=== PATIENT | female | born 1960 | race Caucasian/White ===

== ENCOUNTER 2018-09-17 10:51 | Emergency (ER) | payer MEDICARE, SELFPAY ==
[2018-09-17 10:54] VITALS: BP 155/87; PULSE 80; RESP 12; TEMP 37; O2SAT 99
--- NOTE | 2018-09-17 11:28 | ED.GENADUL_ITS ---
Discharge Plan Disposition Patient Disposition: HOME Condition: Improving Discharge Details Chief Complaint: EyeProblem Clinical Impression: Acute maxillary sinusitis, Acute conjunctivitis of left eye Primary Care Provider: Shashank Mar ED Provider: Ed Solis Home Meds and New Rx's Prescriptions: New amoxicillin-pot clavulanate 875-125 mg tablet 1 tab PO BID 10 Days Qty: 20 RF: 0 Continued fluticasone 50 mcg/actuation spray,suspension 1 spray MERRILL DAILY Qty: 9.9 RF: 11 ibuprofen 200 MG capsule 2 cap PO BID RF: 0 ferrous gluconate 325 MG tablet 325 mg PO DAILY Qty: 100 RF: 2 ascorbic acid (vitamin C) [Vitamin C] 500 MG tablet 500 mg PO BID RF: 0 calcium citrate-vitamin D3 1 EACH tablet 1 ea PO DAILY RF: 0 cholecalciferol (vitamin D3) 1,000 UNIT tablet 5,000 unit PO DAILY RF: 0 trazodone 100 MG tablet 100 mg PO DAILY Qty: 90 RF: 3 gabapentin 100 MG capsule 100 - 200 mg PO BID Qty: 300 RF: 6 lisinopril-hydrochlorothiazide 1 EACH tablet 0.5 tab-cap PO DAILY Qty: 45 RF: 4 doxepin 10 MG capsule 2 cap PO as directed Qty: 270 RF: 2 lorazepam 0.5 MG tablet 0.5 mg PO BID PRN for anxiety Qty: 60 RF: 3 cyanocobalamin (vitamin B-12) 1,000 MCG/1 ML solution 1 ml IM EVERY 5 DAYS 90 Days Qty: 18 RF: 3 syringe (disposable) 1 EACH syringe 1 ea IM EVERY 5 DAYS 90 Days Qty: 18 RF: 3 Discharge Instructions Instructions: Sinusitis (ED), Conjunctivitis (ED) Additional Instructions: 1 to eyedrops 3-4 times per day to left eye for 5 days. Augmentin as prescribed for 10 days. Continue regular medications. Return for development of pain in the eye, fever, worsening or any other acute concerns per Medical Decision Making 58-year-old female with left eye conjunctivitis with surrounding mild ecchymosis and edema, presents stating this feels similar to previous sinus infections with concomitant conjunctivitis. She is well-appearing with unremarkable vital signs. Will treat with topical antibiotic as well as Augmentin. She is stable for discharge to home. HPI General Mode of arrival: ambulatory . Date/Time Provider Initiated Documentation: 09/17/18 11:19 . Limitations to Documentation: no limitations . Information obtained by: patient . History of Present Illness 58 year old F presents to the emergency department with the chief complaint of Left eye swelling and discharge, described as moderate and similar to prior episodes, Quality is described as dull, and is localized to the eyes and left. Patient reports no radiation. Patient started experiencing this hour(s) and it has been constant. No relieving factors improve symptom(s), Patient did receive the following treatments prior to arrival, none Related Data Home Medications Medication Instructions Recorded Confirmed ferrous gluconate 325 mg PO DAILY #100 tab 12/02/12 08/02/18 ibuprofen 2 cap PO BID tab-cap 12/02/12 08/02/18 ascorbic acid (vitamin C) [Vitamin 500 mg PO BID 12/28/12 08/02/18 C] calcium citrate-vitamin D3 1 ea PO DAILY 09/20/13 08/02/18 cholecalciferol (vitamin D3) 5,000 unit PO DAILY 06/21/17 08/02/18 trazodone 100 mg PO DAILY #90 tab-cap 01/03/18 08/02/18 gabapentin 100 - 200 mg PO BID #300 tab-cap 02/03/18 08/02/18 lisinopril-hydrochlorothiazide 0.5 tab-cap PO DAILY #45 tab-cap 02/21/18 08/02/18 doxepin 2 cap PO as directed #270 tab-cap 03/08/18 08/02/18 lorazepam 0.5 mg PO BID PRN for anxiety #60 03/08/18 08/02/18 tab-cap cyanocobalamin (vitamin B-12) 1 ml IM EVERY 5 DAYS 90 Days #18 03/20/18 08/02/18 vial syringe (disposable) #18 syringe 03/20/18 08/02/18 fluticasone 50 mcg/actuation nasal 1 spray MERRILL DAILY #9.9 gm 06/16/18 08/02/18 spray,suspension amoxicillin-pot clavulanate 1 tab PO BID 10 Days #20 tab 09/17/18 Previous Rx's Medication Instructions Recorded trazodone 100 mg PO DAILY #90 tab-cap 01/03/18 gabapentin 100 - 200 mg PO BID #300 tab-cap 02/03/18 lisinopril-hydrochlorothiazide 0.5 tab-cap PO DAILY #45 tab-cap 02/21/18 doxepin 2 cap PO as directed #270 tab-cap 03/08/18 lorazepam 0.5 mg PO BID PRN for anxiety #60 03/08/18 tab-cap cyanocobalamin (vitamin B-12) 1 ml IM EVERY 5 DAYS 90 Days #18 03/20/18 vial syringe (disposable) #18 syringe 03/20/18 fluticasone 50 mcg/actuation nasal 1 spray MERRILL DAILY #9.9 gm 06/16/18 spray,suspension amoxicillin-pot clavulanate 1 tab PO BID 10 Days #20 tab 09/17/18 Allergies Allergy/AdvReac Type Severity Reaction Status Date / Time doxycycline AdvReac Severe ABD Unverified 09/17/18 10:58 CRAMPS/ CONSTIPATION propranolol AdvReac Intermediate DEPRESSION Unverified 09/17/18 10:58 albuterol AdvReac Mild tremors Unverified 09/17/18 10:58 meloxicam AdvReac Mild fluid Unverified 09/17/18 10:58 retention erythromycin base AdvReac Unknown NAUSEA/VOMI Unverified 09/17/18 10:58 TING General Stated Complaint: EyeProblem JOLENE: 4 Review of Systems Review of Systems 6 systems reviewed and otherwise neg [facility] Surgical History Ankle repair (left) Appendectomy Arthroplasty Biopsy of breast (~2005) Frozen shoulder Hand Surgery 11/01/16 Tonsillectomy Trigger Finger release (~07/2009) Family History Mother No problems noted. Father Essential hypertension Personal history of malignant neoplasm Sister Diabetes Essential hypertension Depression Brother No problems noted. Grandfather No problems noted. Grandfather Heart disease Stroke Grandmother Personal history of malignant neoplasm Grandmother Personal history of malignant neoplasm Son No problems noted. Daughter Asthma Social History household members: none current occupational status: disabled pets and animals: Yes pets and animals: cat(s) frequency: does not exercise Smoking/Tobacco Use Status: Current every day tobacco type: cigarettes alcohol intake: never substance use type: does not use darci/gnosticism: No preference special darci needs: No Exam Narrative Exam Narrative: GEN: awake, alert, oriented 3. Pleasant, well groomed, interactive. HEAD: Normocephalic, atraumatic ENT: Mucous membranes moist, oropharynx unremarkable, External ear exam unremarkable. Left frontal sinus tenderness to percussion, mild periorbital sweat and left EYES: PERRL, EOMI. left conjunctival injection, crusting of the eyelids, mild ecchymosis present. NECK: Full ROM, no GUSTAVO, no menigismus CHEST/RESP: Nontender, clear to auscultation bilateral, no wheeze/rhonchi/rales CARDIOVASCULAR: RRR, no murmur, rub gilberto. 2+ Rad pulse bilateral ABDOMEN: Soft, nontender, no mass. +Bowel sounds EXT: Full ROM, no edema, no rash Neuro: Grossly normal neurologic exam, conversant, interactive. Psych: Speech fluent, thoughts congruent, affect normal Course Vital Signs Temperature 37.0 C 09/17/18 10:54 Pulse 80 09/17/18 10:54 Respiratory Rate 12 09/17/18 10:54 Blood Pressure 155/87 H 09/17/18 10:54 Pulse Oximetry 99 09/17/18 10:54 Temperature 37.0 C 09/17/18 10:54 Pulse 80 09/17/18 10:54 Respiratory Rate 12 09/17/18 10:54 Respiratory Effort Non-Labored 09/17/18 10:56 Blood Pressure 155/87 H 09/17/18 10:54 Blood Pressure Position Sitting 09/17/18 10:54 Pulse Oximetry 99 09/17/18 10:54 Oxygen Delivery Method Room Air 09/17/18 10:54 Oxygen Flow Rate 0 09/17/18 10:54 Pain Level 4 09/17/18 10:54
[2018-09-17] MEDS: Polymyxin B/Trimethoprim Ophth Soln 10 ML BTL OS (11:36)
== END 2018-09-17 11:48 | disposition home or self-care (01) ==
PROVIDERS: Emergency Provider Emergency Medicine; PCP Family Medicine
DX: H02.844 Edema of left upper eyelid (principal); J01.00 Acute maxillary sinusitis, unspecified; H10.32 Unspecified acute conjunctivitis, left eye; I10 Essential (primary) hypertension
CPT/HCPCS: 99283

== ENCOUNTER 2018-09-27 11:22 | Outpatient (CLI) | payer MEDICARE, SELFPAY ==
[2018-09-27 12:42] LABS: Abs Immature Grans 0.01 k/cumm (0.0-0.09); Absolute Basophil Count 0.07 k/cumm (0.0-0.2); Absolute Eosinophil Count 0.09 k/cumm (0.0-0.7); Absolute Monocyte Count 0.49 k/cumm (0.11-0.7); Absolute Neutrophil Count 4.08 k/cumm (1.2-6.7); Basophils % 1.1; Eosinophils % 1.4; HCT 40.7 % (36.0-46.0); HGB 13.7 g/dL (12.0-15.5); Immature Grans % 0.2; Lymphocytes % 26.4; Mean Corp. HGB Concentration 33.7 g/dL (32.0-36.0); Mean Corpuscular Hemoglobin 27.2 pg (27.0-33.0); Mean Corpuscular Volume 80.8 fL (80-95); Mean Platelet Volume 9.4 fL (8.0-11.0); Monocytes % 7.6; Neutrophils % 63.3; Platelet Count 244 x1000/uL (130-400); RBC 5.04 m/cumm (4.00-5.20); RBC Distribution Width 14.8 % (11.7-14.6); White Blood Cell Count 6.44 k/cumm (4.4-10.8)
[2018-09-27 13:22] LABS: ALT 15 U/L (12-78); AST 11 U/L (15-37); Albumin 3.8 g/dL (3.4-5.0); Alkaline Phosphatase 61 U/L (46-116); Anion Gap 7.8 mmol/L (3-11); BUN 9 mg/dL (7-18); Bilirubin, Total 0.4 mg/dL (0.2-1.0); CO2 30.2 mmol/L (21.0-32.0); CREATININE 0.98 mg/dL (0.55-1.02); Calcium 9.4 mg/dL (8.5-10.1); Chloride 102 mmol/L (98-107); Cholesterol 196 mg/dL (50-200); Estimated GFR 57.89 (mL/min/1.73m2); Glucose 98 mg/dL (70-100); HDL Cholesterol 59 mg/dL (40-60); LDL CHOLESTEROL 129 mg/dL (<100); Potassium 3.9 mmol/L (3.5-5.1); Sodium 140 mmol/L (136-145); Total Protein 6.6 g/dL (6.4-8.2); Triglyceride 44 mg/dL (30-150)
== END 2018-09-27 11:42 ==
PROVIDERS: PCP Family Medicine; Visit Provider Family Medicine
DX: I10 Essential (primary) hypertension (principal); F17.200 Nicotine dependence, unspecified, uncomplicated; F32.9 Major depressive disorder, single episode, unspecified; J45.20 Mild intermittent asthma, uncomplicated
CPT/HCPCS: 36415; 80053; 80061; 83721; 85025

== ENCOUNTER 2019-02-12 13:41 | Emergency (ER) | payer MEDICARE, SELFPAY ==
[2019-02-12 13:45] VITALS: BP 161/72; PULSE 84; RESP 16; TEMP 36.8; O2SAT 98
--- NOTE | 2019-02-12 14:07 | W.ED.GENAD ---
Discharge Plan Disposition Patient Disposition: HOME Condition: Good Discharge Details Chief Complaint: Laceration Clinical Impression: Avulsion of skin of finger Primary Care Provider: Shashank Mar ED Provider: Gage Avila Home Meds and New Rx's Prescriptions: Continued fluticasone propionate 50 mcg/actuation spray,suspension 1 spray MERRILL DAILY Qty: 9.9 RF: 11 montelukast [Singulair] 10 mg tablet 10 mg PO QPM Qty: 30 RF: 11 trazodone 100 mg tablet 100 - 150 mg PO QHS Qty: 135 RF: 3 syringe (disposable) 3 mL syringe 1 ea IM EVERY 5 DAYS 90 Days Qty: 18 RF: 3 cyanocobalamin (vitamin B-12) 1,000 mcg/mL solution 1,000 mcg IM EVERY 5 DAYS 90 Days Qty: 18 RF: 3 ibuprofen 200 MG capsule 2 cap PO BID RF: 0 ferrous gluconate 325 MG tablet 325 mg PO DAILY Qty: 100 RF: 2 ascorbic acid (vitamin C) [Vitamin C] 500 MG tablet 500 mg PO BID RF: 0 calcium citrate-vitamin D3 1 EACH tablet 1 ea PO DAILY RF: 0 cholecalciferol (vitamin D3) 1,000 UNIT tablet 5,000 unit PO DAILY RF: 0 gabapentin 100 MG capsule 100 - 200 mg PO BID Qty: 300 RF: 6 lisinopril-hydrochlorothiazide 1 EACH tablet 0.5 tab-cap PO DAILY Qty: 45 RF: 4 lorazepam 0.5 MG tablet 0.5 mg PO BID PRN for anxiety Qty: 60 RF: 3 levalbuterol tartrate 45 mcg/actuation HFA aerosol inhaler 2 inh IH Q4H PRN (Reason: shortness of breath or wheezing) Qty: 15 RF: 11 Discharge Instructions Instructions: Skin Avulsion (ED) Additional Instructions: Continue to keep wound clean and dry and observe for any signs of infection. If wound looks infected please return to the emergency department for reassessment. Otherwise follow-up with primary care provider for reassessment as needed. Referrals: Shashank Mar [Primary Care Provider] - (As needed for reassessment) Discharge Data Discharge Date/Time-TO BE ENTERED AT DEPARTURE: 02/12/19 14:19 Medical Decision Making Patient presenting to the emergency department for chief complaint of left index finger injury. Patient states that she was placing an air conditioner in the window when it pinched her finger in between the unit and the windowsill. Patient denies any other injury or trauma. Patient states that she went through 3 bandages that continue to bleed before coming to the emergency department. Physical exam shows a skin avulsion to the radial aspect of the left index finger that is approximately 1.5 cm otherwise unremarkable exam with full range of motion, no other injury or trauma noted. I do not feel the patient needs radiological imaging but given that the wound continues to bleed patient consented to digital block and cleaning of the wound before applying Dermabond. This was all done without any incident and patient tolerated procedure well. Return precautions were discussed. After discussion of diagnosis and plan of care patient has no further needs, questions, or concerns and states clear understanding to return to the emergency department for any worsening symptoms. HPI General Mode of arrival: ambulatory. Date/Time Provider Initiated Documentation: 02/12/19 13:42. Limitations to Documentation: no limitations. Information obtained by: patient and RN notes reviewed. History of Present Illness 58 year old F presents to the emergency department with the chief complaint of Left index finger laceration, described as mild, with intensity rated at 3. Quality is described as aching, and is localized to the left and upper extremity. Patient started experiencing this hour(s) (1) and it has been constant. Patient notes no other symptoms.. Patient did receive the following treatments prior to arrival, none Related Data Home Medications Medication Instructions Recorded Confirmed ferrous gluconate 325 mg PO DAILY #100 tab 12/02/12 02/12/19 ibuprofen 2 cap PO BID tab-cap 12/02/12 02/12/19 ascorbic acid (vitamin C) [Vitamin 500 mg PO BID 12/28/12 02/12/19 C] calcium citrate-vitamin D3 1 ea PO DAILY 09/20/13 02/12/19 cholecalciferol (vitamin D3) 5,000 unit PO DAILY 06/21/17 02/12/19 gabapentin 100 - 200 mg PO BID #300 tab-cap 02/03/18 02/12/19 lisinopril-hydrochlorothiazide 0.5 tab-cap PO DAILY #45 tab-cap 02/21/18 02/12/19 lorazepam 0.5 mg PO BID PRN for anxiety #60 03/08/18 02/12/19 tab-cap fluticasone propionate 50 1 spray MERRILL DAILY #9.9 gm 06/16/18 02/12/19 mcg/actuation nasal spray,suspension montelukast 10 mg tablet 10 mg PO QPM #30 tab 09/27/18 02/12/19 cyanocobalamin (vit B-12) 1,000 1,000 mcg IM EVERY 5 DAYS 90 Days 01/09/19 02/12/19 mcg/mL injection solution #18 vial syringe (disposable) 3 mL #18 syringe 01/09/19 01/09/19 trazodone 100 mg tablet 100 - 150 mg PO QHS #135 tab-cap 01/09/19 02/12/19 levalbuterol HFA 45 mcg/actuation 2 inh IH Q4H PRN #15 gm 02/07/19 02/12/19 aerosol inhaler Previous Rx's Medication Instructions Recorded gabapentin 100 - 200 mg PO BID #300 tab-cap 02/03/18 lisinopril-hydrochlorothiazide 0.5 tab-cap PO DAILY #45 tab-cap 02/21/18 lorazepam 0.5 mg PO BID PRN for anxiety #60 03/08/18 tab-cap fluticasone propionate 50 1 spray MERRILL DAILY #9.9 gm 06/16/18 mcg/actuation nasal spray,suspension montelukast 10 mg tablet 10 mg PO QPM #30 tab 09/27/18 cyanocobalamin (vit B-12) 1,000 1,000 mcg IM EVERY 5 DAYS 90 Days 01/09/19 mcg/mL injection solution #18 vial syringe (disposable) 3 mL #18 syringe 01/09/19 trazodone 100 mg tablet 100 - 150 mg PO QHS #135 tab-cap 01/09/19 levalbuterol HFA 45 mcg/actuation 2 inh IH Q4H PRN #15 gm 02/07/19 aerosol inhaler Allergies Allergy/AdvReac Type Severity Reaction Status Date / Time doxycycline AdvReac Severe ABD Unverified 01/09/19 11:56 CRAMPS/ CONSTIPATION propranolol AdvReac Intermediate DEPRESSION Unverified 01/09/19 11:56 albuterol AdvReac Mild tremors Unverified 01/09/19 11:56 meloxicam AdvReac Mild fluid Unverified 01/09/19 11:56 retention erythromycin base AdvReac Unknown NAUSEA/VOMI Unverified 01/09/19 11:56 TING General Stated Complaint: Laceration JOLENE: 4 Review of Systems Musculoskeletal Denies deformity, Denies limited range of motion and Denies numbness Integumentary/Breasts Reports as per HPI Neurologic Denies numbness and Denies paresthesias [facility] Surgical History Ankle repair (left) Appendectomy Arthroplasty Biopsy of breast (~2005) Frozen shoulder Hand Surgery 11/01/16 Tonsillectomy Trigger Finger release (~07/2009) Family History Mother ALS (amyotrophic lateral sclerosis) Father Essential hypertension Prostate cancer Stroke Sister Diabetes Essential hypertension Depression Heart disease Brother Alcohol abuse Depression Essential hypertension Maternal Grandfather No problems noted. Paternal Grandfather Heart disease Stroke Maternal Grandmother Cancer Paternal Grandmother Vaginal cancer Son No problems noted. Daughter Asthma Social History Smoking/Tobacco Use Status: Current every day Tobacco Type: cigarettes Smoking cigarettes per day: 10 Quit status: considering quitting Second Hand Exposure: Yes Alcohol Intake: never Drug use: Never Substance use type: does not use Household members: none Housing: house Pets and animals: Yes Pets and animals: cat(s) Sexually active: No Do you think of yourself as: straight/heterosexual Current gender identity: female What is your relationship status?: How often do you talk on the phone with friends or family?: three or more times per week How often do you get together with friends or relatives?: three or more times per week How often do you attend religion or methodist services?: decline to answer Do you belong to any clubs or organized social groups?: no Panel score (0-1 are the most socially isolated patients): 1 What type of physical activity do you participate in: other Details: Daily chores Duration: 60-90 minutes/day Frequency: daily Jessica/Advent: No preference Special jessica needs: No Do you feel safe at home: Yes Do you feel safe in your relationship?: Yes Exam Const General: cooperative and no acute distress Orientation: alert, awake and oriented x3 Limitations: mental status not altered Resp Effort & Inspection: normal respiratory effort and able to speak in complete sentences Extrem Left upper extremity: hand Details: normal capillary refill, neuromotor exam normal, neurosensory exam normal, tendon exam normal, normal ROM of fingers and laceration (1.5 cm skin avulsion to index finger-radial aspect) Course Vital Signs Temperature 36.8 C 02/12/19 13:45 Pulse 84 02/12/19 13:45 Respiratory Rate 16 02/12/19 13:45 Blood Pressure 161/72 H 02/12/19 13:45 Pulse Oximetry 98 02/12/19 13:45 Temperature 36.8 C 02/12/19 13:45 Temperature Source Tympanic 02/12/19 13:45 Pulse 84 02/12/19 13:45 Respiratory Rate 16 02/12/19 13:45 Respiratory Effort 02/12/19 13:49 Blood Pressure 161/72 H 02/12/19 13:45 Blood Pressure Position Sitting 02/12/19 13:45 Pulse Oximetry 98 02/12/19 13:45 Oxygen Delivery Method Room Air 02/12/19 13:45 Oxygen Flow Rate 0 02/12/19 13:45 Pain Level 4 02/12/19 13:56 Procedures Laceration L index: Site: hand (index finger) Side (If applicable): left Size (cm): 1.5 Description: linear Depth: simple, single layer (Superficial) Local Anesthetic: Lidocaine 1% (Digital block) Amount of anesthesia used (mL): 2 Pre-repair: wound explored and irrigated extensively Skin layer closed with: other (Skin adhesive)
--- NOTE | 2019-02-12 14:11 | ED.GENADUL_ITS ---
Discharge Plan Disposition Patient Disposition: HOME Condition: Good Discharge Details Chief Complaint: Laceration Clinical Impression: Avulsion of skin of finger Primary Care Provider: Shashank Mar ED Provider: Gage Avila Home Meds and New Rx's Prescriptions: Continued fluticasone propionate 50 mcg/actuation spray,suspension 1 spray MERRILL DAILY Qty: 9.9 RF: 11 montelukast [Singulair] 10 mg tablet 10 mg PO QPM Qty: 30 RF: 11 trazodone 100 mg tablet 100 - 150 mg PO QHS Qty: 135 RF: 3 syringe (disposable) 3 mL syringe 1 ea IM EVERY 5 DAYS 90 Days Qty: 18 RF: 3 cyanocobalamin (vitamin B-12) 1,000 mcg/mL solution 1,000 mcg IM EVERY 5 DAYS 90 Days Qty: 18 RF: 3 ibuprofen 200 MG capsule 2 cap PO BID RF: 0 ferrous gluconate 325 MG tablet 325 mg PO DAILY Qty: 100 RF: 2 ascorbic acid (vitamin C) [Vitamin C] 500 MG tablet 500 mg PO BID RF: 0 calcium citrate-vitamin D3 1 EACH tablet 1 ea PO DAILY RF: 0 cholecalciferol (vitamin D3) 1,000 UNIT tablet 5,000 unit PO DAILY RF: 0 gabapentin 100 MG capsule 100 - 200 mg PO BID Qty: 300 RF: 6 lisinopril-hydrochlorothiazide 1 EACH tablet 0.5 tab-cap PO DAILY Qty: 45 RF: 4 lorazepam 0.5 MG tablet 0.5 mg PO BID PRN for anxiety Qty: 60 RF: 3 levalbuterol tartrate 45 mcg/actuation HFA aerosol inhaler 2 inh IH Q4H PRN (Reason: shortness of breath or wheezing) Qty: 15 RF: 11 Discharge Instructions Instructions: Skin Avulsion (ED) Additional Instructions: Continue to keep wound clean and dry and observe for any signs of infection. If wound looks infected please return to the emergency department for reassessment. Otherwise follow-up with primary care provider for reassessment as needed. Referrals: Shashank Mar [Primary Care Provider] - (As needed for reassessment) Discharge Data Discharge Date/Time-TO BE ENTERED AT DEPARTURE: 02/12/19 14:19 Medical Decision Making Patient presenting to the emergency department for chief complaint of left index finger injury. Patient states that she was placing an air conditioner in the window when it pinched her finger in between the unit and the windowsill. Patient denies any other injury or trauma. Patient states that she went through 3 bandages that continue to bleed before coming to the emergency department. Physical exam shows a skin avulsion to the radial aspect of the left index finger that is approximately 1.5 cm otherwise unremarkable exam with full range of motion, no other injury or trauma noted. I do not feel the patient needs radiological imaging but given that the wound continues to bleed patient consented to digital block and cleaning of the wound before applying Dermabond. This was all done without any incident and patient tolerated procedure well. Return precautions were discussed. After discussion of diagnosis and plan of care patient has no further needs, questions, or concerns and states clear understanding to return to the emergency department for any worsening symptoms. HPI General Mode of arrival: ambulatory . Date/Time Provider Initiated Documentation: 02/12/19 13:42 . Limitations to Documentation: no limitations . Information obtained by: patient and RN notes reviewed . History of Present Il catarinaess 58 year old F presents to the emergency department with the chief complaint of Left index finger laceration, described as mild, with intensity rated at 3. Quality is described as aching, and is localized to the left and upper extremity. Patient started experiencing this hour(s) (1) and it has been constant. Patient notes no other symptoms.. Patient did receive the following treatments prior to arrival, none Related Data Home Medications Medication Instructions Recorded Confirmed ferrous gluconate 325 mg PO DAILY #100 tab 12/02/12 02/12/19 ibuprofen 2 cap PO BID tab-cap 12/02/12 02/12/19 ascorbic acid (vitamin C) [Vitamin 500 mg PO BID 12/28/12 02/12/19 C] calcium citrate-vitamin D3 1 ea PO DAILY 09/20/13 02/12/19 cholecalciferol (vitamin D3) 5,000 unit PO DAILY 06/21/17 02/12/19 gabapentin 100 - 200 mg PO BID #300 tab-cap 02/03/18 02/12/19 lisinopril-hydrochlorothiazide 0.5 tab-cap PO DAILY #45 tab-cap 02/21/18 02/12/19 lorazepam 0.5 mg PO BID PRN for anxiety #60 03/08/18 02/12/19 tab-cap fluticasone propionate 50 1 spray MERRILL DAILY #9.9 gm 06/16/18 02/12/19 mcg/actuation nasal spray,suspension montelukast 10 mg tablet 10 mg PO QPM #30 tab 09/27/18 02/12/19 cyanocobalamin (vit B-12) 1,000 1,000 mcg IM EVERY 5 DAYS 90 Days 01/09/19 02/12/19 mcg/mL injection solution #18 vial syringe (disposable) 3 mL #18 syringe 01/09/19 01/09/19 trazodone 100 mg tablet 100 - 150 mg PO QHS #135 tab-cap 01/09/19 02/12/19 levalbuterol HFA 45 mcg/actuation 2 inh IH Q4H PRN #15 gm 02/07/19 02/12/19 aerosol inhaler Previous Rx's Medication Instructions Recorded gabapentin 100 - 200 mg PO BID #300 tab-cap 02/03/18 lisinopril-hydrochlorothiazide 0.5 tab-cap PO DAILY #45 tab-cap 02/21/18 lorazepam 0.5 mg PO BID PRN for anxiety #60 03/08/18 tab-cap fluticasone propionate 50 1 spray MERRILL DAILY #9.9 gm 06/16/18 mcg/actuation nasal spray,suspension montelukast 10 mg tablet 10 mg PO QPM #30 tab 09/27/18 cyanocobalamin (vit B-12) 1,000 1,000 mcg IM EVERY 5 DAYS 90 Days 01/09/19 mcg/mL injection solution #18 vial syringe (disposable) 3 mL #18 syringe 01/09/19 trazodone 100 mg tablet 100 - 150 mg PO QHS #135 tab-cap 01/09/19 levalbuterol HFA 45 mcg/actuation 2 inh IH Q4H PRN #15 gm 02/07/19 aerosol inhaler Allergies Allergy/AdvReac Type Severity Reaction Status Date / Time doxycycline AdvReac Severe ABD Unverified 01/09/19 11:56 CRAMPS/ CONSTIPATION propranolol AdvReac Intermediate DEPRESSION Unverified 01/09/19 11:56 albuterol AdvReac Mild tremors Unverified 01/09/19 11:56 meloxicam AdvReac Mild fluid Unverified 01/09/19 11:56 retention erythromycin base AdvReac Unknown NAUSEA/VOMI Unverified 01/09/19 11:56 TING General Stated Complaint: Laceration JOLENE: 4 Review of Systems Musculoskeletal Denies deformity, Denies limited range of motion and Denies numbness Integumentary/Breasts Reports as per HPI Neurologic Denies numbness and Denies paresthesias [facility] Surgical History Ankle repair (left) Appendectomy Arthroplasty Biopsy of breast (~2005) Frozen shoulder Hand Surgery 11/01/16 Tonsillectomy Trigger Finger release (~07/2009) Family History Mother ALS (amyotrophic lateral sclerosis) Father Essential hypertension Prostate cancer Stroke Sister Diabetes Essential hypertension Depression Heart disease Brother Alcohol abuse Depression Essential hypertension Maternal Grandfather No problems noted. Paternal Grandfather Heart disease Stroke Maternal Grandmother Cancer Paternal Grandmother Vaginal cancer Son No problems noted. Daughter Asthma Social History Smoking/Tobacco Use Status: Current every day Tobacco Type: cigarettes Smoking cigarettes per day: 10 Quit status: considering quitting Second Hand Exposure: Yes Alcohol Intake: never Drug use: Never Substance use type: does not use Household members: none Housing: house Pets and animals: Yes Pets and animals: cat(s) Sexually active: No Do you think of yourself as: straight/heterosexual Current gender identity: female What is your relationship status?: How often do you talk on the phone with friends or family?: three or more times per week How often do you get together with friends or relatives?: three or more times per week How often do you attend moravian or nondenominational services?: decline to answer Do you belong to any clubs or organized social groups?: no Panel score (0-1 are the most socially isolated patients): 1 What type of physical activity do you participate in: other Details: Daily chores Duration: 60-90 minutes/day Frequency: daily Jessica/Buddhism: No preference Special jessica needs: No Do you feel safe at home: Yes Do you feel safe in your relationship?: Yes Exam Const General: cooperative and no acute distress Orientation: alert, awake and oriented x3 Limitations: mental status not altered Resp Effort & Inspection: normal respiratory effort and able to speak in complete sentences Extrem Left upper extremity: hand Details: normal capillary refill, neuromotor exam normal, neurosensory exam normal, tendon exam normal, normal ROM of fingers and laceration (1.5 cm skin avulsion to index finger-radial aspect) Course Vital Signs Temperature 36.8 C 02/12/19 13:45 Pulse 84 02/12/19 13:45 Respiratory Rate 16 02/12/19 13:45 Blood Pressure 161/72 H 02/12/19 13:45 Pulse Oximetry 98 02/12/19 13:45 Temperature 36.8 C 02/12/19 13:45 Temperature Source Tympanic 02/12/19 13:45 Pulse 84 02/12/19 13:45 Respiratory Rate 16 02/12/19 13:45 Respiratory Effort 02/12/19 13:49 Blood Pressure 161/72 H 02/12/19 13:45 Blood Pressure Position Sitting 02/12/19 13:45 Pulse Oximetry 98 02/12/19 13:45 Oxygen Delivery Method Room Air 02/12/19 13:45 Oxygen Flow Rate 0 02/12/19 13:45 Pain Level 4 02/12/19 13:56 Procedures Laceration L index: Site: hand (index finger) Side (If applicable): left Size (cm): 1.5 Description: linear Depth: simple, single layer (Superficial) Local Anesthetic: Lidocaine 1% (Digital block) Amount of anesthesia used (mL): 2 Pre-repair: wound explored and irrigated extensively Skin layer closed with: other (Skin adhesive)
== END 2019-02-12 14:19 | disposition home or self-care (01) ==
LOC: ER 14:26
PROVIDERS: Emergency Provider Nurse Practitioner Family; PCP Family Medicine
DX: S67.191A Crushing injury of left index finger, initial encounter (principal); S61.211A Laceration without foreign body of left index finger without damage to nail, initial encounter; W23.0XXA Caught, crushed, jammed, or pinched between moving objects, initial encounter
CPT/HCPCS: 12001

== ENCOUNTER 2019-03-26 19:35 | Outpatient (REF) | payer MEDICARE, SELFPAY ==
[2019-03-26 20:18] LABS: Bilirubin Negative (Negative); Blood Large (Negative); Clarity Clear (Clear); Glucose Negative (Negative); Ketones Negative (Negative); Leukocyte Esterase Large (Negative); Nitrite Negative (Negative); Urobilinogen 0.2 EU/dL (Up TO 0.2)
[2019-03-26 20:21] LABS: C & S Indicated? C&S Done As Ordered
[2019-03-26 21:29] LABS: Bacteria Many HPF (Negative); Casts Negative LPF (Negative); Crystals Negative HPF (Negative); Epithelial Cells Negative HPF (Negative); Mucus Negative (Negative); RBC >50 (0-2); WBC >50 HPF (0-5)
== END 2019-03-26 19:55 ==
LOC: LBN 19:35
PROVIDERS: PCP Family Medicine; Visit Provider Family Medicine
DX: R30.0 Dysuria (principal)
CPT/HCPCS: 81003; 81015; 87086

== ENCOUNTER 2019-08-20 07:00 | Outpatient (CLI) | payer MEDICARE, SELFPAY ==
[2019-08-20 12:57] LABS: Abs Immature Grans 0.01 k/cumm (0.0-0.09); Absolute Basophil Count 0.08 k/cumm (0.0-0.2); Absolute Eosinophil Count 0.14 k/cumm (0.0-0.7); Absolute Lymphocyte Count 1.73 k/cumm (1.2-3.4); Absolute Monocyte Count 0.53 k/cumm (0.11-0.7); Absolute Neutrophil Count 3.61 k/cumm (1.2-6.7); Basophils % 1.3; Eosinophils % 2.3; HCT 41.8 % (36.0-46.0); HGB 14.2 g/dL (12.0-15.5); Immature Grans % 0.2 %; Lymphocytes % 28.4; Mean Corpuscular Hemoglobin 27.3 pg (27.0-33.0); Mean Corpuscular Volume 80.2 fL (80-95); Mean Platelet Volume 9.3 fL (8.0-11.0); Monocytes % 8.7; Neutrophils % 59.1; Platelet Count 263 x1000/uL (130-400); RBC 5.21 m/cumm (4.00-5.20); RBC Distribution Width 14.8 % (11.7-14.6)
[2019-08-20 13:13] LABS: Bilirubin Negative (Negative); Blood Negative (Negative); Clarity Clear (Clear); Glucose Negative (Negative); Ketones Negative (Negative); Leukocyte Esterase Small (Negative); Nitrite Negative (Negative); Specific Gravity 1.015 (1.005-1.025); Urobilinogen 0.2 EU/dL (Up TO 0.2)
[2019-08-20 13:16] LABS: AST 15 U/L (15-37); Albumin 4.1 g/dL (3.4-5.0); Alkaline Phosphatase 59 U/L (46-116); Anion Gap 6.5 mmol/L (3-11); BUN 10 mg/dL (7-18); Bilirubin, Total 0.7 mg/dL (0.2-1.0); CO2 31.5 mmol/L (21.0-32.0); CREATININE 0.92 mg/dL (0.55-1.02); Calcium 9.4 mg/dL (8.5-10.1); Chloride 102 mmol/L (98-107); Glucose 96 mg/dL (74-106); Potassium 4.1 mmol/L (3.5-5.1); Sodium 140 mmol/L (136-145); TSH (W/Ref FT4) 0.92 uIU/mL (0.36-3.74); Total Protein 6.8 g/dL (6.4-8.2)
[2019-08-20 13:19] LABS: ALT < 6 U/L (14-59)
[2019-08-20 13:41] LABS: Bacteria Few HPF (Negative); C & S Indicated? Yes; Casts Negative LPF (Negative); Crystals Negative HPF (Negative); Epithelial Cells Negative HPF (Negative); Mucus Negative (Negative); Other Cells Few Renal (Negative); RBC Negative HPF (0-2)
== END 2019-08-20 07:20 ==
PROVIDERS: PCP Family Medicine; Visit Provider Family Medicine
DX: R53.83 Other fatigue (principal); R82.998 Other abnormal findings in urine
CPT/HCPCS: 36415; 80053; 81003; 81015; 84443; 85025; 87086

== ENCOUNTER 2019-09-17 21:24 | Outpatient (REF) | payer MEDICARE, SELFPAY ==
[2019-09-17 22:18] LABS: Bilirubin Negative (Negative); Blood Negative (Negative); Clarity Clear (Clear); Glucose Negative (Negative); Ketones Negative (Negative); Leukocyte Esterase Trace (Negative); Nitrite Negative (Negative); Specific Gravity 1.015 (1.005-1.025); Urobilinogen 0.2 EU/dL (Up TO 0.2)
[2019-09-17 22:24] LABS: C & S Indicated? C&S Done As Ordered
[2019-09-17 22:25] LABS: Epithelial Cells Few HPF (Negative); RBC Negative HPF (0-2); WBC 0-2 HPF (0-5)
[2019-09-17 22:26] LABS: Bacteria Negative HPF (Negative); Casts Negative LPF (Negative); Crystals Negative HPF (Negative); Mucus Negative (Negative); Other Cells Negative (Negative)
== END 2019-09-17 21:44 ==
LOC: LBN 21:24
PROVIDERS: PCP Family Medicine; Visit Provider Family Medicine
DX: R10.9 Unspecified abdominal pain (principal)
CPT/HCPCS: 81003; 81015; 87086

== ENCOUNTER 2020-01-21 22:19 | Outpatient (REF) | payer MEDICARE, SELFPAY | END 2020-01-21 22:39 | LOC: LBN 22:19 | PROVIDERS: PCP Family Medicine; Visit Provider Nurse Practitioner Family | DX: R30.0 Dysuria (principal) | CPT/HCPCS: 87077; 87086; 87186 ==

== ENCOUNTER 2020-02-22 14:04 | Emergency (ER) | payer MEDICARE, SELFPAY ==
[2020-02-22 14:11] VITALS: BP 162/72; PULSE 85; RESP 20; TEMP 36.7; O2SAT 96
--- NOTE | 2020-02-22 14:15 | DI.RAD_ITS ---
EXAM: XR WRIST LT COMPLETE CLINICAL HISTORY: fall/pain. TECHNIQUE: 2D digital imaging was performed. COMPARISON: No exams were available for comparison FINDINGS: BONES: No acute fracture is present. No bony destructive lesion is seen. JOINTS: The carpal bones are normally aligned. There are degenerative changes of the 1st carpal metac arpal joint. SOFT TISSUE: Normal. IMPRESSION: Degenerative changes. No acute abnormality. DATA REPOSITORY: RADIATION DOSE DELIVERED:
--- NOTE | 2020-02-22 14:21 | ED.GENADUL_ITS ---
Discharge Plan Disposition Patient Disposition: HOME Condition: Stable Discharge Details Chief Complaint: Orthopedic Clinical Impression: Pain, wrist Primary Care Provider: Shashank Mar ED Provider: Doug Howard Home Meds and New Rx's Prescriptions: Continued fluticasone propionate 50 mcg/actuation spray,suspension 1 spray MERRILL DAILY Qty: 9.9 RF: 11 montelukast [Singulair] 10 mg tablet 10 mg PO QPM Qty: 90 RF: 3 cetirizine 10 mg tablet 10 mg PO DAILY Qty: 90 RF: 3 lisinopril-hydrochlorothiazide 10-12.5 mg tablet 1 tab PO DAILY Qty: 90 RF: 3 trazodone 100 mg tablet 100 mg PO QHS RF: 0 lorazepam 0.5 mg tablet 0.5 mg PO BID PRN for anxiety PRNRF: 0 azelastine 0.05 % drops 1 drp OP BID Qty: 6 RF: 5 Saccharomyces boulardii [Daily Probiotic (S. boulardii)] 250 mg capsule 250 mg PO BID Qty: 60 RF: 3 ascorbic acid (vitamin C) [Vitamin C] 500 MG tablet 500 mg PO BID RF: 0 calcium citrate-vitamin D3 1 EACH tablet 1 ea PO DAILY RF: 0 cholecalciferol (vitamin D3) 1,000 UNIT tablet 5,000 unit PO DAILY RF: 0 levalbuterol tartrate 45 mcg/actuation HFA aerosol inhaler 2 inh IH Q4H PRN (Reason: shortness of breath or wheezing) Qty: 15 RF: 11 (DME) syringe (disposable) 3 mL syringe 1 ea IM EVERY 5 DAYS 90 Days Qty: 18 RF: 3 cyanocobalamin (vitamin B-12) 1,000 mcg/mL solution 1,000 mcg IM EVERY 5 DAYS 90 Days Qty: 18 RF: 3 gabapentin 100 mg capsule 200 mg PO TID Qty: 540 RF: 3 nitrofurantoin monohyd/m-cryst [Macrobid] 100 mg capsule 100 mg PO BID Qty: 10 RF: 0 triamcinolone acetonide 0.5 % cream 1 applic TP BID Qty: 60 RF: 5 Discharge Instructions Instructions: Wrist Injury (ED) Additional Instructions: X-ray does not reveal any obvious injury. Wear splint as needed, advance activity as tolerated. Iqrs-[id number]-vaneyet medications such as Tylenol and/or Motrin as directed for discomfort. Rest, elevate, cool compresses every 2 hours for 20 days. Please watch for new or worsening symptoms and return to the ER for any concerns. I do recommend following up with your primary care provider in 5-7 days if you do not have moderate improvement with conservative therapy Medical Decision Making Patient presents to the ER having had a mechanical slip and fall injuring her left wrist. This occurred late last night early this morning. She is right- hand dominant. Neuro, vascular, tendon intact. No distracting injury. Will obtain x-ray to rule any bony involvement Wrist x-ray read by me and then confirmed by radiology as no acute fracture. Discussed x-ray findings with patient. She is relieved and is agreeable for a premade wrist splint. Applied without difficulty. She reports it does feel better with immobility and support. No additional questions or concerns and she is comfortable with discharge. Medical Records Medical records reviewed: Yes I reviewed the patient's medical records. HPI General Mode of arrival: ambulatory . Date/Time Provider Initiated Documentation: 02/22/20 14:20 . Limitations to Documentation: no limitations . Information obtained by: patient . HPI Narrative: 59-year-old female with history of neuropathy, anxiety, arthritis, hypertension, seizures, asthma, presents having had a mechanical fall late last night, early this morning between 12 and 1. She slipped on wet grass and injured her left wrist. She reports the pain is mild at rest but moderate with any movement. She reports no change in her numbness, tingling, weakness other than her baseline neuropathy. She denies any other injury. She did not strike her head or have a LOC. She is right-hand dominant Related Data Home Medications Medication Instructions Recorded Confirmed ascorbic acid (vitamin C) [Vitamin 500 mg PO BID 12/28/12 02/22/20 C] calcium citrate-vitamin D3 1 ea PO DAILY 09/20/13 02/22/20 cholecalciferol (vitamin D3) 5,000 unit PO DAILY 06/21/17 02/22/20 fluticasone propionate 50 1 spray MERRILL DAILY #9.9 gm 06/16/18 02/22/20 mcg/actuation nasal spray,suspension levalbuterol tartrate 45 2 inh IH Q4H PRN #15 gm 02/07/19 02/22/20 mcg/actuation aerosol inhaler cyanocobalamin (vitamin B-12) 1,000 mcg IM EVERY 5 DAYS 90 Days 03/12/19 02/22/20 1,000 mcg/mL injection solution #18 vial syringe (disposable) 3 mL #18 syringe 03/12/19 02/22/20 lorazepam 0.5 mg tablet 0.5 mg PO BID PRN for anxiety PRN 06/13/19 02/22/20 tab-cap trazodone 100 mg tablet 100 mg PO QHS tab-cap 06/13/19 02/22/20 cetirizine 10 mg tablet 10 mg PO DAILY #90 tab 09/24/19 02/22/20 lisinopril 10 1 tab PO DAILY #90 tab-cap 09/24/19 02/22/20 mg-hydrochlorothiazide 12.5 mg tablet montelukast 10 mg tablet 10 mg PO QPM #90 tab 09/24/19 02/22/20 gabapentin 100 mg capsule 200 mg PO TID #540 tab-cap 12/18/19 02/22/20 Saccharomyces boulardii 250 mg 250 mg PO BID #60 cap 12/19/19 02/22/20 capsule azelastine 0.05 % eye drops 1 drp OP BID #6 ml 12/19/19 02/22/20 nitrofurantoin 100 mg PO BID #10 cap 01/22/20 02/22/20 monohydrate/macrocrystals 100 mg capsule triamcinolone acetonide 0.5 % 1 applic TP BID #60 gm 01/22/20 02/22/20 topical cream Previous Rx's Medication Instructions Recorded fluticasone propionate 50 1 spray MERRILL DAILY #9.9 gm 06/16/18 mcg/actuation nasal spray,suspension levalbuterol tartrate 45 2 inh IH Q4H PRN #15 gm 02/07/19 mcg/actuation aerosol inhaler cyanocobalamin (vitamin B-12) 1,000 mcg IM EVERY 5 DAYS 90 Days 03/12/19 1,000 mcg/mL injection solution #18 vial syringe (disposable) 3 mL #18 syringe 03/12/19 cetirizine 10 mg tablet 10 mg PO DAILY #90 tab 09/24/19 lisinopril 10 1 tab PO DAILY #90 tab-cap 09/24/19 mg-hydrochlorothiazide 12.5 mg tablet montelukast 10 mg tablet 10 mg PO QPM #90 tab 09/24/19 gabapentin 100 mg capsule 200 mg PO TID #540 tab-cap 12/18/19 Saccharomyces boulardii 250 mg 250 mg PO BID #60 cap 12/19/19 capsule azelastine 0.05 % eye drops 1 drp OP BID #6 ml 12/19/19 nitrofurantoin 100 mg PO BID #10 cap 01/22/20 monohydrate/macrocrystals 100 mg capsule triamcinolone acetonide 0.5 % 1 applic TP BID #60 gm 01/22/20 topical cream Allergies Allergy/AdvReac Type Severity Reaction Status Date / Time doxycycline AdvReac Severe ABD Verified 02/22/20 14:13 CRAMPS/ CONSTIPATION propranolol AdvReac Intermediate DEPRESSION Verified 02/22/20 14:13 albuterol AdvReac Mild tremors Verified 02/22/20 14:13 meloxicam AdvReac Mild fluid Verified 02/22/20 14:13 retention erythromycin base AdvReac Unknown NAUSEA/VOMI Verified 02/22/20 14:13 TING General Stated Complaint: Orthopedic JOLENE: 4 Review of Systems Constitutional Constitutional: Denies fever(s) and Denies headache(s) Eyes Eyes: Denies change in vision ENT Ears, Nose, Mouth, and Throat: Denies headache(s) and Denies neck pain Cardiovascular Cardiovascular: Denies chest pain and Denies dyspnea Respiratory Respiratory: Denies dyspnea Gastrointestinal Gastrointestinal: Denies nausea Musculoskeletal Musculoskeletal: Reports back pain (Chronic) and Denies neck pain Neurologic Neurologic: Denies headache(s) [facility] Surgical History Ankle repair (left) Appendectomy age 13 Arthroplasty [facility] [place] 10/11/17; RIGHT BASAL JOINT WITH PINNING Biopsy of breast (~2005) Frozen shoulder Hand Surgery 11/01/16 Tonsillectomy Trigger Finger release (~07/2009) Thumb Family History Mother , 70 ALS (amyotrophic lateral sclerosis) Father Essential hypertension Prostate cancer Stroke Skin cancer Sister Diabetes Essential hypertension Depression Heart disease Brother Alcohol abuse Depression Essential hypertension Maternal Grandfather No problems noted. Paternal Grandfather , 89 Heart disease Stroke Maternal Grandmother , approx 60 Cancer Paternal Grandmother , 59 Vaginal cancer Heart disease Son Heart disease Daughter Asthma Social History Smoking/Tobacco Use Status: Current every day Tobacco Type: cigarettes Tobacco: How many years used: 30 Quit status: considering quitting Second Hand Exposure: Yes Alcohol Intake: never Drug use: Never Substance use type: does not use Caregiver/Support person: No Household members: none Housing: house Communication Needs: Hard of Hearing and Corrective Lenses Do you need help understanding health information?: Rarely Pets and animals: Yes Pets and animals: cat(s) Sexually active: No Do you think of yourself as: straight/heterosexual Current gender identity: female What is your relationship status?: How often do you talk on the phone with friends or family?: three or more times per week How often do you get together with friends or relatives?: three or more times per week How often do you attend religion or mu-ism services?: decline to answer Do you belong to any clubs or organized social groups?: no Panel score (0-1 are the most socially isolated patients): 1 What type of physical activity do you participate in: decline to answer Duration: decline to answer Frequency: decline to answer Jessica/Muslim: None Special jessica needs: No Seatbelt use: sometimes Drive intox or ride 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: No Do you feel safe at home: Yes Do you feel safe in your relationship?: Yes Exam Const General: cooperative, healthy appearing, comfortable and no acute distress Orientation: alert and awake HENMT Head: normal to inspection, normocephalic and atraumatic Mouth: moist mucous membranes Eyes Conjunctivae: conjunctivae normal Neck Neck: normal visual inspection, trachea midline and supple Resp Effort & Inspection: normal respiratory effort and able to speak in complete sentences Cardio Rate: regular rate Rhythm: regular rhythm Skin General skin exam: no rashes or lesions noted Neuro General: patient alert, patient awake, moves all extremities and no focal motor deficits Sensory Exam: no sensory deficits noted Extrem Left upper extremity: normal capillary refill and wrist Details: tenderness Location: of the distal radius and of the distal ulna, swelling Location: other (Mild diffuse dorsal wrist), normal ROM and abnormal ROM (Range of motion increases discomfort) Psych Appearance: grossly normal Mental Status: mental status grossly normal Course Vital Signs Vital signs: Vital Signs Temperature 36.7 C 07/10/20 14:11 Pulse 85 02/22/20 14:11 Respiratory Rate 20 02/22/20 14:11 Blood Pressure 162/72 H 02/22/20 14:11 Pulse Oximetry 96 02/22/20 14:11 Temperature 36.7 C 02/22/20 14:11 Temperature Source Skin 02/22/20 14:11 Pulse 85 02/22/20 14:11 Respiratory Rate 20 02/22/20 14:11 Respiratory Effort Non-Labored 02/22/20 14:12 Blood Pressure 162/72 H 02/22/20 14:11 Blood Pressure Position Sitting 02/22/20 14:11 Pulse Oximetry 96 02/22/20 14:11 Oxygen Delivery Method Room Air 02/22/20 14:11 Oxygen Flow Rate 0 02/22/20 14:11 Pain Level 7 02/22/20 14:11 Comment 02/22/20 14:11
== END 2020-02-22 15:19 | disposition home or self-care (01) ==
PROVIDERS: Emergency Provider Physician Assistant; PCP Family Medicine
DX: M25.532 Pain in left wrist (principal); I10 Essential (primary) hypertension
CPT/HCPCS: 29125; 99283; 73110; L3908

== ENCOUNTER 2020-03-12 13:22 | Outpatient (REF) | payer MEDICARE, SELFPAY ==
[2020-03-12 14:04] LABS: Abs Immature Grans 0.02 10^3/uL (0.0-0.06); Absolute Basophil Count 0.07 10^3/uL (0.0-0.2); Absolute Eosinophil Count 0.13 10^3/uL (0.0-0.7); Absolute Lymphocyte Count 1.92 10^3/uL (1.2-3.4); Absolute Monocyte Count 0.46 10^3/uL (0.1-0.8); Absolute Neutrophil Count 3.91 10^3/uL (1.2-6.7); Basophils % 1.1; HCT 43.1 % (36.0-46.0); HGB 14.4 g/dL (11.2-15.7); Immature Grans % 0.3; Lymphocytes % 29.5; MCH 27.3 pg (27.0-33.0); MCHC 33.4 % (32.0-36.0); MCV 81.6 fL (80-95); MPV 9.5 fL (8.0-11.0); Monocytes % 7.1; Platelet Count 279 10^3/uL (130-400); RBC 5.28 10^6/uL (3.93-5.22); RDW 14.4 % (11.7-14.6); RDW-SD 42.6 fL; WBC 6.51 10^3/uL (4.4-10.8)
[2020-03-12 14:55] LABS: ESR 4 mm/hr (0-30)
== END 2020-03-12 13:42 ==
LOC: LBN 13:22
PROVIDERS: PCP Family Medicine; Visit Provider Family Medicine
DX: R51 Headache (principal); I10 Essential (primary) hypertension
CPT/HCPCS: 85652; 85025

== ENCOUNTER 2020-08-22 04:46 | Outpatient (CLI) | payer MEDICARE, SELFPAY ==
--- NOTE | 2020-08-22 06:15 | DI.US_ITS ---
EXAM: US HERNIA CLINICAL HISTORY: left inguinal swelling, c/o hernia,r19.09. TECHNIQUE: Ultrasound was performed using standard protocol. COMPARISON: CT ABD/PELVIS WO W CONTRAST from 01/13/2018 FINDINGS: Sonographic assessment utilizing grayscale and color Doppler imaging was performed and targeted to th e area of clinical concern. There appears to be a fat containing left inguinal hernia. The hernia opening measures 1.2 cm. IMPRESSION: Sonographic findings suggesting a fat containing left inguinal hernia. DATA REPOSITORY:
== END 2020-08-22 05:06 ==
PROVIDERS: PCP Family Medicine; Visit Provider Physician Assistant
DX: R19.09 Other intra-abdominal and pelvic swelling, mass and lump (principal)
CPT/HCPCS: 76857

== ENCOUNTER 2020-09-25 02:46 | Outpatient (CLI) | payer MEDICARE, SELFPAY ==
[2020-09-25 12:42] LABS: HCT 41.1 % (36.0-46.0); HGB 13.8 g/dL (11.2-15.7); MCHC 33.6 % (32.0-36.0); MCV 80.3 fL (80-95); MPV 9.1 fL (8.0-11.0); Platelet Count 270 10^3/uL (130-400); RBC 5.12 10^6/uL (3.93-5.22); WBC 6.88 10^3/uL (4.4-10.8)
[2020-09-25 12:53] LABS: Bilirubin Negative (Negative); Blood Negative (Negative); Clarity Cloudy (Clear); Glucose Negative (Negative); Ketones Negative (Negative); Leukocyte Esterase Moderate (Negative); Nitrite Negative (Negative); Urobilinogen 0.2 EU/dL (Up TO 0.2)
[2020-09-25 12:55] LABS: Iron 101 ug/dL (50-170)
[2020-09-25 13:07] LABS: Bacteria Many HPF (Negative); C & S Indicated? Yes; Casts Negative LPF (Negative); Crystals Negative HPF (Negative); Epithelial Cells Few HPF (Negative); Mucus Negative (Negative); RBC 0-2 HPF (0-2); WBC 20-50 HPF (0-5)
[2020-09-25 13:12] LABS: ALT 17 U/L (14-59); AST 12 U/L (15-37); Albumin 4.1 g/dL (3.4-5.0); Alkaline Phosphatase 55 U/L (46-116); Anion Gap 10.1 mmol/L (3-11); BUN 11 mg/dL (7-18); Bilirubin, Total 0.4 mg/dL (0.2-1.0); CO2 25.9 mmol/L (21.0-32.0); Calcium 9.2 mg/dL (8.5-10.1); Chloride 97 mmol/L (98-107); Estimated GFR 56.18 (mL/min/1.73m2); Ferritin 279 ng/mL (8-252); Glucose 101 mg/dL (74-106); Potassium 4.2 mmol/L (3.5-5.1); Sodium 133 mmol/L (136-145); Total Protein 6.6 g/dL (6.4-8.2)
== END 2020-09-25 02:47 | disposition home or self-care (01) ==
LOC: LOS 02:47
PROVIDERS: PCP Family Medicine; Visit Provider Family Medicine
DX: D50.9 Iron deficiency anemia, unspecified (principal); I10 Essential (primary) hypertension; R35.0 Frequency of micturition
CPT/HCPCS: 36415; 80053; 85027; 87077; 81003; 81015; 82728; 83540; 87086; 87186

== ENCOUNTER 2020-10-13 03:37 | Outpatient (CLI) | payer MEDICARE, SELFPAY ==
[2020-10-13 12:50] LABS: Hemoglobin A1C 5.5 % (<5.7)
[2020-10-13 13:17] LABS: Calculated LDL 137 mg/dL (<100); Cholesterol 205 mg/dL (<200); HDL Cholesterol 58 mg/dL (40-60); Triglyceride 53 mg/dL (<150); Vitamin B12 1693 pg/mL (193-986)
== END 2020-10-13 03:38 | disposition home or self-care (01) ==
LOC: LOS 03:37
PROVIDERS: PCP Family Medicine; Visit Provider Nurse Practitioner Family
DX: E78.5 Hyperlipidemia, unspecified (principal); R73.01 Impaired fasting glucose; E53.8 Deficiency of other specified B group vitamins
CPT/HCPCS: 36415; 80061; 82607; 83036

== ENCOUNTER 2020-10-17 15:34 | Outpatient (REF) | payer MEDICARE, SELFPAY ==
[2020-10-20 12:51] LABS: COVID-19 RT-PCR UVMMC Result Negative (Negative)
== END 2020-10-17 15:35 | disposition home or self-care (01) ==
LOC: LBN 15:34
PROVIDERS: PCP Family Medicine; Visit Provider Student in an Organized Health Care Education/Training Program
DX: Z20.822 Contact with and (suspected) exposure to COVID-19 (principal)
CPT/HCPCS: U0003

== ENCOUNTER 2020-10-29 12:01 | Outpatient (REF) | payer MEDICARE, SELFPAY ==
[2020-10-29 22:00] LABS: Anion Gap 9.4 mmol/L (3-11); BUN 12 mg/dL (7-18); CO2 27.6 mmol/L (21.0-32.0); Calcium 9.7 mg/dL (8.5-10.1); Chloride 96 mmol/L (98-107); Creatine Kinase 87 U/L (26-192); Estimated GFR 56.18 (mL/min/1.73m2); Glucose 98 mg/dL (74-106); Potassium 4.1 mmol/L (3.5-5.1); Sodium 133 mmol/L (136-145)
[2020-10-30 09:35] LABS: ESR 16 mm/hr (<or=30)
[2020-10-31 11:34] LABS: Lyme Ab w Rflx to Lyme Confirm Positive (Negative)
[2020-11-01 00:15] LABS: Anaplasma phagocytophilum Negative (Negative); B. miyamotoi PCR Negative (Negative); Babesia divergens/MO-1 Negative (Negative); Babesia duncani Negative (Negative); Babesia microti Negative (Negative); Ehrlichia chaffeensis Negative (Negative); Ehrlichia ewingii/canis Negative (Negative); Ehrlichia muris eauclairensis Negative (Negative)
[2020-11-02 15:22] LABS: ANA Interpretation Negative (Negative)
[2020-11-05 13:28] LABS: IgG Band(s) p93; IgG Immunoblot Negative (Negative); IgM Band(s) p23; IgM Immunoblot Negative (Negative)
== END 2020-10-29 12:02 | disposition home or self-care (01) ==
LOC: LBN 12:01
PROVIDERS: PCP Family Medicine; Visit Provider Physician Assistant
DX: R53.83 Other fatigue (principal); M79.18 Myalgia, other site; F19.90 Other psychoactive substance use, unspecified, uncomplicated
CPT/HCPCS: 80048; 82550; 85652; 86617; 87798; 86038; 86618

== ENCOUNTER 2020-11-12 14:29 | Outpatient (REF) | payer MEDICARE, SELFPAY | END 2020-11-12 14:30 | disposition home or self-care (01) | LOC: LBN 14:29 | PROVIDERS: PCP Family Medicine; Visit Provider Nurse Practitioner Family | DX: R53.83 Other fatigue (principal); M79.10 Myalgia, unspecified site | CPT/HCPCS: 84443 ==

== ENCOUNTER → 2020-11-24 09:51 | Outpatient (BNVA) | payer MEDICARE, SELFPAY | PROVIDERS: PCP Nurse Practitioner Family; Referring Provider Physician Assistant; Visit Provider Psychiatry & Neurology Neurology | DX: R25.1 Tremor, unspecified (principal); E53.8 Deficiency of other specified B group vitamins; G62.9 Polyneuropathy, unspecified; R42 Dizziness and giddiness | CPT/HCPCS: 99215; G2212 ==

== ENCOUNTER 2021-01-23 10:26 | Emergency (ER) | payer MEDICARE, SELFPAY ==
[2021-01-23 10:29] VITALS: BP 153/94; PULSE 93; TEMP 36.5; O2SAT 99
[2021-01-23] MEDS: LORazepam 1 MG TAB PO (10:45)
--- NOTE | 2021-01-23 10:45 | DI.US_ITS ---
Exam(s) US HERNIA EXAM: US HERNIA CLINICAL HISTORY: left inguinal hernia. TECHNIQUE: Ultrasound was performed using standard protocol. COMPARISON: US US HERNIA from 08/22/2020 FINDINGS: Sonographic assessment utilizing grayscale and color Doppler imaging was performed and targeted to th e area of clinical concern. No definite evidence of a left inguinal hernia. IMPRESSION: DATA REPOSITORY:
[2021-01-23 10:47] LABS: Bilirubin Negative (Negative); Blood Negative (Negative); Clarity Clear (Clear); Glucose Negative (Negative); Ketones Negative (Negative); Leukocyte Esterase Negative (Negative); Nitrite Negative (Negative); Specific Gravity 1.015 (1.005-1.025); Urobilinogen 0.2 EU/dL (Up TO 0.2)
[2021-01-23 10:55] LABS: HCT 42.9 % (36.0-46.0); HGB 14.1 g/dL (11.2-15.7); MCH 26.8 pg (27.0-33.0); MCHC 32.9 % (32.0-36.0); MCV 81.4 fL (80-95); MPV 8.3 fL (8.0-11.0); Platelet Count 277 10^3/uL (130-400); RBC 5.27 10^6/uL (3.93-5.22); RDW 14.6 % (11.7-14.6); WBC 7.59 10^3/uL (4.4-10.8)
--- NOTE | 2021-01-23 11:05 | ED.GENADUL_ITS ---
Discharge Plan Disposition Patient Disposition: HOME Condition: Good Discharge Details Clinical Impression: Direct inguinal hernia of left side Primary Care Provider: Johny Herrera ED Provider: Lisette Pugh Home Meds and New Rx's Prescriptions: No Action lorazepam 0.5 mg tablet 0.5 mg PO BID PRN for anxiety Qty: 60 RF: 3 trazodone 100 mg tablet 100 mg PO QHS PRNRF: 0 amlodipine 5 mg tablet 5 mg PO DAILY Qty: 90 RF: 4 cetirizine 10 mg tablet 10 mg PO DAILY Qty: 90 RF: 4 lisinopril 40 mg tablet 40 mg PO DAILY Qty: 90 RF: 4 hydrochlorothiazide 25 mg tablet 25 mg PO DAILY Qty: 90 RF: 4 montelukast [Singulair] 10 mg tablet 10 mg PO QPM Qty: 90 RF: 4 triamcinolone acetonide 0.1 % cream 1 applic topical DAILY PRN (Reason: dermatitis) Qty: 80 RF: 0 ascorbic acid (vitamin C) [Vitamin C] 500 MG tablet 500 mg PO BID RF: 0 calcium citrate-vitamin D3 1 EACH tablet 1 ea PO DAILY RF: 0 cholecalciferol (vitamin D3) 1,000 UNIT tablet 5,000 unit PO DAILY RF: 0 (DME) syringe (disposable) 3 mL syringe 1 ea IM EVERY 5 DAYS 90 Days Qty: 18 RF: 3 levalbuterol tartrate 45 mcg/actuation HFA aerosol inhaler 2 inh IH Q4H PRN (Reason: shortness of breath or wheezing) Qty: 15 RF: 11 Adult 50 Plus Probiotic 4 billion cell capsule 4,000 mmu cells PO DAILY Qty: 60 RF: 0 ibuprofen 200 mg Tablet 400 mg PO Q6H PRNRF: 0 gabapentin 100 mg Capsule 200 mg PO QAM RF: 0 azelastine 0.05 % drops 1 drp OP BID PRNRF: 0 cyanocobalamin (vitamin B-12) 1,000 mcg/mL solution 1,000 mcg IM DIRECTED RF: 0 gabapentin 300 mg capsule 400 mg PO QHS RF: 0 Discharge Instructions Additional Instructions: No heavy lifting or repetitive motion, try not to engage in activities that cause the hernia to protrude, but hernia does protrude again, you may apply ice or heat, apply pressure until it resolves and stay away from the offending activity Ibuprofen and Tylenol for pain control As listed surgery, call to schedule an appointment to have your hernia repaired Referrals: Edgar Jeff DO [ CONSULTING PHYSICIAN] - Discharge Data Discharge Date/Time-TO BE ENTERED AT DEPARTURE: 01/23/21 12:04 Medical Decision Making No visible inguinal hernia, ultrasound does not show acute pathology per radiology interpretation of my review Diagnostic labs are reassuring including urinalysis Patient is given surgical referral, she is instructed to call tomorrow She is instructed not to lift any heavy items or do repetitive motions, specifically avoid activities that cause her hernia to be symptomatic pt afebrile and otherwise non-toxic Medical Records Medical records reviewed: Yes I reviewed the patient's medical records. HPI General Mode of arrival: ambulatory . Date/Time Provider Initiated Documentation: 01/23/21 10:26 . Limitations to Documentation: no limitations . HPI Narrative: This 60-year-old female was sent over from primary care with left lower abdominal pain. She has a known inguinal hernia. She states that she was raking when the pain began. She denies chest pain, shortness of breath, nausea, vomiting. States the pain is mildly improved at this time. She states she has not had surgical consultation yet. She denies any fever or chills, she denies any urinary symptoms. She denies any trauma to the affected area. Related Data Home Medications Medication Instructions Recorded Confirmed ascorbic acid (vitamin C) [Vitamin 500 mg PO BID 12/28/12 01/23/21 C] calcium citrate-vitamin D3 1 ea PO DAILY 09/20/13 01/23/21 cholecalciferol (vitamin D3) 5,000 unit PO DAILY 06/21/17 01/23/21 lorazepam 0.5 mg tablet 0.5 mg PO BID PRN for anxiety #60 04/22/20 01/23/21 tab-cap syringe (disposable) 3 mL #18 syringe 05/16/20 11/24/20 levalbuterol tartrate 45 2 inh IH Q4H PRN #15 gm 07/08/20 01/23/21 mcg/actuation aerosol inhaler amlodipine 5 mg tablet 5 mg PO DAILY #90 tab 10/02/20 01/23/21 cetirizine 10 mg tablet 10 mg PO DAILY #90 tab 10/02/20 01/23/21 hydrochlorothiazide 25 mg tablet 25 mg PO DAILY #90 tab 10/02/20 01/23/21 lisinopril 40 mg tablet 40 mg PO DAILY #90 tab 10/02/20 01/23/21 montelukast 10 mg tablet 10 mg PO QPM #90 tab 10/02/20 01/23/21 triamcinolone acetonide 0.1 % 1 applic TOPICAL DAILY PRN #80 g 10/02/20 01/23/21 topical cream lactobacillus combination no.9 4 4,000 mmu cells PO DAILY #60 cap 11/03/20 01/23/21 billion cell capsule trazodone 100 mg tablet 100 mg PO QHS PRN 11/24/20 01/23/21 azelastine 1 drp OP BID PRN 01/23/21 01/23/21 cyanocobalamin (vitamin B-12) 1,000 mcg IM DIRECTED 01/23/21 01/23/21 gabapentin 200 mg PO QAM 01/23/21 01/23/21 gabapentin 400 mg PO QHS 01/23/21 01/23/21 ibuprofen 400 mg PO Q6H PRN 01/23/21 01/23/21 Previous Rx's Medication Instructions Recorded lorazepam 0.5 mg tablet 0.5 mg PO BID PRN for anxiety #60 04/22/20 tab-cap syringe (disposable) 3 mL #18 syringe 05/16/20 levalbuterol tartrate 45 2 inh IH Q4H PRN #15 gm 07/08/20 mcg/actuation aerosol inhaler amlodipine 5 mg tablet 5 mg PO DAILY #90 tab 10/02/20 cetirizine 10 mg tablet 10 mg PO DAILY #90 tab 10/02/20 hydrochlorothiazide 25 mg tablet 25 mg PO DAILY #90 tab 10/02/20 lisinopril 40 mg tablet 40 mg PO DAILY #90 tab 10/02/20 montelukast 10 mg tablet 10 mg PO QPM #90 tab 10/02/20 triamcinolone acetonide 0.1 % 1 applic TOPICAL DAILY PRN #80 g 10/02/20 topical cream lactobacillus combination no.9 4 4,000 mmu cells PO DAILY #60 cap 11/03/20 billion cell capsule Allergies Allergy/AdvReac Type Severity Reaction Status Date / Time doxycycline AdvReac Severe ABD Verified 01/26/21 07:58 CRAMPS/ CONSTIPATION propranolol AdvReac Intermediate DEPRESSION Verified 01/26/21 07:58 albuterol AdvReac Mild tremors Verified 01/26/21 07:58 meloxicam AdvReac Mild fluid Verified 01/26/21 07:58 retention erythromycin base AdvReac Unknown NAUSEA/VOMI Verified 01/26/21 07:58 TING General Stated Complaint: Abd Prob JOLENE: 3 Review of Systems Narrative: Review of systems obtained x7 aside from where indicated in HPI [facility] Medical History Anxiety (03/08/18) Depression (05/31/17) Essential hypertension (09/20/13) Fatigue Hernia, inguinal, left 08/22/20 US - 1.2cm, fat containing Hyperlipidemia Insomnia Low back pain (01/31/15) Mild intermittent asthma Osteoarthritis (01/03/14) mid back pain (DJD on chest CT) Rosacea, unspecified (07/15/15) Seasonal allergies Varicose veins of lower extremity left leg Vitamin B 12 deficiency (07/19/14) B12 injections q 5 days per pt report. Surgical History Ankle repair (left) Appendectomy age 13 Arthroplasty [facility] [place] 10/11/17; RIGHT BASAL JOINT WITH PINNING Biopsy of breast (~2005) Frozen shoulder Hand Surgery 11/01/16 Tonsillectomy Trigger Finger release (~07/2009) Thumb Family History Mother , 70 ALS (amyotrophic lateral sclerosis) Father Essential hypertension Prostate cancer Stroke Skin cancer Sister Diabetes Essential hypertension Depression Heart disease Brother Alcohol abuse Depression Essential hypertension Maternal Grandfather No problems noted. Paternal Grandfather , 89 Heart disease Stroke Maternal Grandmother , approx 60 Cancer Paternal Grandmother , 59 Vaginal cancer Heart disease Son Heart disease Daughter Asthma Social History Smoking/Tobacco Use Status: Current every day Tobacco Type: cigarettes Smoking packs per day: 0.5 Smoking cigarettes per day: 10.0 Tobacco: How many years used: 30 Quit status: considering quitting Second Hand Exposure: Yes Smoking risk assessment performed?: Yes Alcohol Intake: never Drug use: Never Substance use type: does not use Caregiver/Support person: No Household members: none Housing: house Number of Children: 2 Communication Needs: Hard of Hearing and Corrective Lenses Do you need help understanding health information?: Rarely Pets and animals: Yes Pets and animals: cat(s) Sexually active: No Do you think of yourself as: straight/heterosexual Current gender identity: female What is your relationship status?: How often do you talk on the phone with friends or family?: three or more times per week How often do you get together with friends or relatives?: three or more times per week How often do you attend rastafarian or rastafarian services?: decline to answer Do you belong to any clubs or organized social groups?: no Panel score (0-1 are the most socially isolated patients): 1 What type of physical activity do you participate in: decline to answer Duration: decline to answer Frequency: decline to answer Jessica/Holiness: None Special jessica needs: No Seatbelt use: sometimes Drive intox or ride w/intox driver medic: No Do you feel safe at home: Yes Do you feel safe in your relationship?: Yes Female Reproductive History Menstrual Menopause type: natural History History 2 Para 2 Hx # Term Pregnancies Multiple births Hx # Pregnancies Ectopic pregnancies AB induced Hx Number of Living Children 2 AB spontaneous Exam Const General: cooperative and no acute distress Chest Chest: normal inspection of the chest Resp Effort & Inspection: normal respiratory effort Auscultation: clear to auscultation bilaterally Cardio Rate: regular rate Rhythm: regular rhythm GI Inspection: normal to inspection Other: Nontender abdominal exam, no CVA tenderness, no abdominal bruit or pulsatile mass Other: No palpable inguinal hernia, left small lymph node noted inguinal Skin General skin exam: no rashes or lesions noted Neuro General: patient alert and patient oriented x3 Course Vital Signs Vital signs: Vital Signs Temperature 36.5 C 01/23/21 10:29 Pulse 93 H 01/23/21 10:29 Blood Pressure 153/94 H 01/23/21 10:29 Pulse Oximetry 99 01/23/21 10:29 Temperature 36.5 C 01/23/21 10:29 Temperature Source Temporal Artery Scan 01/23/21 10:29 Pulse 93 H 01/23/21 10:29 Respiratory Effort Non-Labored 01/23/21 10:39 Blood Pressure 153/94 H 01/23/21 10:29 Blood Pressure Position Sitting 01/23/21 10:29 Pulse Oximetry 99 01/23/21 10:29 Oxygen Delivery Method Room Air 01/23/21 10:29 Oxygen Flow Rate 0 01/23/21 10:29 Pain Level 5 01/23/21 10:29 Lab/Test Results Lab/Test Results: Laboratory Tests Range/Units 01/23/21 01/23/21 10:32 10:47 WBC (4.4-10.8) 10^3/uL 7.59 RBC (3.93-5.22) 10^6/uL 5.27 H Hgb (11.2-15.7) g/dL 14.1 Hct (36.0-46.0) % 42.9 MCV (80-95) fL 81.4 MCH (27.0-33.0) pg 26.8 L MCHC (32.0-36.0) % 32.9 RDW (11.7-14.6) % 14.6 Plt Count (130-400) 10^3/uL 277 MPV (8.0-11.0) fL 8.3 Urine Color (Yellow) Yellow Urine Clarity (Clear) Clear Urine pH (5-8) 7.0 Ur Specific [place] (1.005-1.025) 1.015 Urine Protein (Negative) mg/dL Negative Urine Ketones (Negative) mg/dL Negative Urine Blood (Negative) Negative Urine Nitrite (Negative) Negative Urine Bilirubin (Negative) Negative Urine Urobilinogen (Up TO 0.2) EU/dL 0.2 Ur Leukocyte Esterase (Negative) Negative Urine Glucose (Negative) mg/dL Negative
[2021-01-23 11:08] LABS: ALT 19 U/L (14-59); AST 13 U/L (15-37); Albumin 4.3 g/dL (3.4-5.0); Alkaline Phosphatase 69 U/L (46-116); Anion Gap 7.2 mmol/L (3-11); BUN 10 mg/dL (7-18); Bilirubin, Total 0.5 mg/dL (0.2-1.0); CO2 29.8 mmol/L (21.0-32.0); Calcium 9.4 mg/dL (8.5-10.1); Chloride 99 mmol/L (98-107); Estimated GFR 56.18 (mL/min/1.73m2); Glucose 112 mg/dL (74-106); Potassium 3.7 mmol/L (3.5-5.1); Sodium 136 mmol/L (136-145); Total Protein 7.6 g/dL (6.4-8.2)
--- NOTE | 2021-01-23 12:05 | NUR.NOTE ---
patient advised before she was given ativan that she would need to call for a ride. upon d/c, patient refused to call for a ride. advised her that this would be put into her visit note.
== END 2021-01-23 12:04 | disposition home or self-care (01) ==
PROVIDERS: Emergency Medicine; Emergency Provider Physician Assistant; PCP Nurse Practitioner Family
DX: K40.90 Unilateral inguinal hernia, without obstruction or gangrene, not specified as recurrent (principal)
CPT/HCPCS: 36415; 76857; 80053; 85027; 99284; 81003; 99283

== ENCOUNTER → 2021-01-26 07:54 | Outpatient (BNVA) | payer MEDICARE, SELFPAY | PROVIDERS: PCP Nurse Practitioner Family; Referring Provider Nurse Practitioner Family; Visit Provider Physical Therapy Assistant | DX: K40.90 Unilateral inguinal hernia, without obstruction or gangrene, not specified as recurrent (principal); I10 Essential (primary) hypertension | CPT/HCPCS: 99214 ==

== ENCOUNTER 2021-01-26 10:11 | Outpatient (CLI) | payer MEDICARE, SELFPAY ==
[2021-01-26 11:21] LABS: Source Nasal/Nares
[2021-01-26 15:19] LABS: COVID-19 PCR Negative (Negative)
== END 2021-01-26 10:12 | disposition home or self-care (01) ==
LOC: LBO 10:12
PROVIDERS: PCP Nurse Practitioner Family; Visit Provider Surgery
DX: Z20.822 Contact with and (suspected) exposure to COVID-19 (principal); Z01.818 Encounter for other preprocedural examination; G25.2 Other specified forms of tremor; E53.8 Deficiency of other specified B group vitamins; G63 Polyneuropathy in diseases classified elsewhere
CPT/HCPCS: 87635; 99214

== ENCOUNTER 2021-01-27 09:48 | Day surgery (SDC) | payer MEDICARE, SELFPAY ==
[2021-01-27] VITALS (7 sets, daily range): BP systolic 97–147; BP diastolic 50–84; PULSE 60–74; RESP 13–16; TEMP 35.9–37; O2SAT 96–100; BMI 20.7
[2021-01-27] MEDS: Lactated Ringers 1,000 ML 80 ML IV (10:22)
--- NOTE | 2021-01-27 10:48 | W.ANESPRE ---
General Info Date of Service Date Performed: 01/27/21 Height: 5 ft 3 in Weight: 53.07 kg Body Mass Index (BMI): 20.7 Surgical Procedure: Operation Date: 01/27/21 13:10 Proposed Procedures Side Surgeon p Herniorrhaphy Inguinal Left Jennifer Hoffman, Meds Allergies and Home Medications Allergies Allergy/AdvReac Type Severity Reaction Status Date / Time doxycycline AdvReac Severe ABD Verified 01/27/21 10:03 CRAMPS/ CONSTIPATION propranolol AdvReac Intermediate DEPRESSION Verified 01/27/21 10:03 albuterol AdvReac Mild tremors Verified 01/27/21 10:03 meloxicam AdvReac Mild fluid Verified 01/27/21 10:03 retention erythromycin base AdvReac Unknown NAUSEA/VOMI Verified 01/27/21 10:03 TING Home Medication Medication Instructions Recorded ascorbic acid (vitamin C) [Vitamin 500 mg PO BID 12/28/12 C] calcium citrate-vitamin D3 1 ea PO DAILY 09/20/13 cholecalciferol (vitamin D3) 5,000 unit PO DAILY 06/21/17 lorazepam 0.5 mg tablet 0.5 mg PO BID PRN for anxiety #60 04/22/20 tab-cap syringe (disposable) 3 mL #18 syringe 05/16/20 levalbuterol tartrate 45 2 inh IH Q4H PRN #15 gm 07/08/20 mcg/actuation aerosol inhaler cetirizine 10 mg tablet 10 mg PO DAILY #90 tab 10/02/20 hydrochlorothiazide 25 mg tablet 25 mg PO DAILY #90 tab 10/02/20 lisinopril 40 mg tablet 40 mg PO DAILY #90 tab 10/02/20 montelukast 10 mg tablet 10 mg PO QPM #90 tab 10/02/20 triamcinolone acetonide 0.1 % 1 applic TOPICAL DAILY PRN #80 g 10/02/20 topical cream lactobacillus combination no.9 4 4,000 mmu cells PO DAILY #60 cap 11/03/20 billion cell capsule trazodone 100 mg tablet 100 mg PO QHS PRN 11/24/20 azelastine 1 drp OP BID PRN 01/23/21 cyanocobalamin (vitamin B-12) 1,000 mcg IM DIRECTED 01/23/21 ibuprofen 400 mg PO Q6H PRN 01/23/21 amlodipine 5 mg PO HS 01/26/21 gabapentin 300 mg capsule See Rx Instructions PO BID #270 cap 01/26/21 Current Visit Medications: Current Medications Generic Name Dose Route Start Last Admin Trade Name Klaudia PRN Reason Stop Dose Admin Ringer's Solution 1,000 mls @ 80 mls/hr 01/27/21 06:00 01/27/21 10:22 IV 02/25/21 23:59 80 mls/hr INFUSION FRACISCO Administration Cefazolin Sodium/Dextrose 2 gm in 50 mls @ 100 mls/hr 01/27/21 06:00 Ancef Duplex IVPB 02/25/21 23:59 PREOP FRACISCO IV Miscellaneous Supplies 1 each 01/27/21 06:00 Iv Access IV 02/25/21 23:59 DIRECTED FRACISCO Sodium Chloride 0 ml 01/27/21 06:00 Normal Saline Flush 10 Ml Syr IV 02/25/21 23:59 PRN PRN Sodium Chloride 0 ml 01/27/21 06:00 Normal Saline 10 Ml Vial IJ 02/25/21 23:59 DIRECTED PRN Sterile Water 0 ml 01/27/21 06:00 Water,Injection,Sterile 10 Ml Vial IJ 02/25/21 23:59 DIRECTED PRN PFSH Active Problems Active Problems: Problem Status Onset Code Abnormal involuntary movements 02/27/13 R25.9 Abnormal involuntary movement 02/27/13 R25.9 Abnormal weight loss 01/03/18 R63.4 Acute sinusitis J01.90 Allergic rhinitis 05/31/17 J30.9 Arthritis 08/31/12 M19.90 Idiopathic peripheral neuropathy 11/20/13 G60.9 Solitary pulmonary nodule 05/29/13 R91.1 Seizure 07/19/14 R56.9 Tobacco dependence 05/31/17 F17.200 Tremor 10/07/15 R25.1 Family history of coronary artery disease Z82.49 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 Status post tonsillectomy Z90.89 Status post breast biopsy Z98.890 Status post appendectomy Z90.49 Solitary pulmonary nodule 05/29/13 R91.1 History of orthopedic surgery Z98.890 Convulsions 07/19/14 R56.9 Adhesive capsulitis of shoulder M75.00 Abdominal pain 06/08/13 R10.9 Allergic conjunctivitis H10.10 Neck pain M54.2 Peripheral neuropathy G62.9 Direct inguinal hernia of left side K40.90 Anxiety 03/08/18 F41.9 Depression 05/31/17 F32.9 Fatigue R53.83 Essential hypertension 09/20/13 I10 Rosacea, unspecified 07/15/15 L71.9 Osteoarthritis 01/03/14 M19.90 Low back pain 01/31/15 M54.5 Seasonal allergies J30.2 Varicose veins of lower extremity I83.90 Vitamin B 12 deficiency 07/19/14 E53.8 Insomnia G47.00 Mild intermittent asthma J45.20 Hyperlipidemia E78.5 Hernia, inguinal, left K40.90 Medical History Medical History (Updated 01/27/21 @ 11:16 by Gustavo Winters CRNA) Anxiety (03/08/18) Depression (05/31/17) Essential hypertension (09/20/13) Fatigue Hernia, inguinal, left 08/22/20 US - 1.2cm, fat containing History of seizure Per pt. states this was a result of her b12 defiency and since adding b12 has not had a seixure in 6 years Hyperlipidemia Insomnia Low back pain (01/31/15) Mild intermittent asthma Osteoarthritis (01/03/14) mid back pain (DJD on chest CT) Rosacea, unspecified (07/15/15) Seasonal allergies Varicose veins of lower extremity left leg Vitamin B 12 deficiency (07/19/14) B12 injections q 5 days per pt report. Surgical History Surgical History Ankle repair (left) Appendectomy age 13 [place] [facility] [place]; RIGHT BASAL JOINT WITH PINNING Biopsy of breast (~2005) Frozen shoulder Hand Surgery 11/01/16 Tonsillectomy Trigger Finger release (~07/2009) Thumb Tobacco Smoking/Tobacco Use Status: Current every day Tobacco Type: cigarettes Smoking packs per day: 0.5 Tobacco: How many years used: 30 Passive smoking exposure: Yes Quit Status: considering quitting Second hand exposure: Yes Alcohol Alcohol Intake: never Substance Use Substance use: Never Substance use type: does not use Prental History History 2 Para 2 Hx # Term Pregnancies Multiple births Hx # Pregnancies Ectopic pregnancies AB induced Hx Number of Living Children 2 AB spontaneous Vital Signs and Lab Results Vital Signs Most Recent Vital Signs in EMR: Most Recent Vital Signs Temp Pulse Resp BP Pulse Ox 37.0 C 74 16 138/75 96 01/27/21 09:58 01/27/21 09:58 01/27/21 09:58 01/27/21 09:58 01/27/21 09:58 Lab Results Blood Type / Crossmatch: No Data to Display Complete Blood Count: White Blood Count 7.59 10^3/uL (4.4-10.8) 01/23/21 10:47 01/23/21 Red Blood Count 5.27 10^6/uL (3.93-5.22) H 01/23/21 10:47 01/23/21 Hemoglobin 14.1 g/dL (11.2-15.7) 01/23/21 10:47 01/23/21 Hematocrit 42.9 % (36.0-46.0) 01/23/21 10:47 01/23/21 Platelet Count 277 10^3/uL (130-400) 01/23/21 10:47 01/23/21 Complete Metabolic Panel: Sodium Level 136 mmol/L (136-145) 01/23/21 10:47 01/23/21 Potassium Level 3.7 mmol/L (3.5-5.1) 01/23/21 10:47 01/23/21 Chloride Level 99 mmol/L (98-107) 01/23/21 10:47 01/23/21 Carbon Dioxide Level 29.8 mmol/L (21.0-32.0) 01/23/21 10:47 01/23/21 Blood Urea Nitrogen 10 mg/dL (7-18) 01/23/21 10:47 01/23/21 Creatinine 1.0 mg/dL (0.55-1.02) 01/23/21 10:47 01/23/21 Calcium Level 9.4 mg/dL (8.5-10.1) 01/23/21 10:47 01/23/21 Albumin 4.3 g/dL (3.4-5.0) 01/23/21 10:47 01/23/21 Glucose Level 112 mg/dL (74-106) H 01/23/21 10:47 01/23/21 Liver Function Panel: Alanine Aminotransferase (ALT/SGPT) 19 U/L (14-59) 01/23/21 10:47 01/23/21 Aspartate Amino Transf (AST/SGOT) 13 U/L (15-37) L 01/23/21 10:47 01/23/21 Coagulation Panel: No Data to Display Cardiac Panel: No Data to Display Arterial Blood Gas: No Data to Display Venous Blood Gas: No Data to Display Pancreas Panel: No Data to Display Thyroid Panel: No Data to Display Infectious Disease: Coronavirus (COVID-19)(PCR) Negative (Negative) 01/26/21 11:10 01/26/21 Coronavirus 2019 Source Nasal/nares 01/26/21 11:10 01/26/21 Blood Cultures: No Data to Display Toxicology Panel: No Data to Display Imaging and Studies Imaging and Studies Echocardiogram Summary: 03/21/19: [facility] [place] Stress Echo: Normal study. EF 65%, Trace MR/TR. Normal PA pressures. Anesthesia Assessment and Plan Anesthesia History Personal History: PONV Family History: No Family History of Anesthesia Complications Exercise Tolerance Exercise Tolerance: Metabolic Equivalents>4 Pertinent Negatives Pertinent Negatives: No Symptoms of GERD Cardiac & Pulmonary Exam Cardiac Exam: Normal S1/S2 Heart Sounds Pulmonary Exam: Clear Bilateral Breath Sounds Airway Exam Known Difficult Airway: No Mallampati Class: 2 Mouth Opening: Normal (> 3cm) Thyromental Distance: Greater than 3 cm Neck Range of Motion: Full ROM Neck Circumference: Normal Teeth Condition: Removable Dentures/Plates Upper (Upper denture glued in place.) ASA Classification ASA Score: ASA 2 Emergency Case?: No NPO Status NPO Status: NPO Clears >2 hours, Solids >8 hours Anesthesia Plan Resuscitation Status: Full Code Anesthesia Technique: General Anesthesia Airway Planned: LMA Pain Management: Surgeon and patient request nerve block Monitors Used: Standard Monitors
[2021-01-27] MEDS: ceFAZolin 2 GM/50 ML BAG IVPB (13:03)
--- NOTE | 2021-01-27 13:53 | W.ANESNERVE ---
Nerve Block Single Injection Procedure Date and Time Date Performed: 01/27/21 Procedure Start: 13:15 Location Where Procedure Performed Procedure Location: Operating Room Procedure Stop: 13:22 Reason Performed: Postoperative Analgesia Requesting Provider: Jennifer Hoffman Timeout Performed Timeout Performed: Yes Monitoring Used ECG, Blood Pressure, SpO2, ETCO2 and See EMR for corresponding vital signs Sterility Sterility: Hand Hygiene, Surgical Cap, Surgical Mask, Sterile Gloves, Eye Protection and Chlorhexidine Sedation Given During Procedure Sedation Given (Indicate Dose Given): No Sedation given Patient Mental Status Patient Mental Status: Performed under general anesthesia Nerve Block 1st Nerve Block: Laterality: Left Block Type: TAP Unilateral Needle / Catheter Used: 100mm SonoPlex II Local Anesthetic Bolus (Indicate Dose Given): Injected in 3-5ml increments after negative blood aspiration, Bupivacaine 0.25% Dose:: 20ml and Exparel Dose:: 10ml Additives (Indicate Dose Given): None Ultrasound: Sterile probe cover and gel used Ultrasound Image Saved?: Yes Nerve Stimulator: Not Used Paresthesia: None Procedure Tolerated: No Complications and Patient tolerated well Procedure Outcome: Successful Performed By: Swati Joyce Supervised By: Gustavo Winters
--- NOTE | 2021-01-27 14:14 | ROE_ITS ---
Date of service: 01/27/21 Time of Service: 14:14 Operative Note Operative Note DATE OF PROCEDURE: 01/27/21 PRE-OP DIAGNOSIS: left inguinia hernia POST-OP DIAGNOSIS: same PROCEDURE: open inguinal hernia repair w/ mesh - direct defect SURGEON: Jennifer Santoyo CLINICAL MARKETING MANAGER: Corine Kee ANESTHESIA TYPE: Local By Surgeon, General:No Airway and Primary Nerve Block Refer to Anesthesia Record ESTIMATED BLOOD LOSS: 5 Patient was transported to: PACU Patient's condition: stable Indications: see RN notes Procedure Description: INDICATIONS: The pt is here today for surgery regarding symptomatic left inguinal hernia that has failed outpatient conservative medical management and he is here today for repair. Informed consent was obtained, explaining risks and benefits of the procedure including but not limited to bleeding, infection, pneumonia, blood clots, chronic pain, chronic numbness, recurrence of hernia, reaction to Mesh necessitating removal, and other unforetold complications, and complications of anesthesia-which were addressed by the MORTGAGE ANALYST. The patient is marked in preOp prior to the procedure DESCRIPTION OF PROCEDURE: The pt is then brought to the operative room suite. Anesthesia was administered per the Department of Anesthesia. A nerve block was performed by anesthesia under US guidance. The patient was prepped and draped in the usual sterile fashion using ChloraPrep scrub solution. Pause for the cause was done. He did receive preop IV antibiotics, and 30 mL of .25% Marcaine w/ epinephrine was used for local anesthetization. A #12 blade was used to make an incision over the external ring. Electrocautery used to provide hemostasis and dissect down to the fascia. The. External Bleich fascia is intact and is open at the ring and carried superiorly lateral direction. The nerve was not identified. Electro-cautery is used to provide hemostasis. There was no hernia sac protruding through the ring. The floor does appear to be weak. This area is investigated. It is right near the femoral vessels so I did not invert and score the area. I did not place a plug through this defect. There does not appear to be a femoral hernia. Please see RN notes from Lot number of the Bard mesh patch/plug. The patch was then placed onto the floor, and using 2-0 Vicryl, sewn into the pubic tubercle and the shelving portions of the inguinal ligament, under the external oblique. in the standard Lichenstein fashion. The wound was copiously irrigated. There was no bleeding noted. All structures are returned to normal anatomical position. The nerve is not sewn into the mesh, nor caught up in any sutures. The external oblique is re-approximated using 2-0 vicryl in a running fashion. Deep tissue was approximated with 3-0 Vicryl in a running fashion, and skin was approximated with 4-0 Monocryl in a running subcuticular fashion. Skin glue and sterile dressings are applied. The patient tolerated the procedure without complications to recovery in stable condition. JENNIFER SANTOYO, DO
--- NOTE | 2021-01-27 14:17 | W.PM.DSUDISC ---
Discharge Plan Disposition Patient Disposition: HOME Condition: Good Discharge Details Reason For Visit: (L) INGUINAL HERNIA Attending Provider: Jennifer Hoffman Primary Care Provider: Johny Herrera Home Meds and New Rx's Prescriptions: No Action lorazepam 0.5 mg tablet 0.5 mg PO BID PRN for anxiety Qty: 60 RF: 3 trazodone 100 mg tablet 100 mg PO QHS PRNRF: 0 cetirizine 10 mg tablet 10 mg PO DAILY Qty: 90 RF: 4 lisinopril 40 mg tablet 40 mg PO DAILY Qty: 90 RF: 4 hydrochlorothiazide 25 mg tablet 25 mg PO DAILY Qty: 90 RF: 4 montelukast [Singulair] 10 mg tablet 10 mg PO QPM Qty: 90 RF: 4 triamcinolone acetonide 0.1 % cream 1 applic topical DAILY PRN (Reason: dermatitis) Qty: 80 RF: 0 gabapentin 300 mg capsule See Rx Instructions PO BID Qty: 270 RF: 3 ascorbic acid (vitamin C) [Vitamin C] 500 MG tablet 500 mg PO BID RF: 0 calcium citrate-vitamin D3 1 EACH tablet 1 ea PO DAILY RF: 0 cholecalciferol (vitamin D3) 1,000 UNIT tablet 5,000 unit PO DAILY RF: 0 (DME) syringe (disposable) 3 mL syringe 1 ea IM EVERY 5 DAYS 90 Days Qty: 18 RF: 3 levalbuterol tartrate 45 mcg/actuation HFA aerosol inhaler 2 inh IH Q4H PRN (Reason: shortness of breath or wheezing) Qty: 15 RF: 11 Adult 50 Plus Probiotic 4 billion cell capsule 4,000 mmu cells PO DAILY Qty: 60 RF: 0 ibuprofen 200 mg Tablet 400 mg PO Q6H PRNRF: 0 azelastine 0.05 % drops 1 drp OP BID PRNRF: 0 cyanocobalamin (vitamin B-12) 1,000 mcg/mL solution 1,000 mcg IM DIRECTED RF: 0 amlodipine 5 mg tablet 5 mg PO HS RF: 0 Discharge Instructions Additional Instructions: Dr. Hoffman HERNIA REPAIR ? POSTOPERATIVE INSTRUCTIONS Patients who have this type of surgery can usually be expected to return to work within two weeks and have minimal amounts of discomfort. ? ACTIVITY: The day of surgery should be spent resting. However, you can be up for short periods of time, I.E., going to the bathroom or kitchen. Avoid lifting or straining. On the day following surgery, you can be up and about as desired. ? LIFTING: Restrict your lifting to no more than five (5) pounds for the first week following surgery. For the second week after surgery, don?t lift more than ten pounds. We will decide when you are done with restrictions and when you can return to work, at your follow-up appointment. No sexual activity for two weeks. ? DIET: There are no dietary restrictions following surgery. However, you may want to start with small amounts of liquids to avoid nausea the day of surgery. ? INCISION CARE: You will notice purple skin glue closing the incision. Do not peel this off- it will wear off on its own. After 24 hours you may shower. The dressing may be replaced for comfort, but is not necessary. An ice bag may be applied to the incision for 72 hours following surgery. ? SIGNS OF INFECTION: It is not unusual to have some black and blue discoloration of the skin around the incision, but also scrotum and penis. It will slowly disappear. If you have any increased redness, drainage, fever (above 100 degrees), please contact your doctor for an examination. ? DISCOMFORT: You may expect to have some mild discomfort at the incision sight. If severe pain develops you should contact your doctor for further instructions. ? URINATION: Patients who have surgery occasionally have problems urinating. If you experience problems and are not able to urinate within 6 hours following your surgery, please call your doctor immediately or go to your nearest Emergency Room for evaluation. ? DRIVING: NO driving for three (3) days after surgery, or if you are still taking narcotic pain medication. ? MEDICATIONS: Alternate Tylenol 1000mg by mouth every 8 hours and Ibuprofen 600mg every 6 hours. Make sure you take ibuprofen with food and not on an empty stomach. Take the Tylenol and ibuprofen continuously for the first 72hrs- not just when you have pain. Use the tramadol for breakthrough pain. Use ICE! Twenty minutes on, and then off, continuously for the first 72hours. If you are taking narcotic pain medication, follow the instructions on the label and do not drive. Pain medications can make you very constipated. Make sure you are moving your bowels daily. If not, take Miralax, milk of magnesia or magnesium citrate. Anesthesia makes you very constipated. Take a dose of milk of magnesia the morning after surgery. ? REPORT: Unusual swelling, severe pain, unresolved nausea, signs of infection, or difficulty in urination to your surgeon. Follow up in clinic with Dr. Hoffman in 1-2 weeks. [phone] Activity:: see above Remove Dressings/Wound Care:: 24 hours Shower/Bathe:: 24 hours Diet:: small light meals x 24 hrs Discharge Orders Discharge Orders: Discharge Order (Routine); Ordered 01/27/21 Ordered By: Jennifer Hoffman DS: Diagnosis Discharge Diagnosis (1) Tobacco dependence: Status: Acute (2) Hernia, inguinal, left: Status: Acute (3) Hyperlipidemia: Status: Chronic
--- NOTE | 2021-01-27 14:52 | W.ANESPOSTOP ---
Postoperative Evaluation Date, Time and Location Date Performed: 01/27/21 Time Performed: 14:52 Patient Location: PACU Vital Signs Most Recent Imported Vital Signs: Most Recent Vital Signs Temp Pulse Resp BP Pulse Ox 36.2 C L 65 14 137/83 99 01/27/21 14:33 01/27/21 14:33 01/27/21 14:33 01/27/21 14:33 01/27/21 14:33 Pain Score Most Recent Pain Score: Most Recent Pain Score Pain Level 0 01/27/21 14:33 Assessment Mental Status: Awake (Alert & Oriented to Patient Baseline) Airway and Respiratory Function: Patent airway with normal (patient baseline) respiratory exam Cardiovascular Function: Hemodynamically Stable Hydration Status: Adequately Hydrated Nausea & Vomiting: No Nausea or Vomiting Pain: Pt. Denies Any Pain Peripheral Nerve Block: Regional nerve block not resolved at time of post operative discharge
== END 2021-01-27 16:00 | disposition home or self-care (01) ==
PROVIDERS: PCP Nurse Practitioner Family; Visit Provider Surgery
PROC: (CPT 49505; principal; 2021-01-27 13:00)
DX: K40.90 Unilateral inguinal hernia, without obstruction or gangrene, not specified as recurrent (principal); G89.18 Other acute postprocedural pain; G40.909 Epilepsy, unspecified, not intractable, without status epilepticus; J45.20 Mild intermittent asthma, uncomplicated; I10 Essential (primary) hypertension
CPT/HCPCS: 49505; 76942; C1781; J0690; J1100; J2001; J2250; J2405; J2704

== ENCOUNTER 2021-01-30 18:59 | Outpatient (REF) | payer MEDICARE, SELFPAY | END 2021-01-30 19:00 | disposition home or self-care (01) | LOC: NCHCN 18:59 | PROVIDERS: PCP Nurse Practitioner Family; Visit Provider Physician Assistant | DX: N39.0 Urinary tract infection, site not specified (principal) | CPT/HCPCS: 87077; 87086; 87186 ==

== ENCOUNTER → 2021-02-12 10:24 | Outpatient (BNVA) | payer MEDICARE, SELFPAY | PROVIDERS: PCP Nurse Practitioner Family; Referring Provider Nurse Practitioner Family; Visit Provider Surgery | DX: Z48.815 Encounter for surgical aftercare following surgery on the digestive system (principal); K40.90 Unilateral inguinal hernia, without obstruction or gangrene, not specified as recurrent ==

== ENCOUNTER 2021-02-26 18:41 | Outpatient (REF) | payer MEDICARE, SELFPAY | END 2021-02-26 18:42 | disposition home or self-care (01) | LOC: NCHCN 18:41 | PROVIDERS: PCP Nurse Practitioner Family; Visit Provider Nurse Practitioner Family | DX: N39.0 Urinary tract infection, site not specified (principal); R82.79 Other abnormal findings on microbiological examination of urine | CPT/HCPCS: 87086 ==

== ENCOUNTER 2021-02-27 14:07 | Emergency (ER) | payer MEDICARE, SELFPAY ==
[2021-02-27] VITALS (66 sets, daily range): BP systolic 112–150; BP diastolic 57–83; PULSE 81–106; RESP 8–30; TEMP 37.4–38.8; O2SAT 96–98
[2021-02-27 15:12] LABS: Absolute Lymphocyte Count 0.54 10^3/uL (1.2-3.4); Absolute Monocyte Count 0.46 10^3/uL (0.1-0.8); Basophils % 0.2; Eosinophils % 1.2; HCT 36.9 % (36.0-46.0); HGB 12.8 g/dL (11.2-15.7); Immature Grans % 0.6; Lymphocytes % 3.3; MCH 27.5 pg (27.0-33.0); MCHC 34.7 % (32.0-36.0); MCV 79.4 fL (80-95); MPV 8.5 fL (8.0-11.0); Monocytes % 2.8; Neutrophils % 91.9; Nucleated RBC 0 %; Platelet Count 221 10^3/uL (130-400); RBC 4.65 10^6/uL (3.93-5.22); RDW-SD 40.3 fL; WBC 16.25 10^3/uL (4.4-10.8)
[2021-02-27 15:13] LABS: Absolute Basophil Count 0.03 10^3/uL (0.0-0.2); Absolute Neutrophil Count 14.93 10^3/uL (1.2-6.7)
[2021-02-27 15:14] LABS: Lactate 2.3 mmol/L (0.6-1.4)
--- NOTE | 2021-02-27 15:15 | DI.CT_ITS ---
Exam(s) CT ABDOMEN PELVIS W EXAM: CT ABDOMEN PELVIS W CLINICAL HISTORY: uti, flank pain, elevated wbc and lacate. TECHNIQUE: Imaging Protocol: Axial computed tomography images with coronal and sagittal reformatted images were created and reviewed CONTRAST MATERIAL: Intravenous: Omnipaque 100cc Oral: None COMPARISON: CT ABD/PELVIS WO W CONTRAST from 01/13/2018 FINDINGS: VISUALIZED LUNG BASES: No nodules nor pleural effusions evident. ABDOMEN: There is no ascites. LIVER: There is a small 4 millimeter cyst in the liver again noted. No other focal hepatic findings and no dilatation of intrahepatic ducts. GALLBLADDER/BILIARY: There are extremely subtle small densities within the gallbladder which may be s mall calculi. Ultrasound recommended. Gallbladder wall is not edematous. No pericholecystic fluid. CBD is not dilated. PANCREAS: No pancreatic mass seen. Pancreatic duct size is upper normal. Calcifications in the panc reas are probably within the calcified splenic artery. SPLEEN: Spleen is not enlarged. No obvious intrasplenic lesions. Splenic and portal veins are paten t. ADRENALS: Slight thickening of the left adrenal gland again noted. KIDNEYS:There is mild streaking in bowel in both kidneys, more so than previous. However, there is n o abnormal enhancement pattern within the actual kidneys to suggest obvious pyelonephritis. No cysts or masses. No calculi nor hydronephrosis. No hydroureter. No calculi within the nondistended urin brando bladder.. ABDOMINAL AORTA: Heavily calcified but not enlarged. There is no calcification in the nondilated com mon iliac arteries. LYMPH NODES:There is no retroperitineal nor paraaortic adenopathy. ABDOMINAL WALL: No evidence of significant anterior abdominal wall hernia. GI: There are multiple fluid-filled upper normal diameter small bowel loops in the pelvis. Wall thic kness of these bowel loops is upper normal. There is no ascites. There is no obvious distinct colit is pattern. PELVIS: GI: Appendix is difficult to locate. No obvious acute appendicitis.No evidence of sigmoid diverticul itis. LYMPH NODES: There is no intrapelvic nor inguinal adenopathy. REPRODUCTIVE: Uterus size is age-appropriate. No ovarian masses identified. However, there are dila ellie veins in both adnexal regions and these drain into prominent gonadal veins which themselves drain into the left renal vein and IVC. These veins are nonthrombosed. URINARY BLADDER: No calculi nor obvious masses evident OSSEOUS: No significant osseous lesions. Chronic degenerative disc disease L5-S1 noted. IMPRESSION: 1. Compared to the prior CT scan of January 2018 there is some mild streaking around both kidneys, possi sarbjit significant. However, there are no calculi nor hydronephrosis nor hydroureter. No cysts nor jose d id lesions in the kidneys. No calculi. No renal carbuncle. 2. There are dilated veins in both sides of the pelvis again noted which drain into prominent gonadal veins bilaterally. This has further increased when compared to 2018. These dilated gonadal veins d rain on the left side into the left renal vein and on the right side into the IVC. Consistent with p elvic congestion syndrome. There are no abnormal adnexal mass is evident and there is no free fluid in the pelvis. 3. Very subtle small densities in the gallbladder which are not calcified. Nevertheless may represen t small gallstones. Recommend follow-up ultrasound. There is no gallbladder wall edema to suggest a cute cholecystitis and there is no dilatation of the biliary tree, both intra and extrahepatic. 4. Fluid-filled upper normal diameter small-bowel loop seen throughout the pelvis, of questionable si gnificance. There is no obvious bowel obstruction. There is no ascites. RADIATION DOSE DELIVERED: 529.86mGy.cm Total DLP DATA REPOSITORY: All CT scans at this facility are submitted to the National Radiology Data Registry (NRDR) Dose Index Registry (DIR) with the [employer] ([employer]). RADIATION OPTIMIZATION: All CT scans at this facility use at least one of these dose optimization te chniques: automated exposure control; mA and/or kV adjustment per patient size (includes targeted exa ms where dose is matched to clinical indication); or iterative reconstruction.
[2021-02-27] MEDS: Normal Saline 1,000 ML 1000 ML IV ×2 (15:23→15:38)
--- NOTE | 2021-02-27 15:24 | ED.GENADUL_ITS ---
Discharge Plan Disposition Patient Disposition: AGAINST MEDICAL ADVICE Condition: Serious Discharge Details Clinical Impression: Fever Primary Care Provider: Johny Herrera ED Provider: Lisette Pugh Home Meds and New Rx's Prescriptions: Continued lorazepam 0.5 mg tablet 0.5 mg PO BID PRN for anxiety Qty: 60 RF: 3 trazodone 100 mg tablet 100 mg PO QHS PRNRF: 0 nitrofurantoin monohyd/m-cryst [Macrobid] 100 mg capsule 100 mg PO Q12H Qty: 14 RF: 0 cetirizine 10 mg tablet 10 mg PO DAILY Qty: 90 RF: 4 lisinopril 40 mg tablet 40 mg PO DAILY Qty: 90 RF: 4 hydrochlorothiazide 25 mg tablet 25 mg PO DAILY Qty: 90 RF: 4 montelukast [Singulair] 10 mg tablet 10 mg PO QPM Qty: 90 RF: 4 triamcinolone acetonide 0.1 % cream 1 applic topical DAILY PRN (Reason: dermatitis) Qty: 80 RF: 0 gabapentin 300 mg capsule See Rx Instructions PO BID Qty: 270 RF: 3 ascorbic acid (vitamin C) [Vitamin C] 500 MG tablet 500 mg PO BID RF: 0 calcium citrate-vitamin D3 1 EACH tablet 1 ea PO DAILY RF: 0 cholecalciferol (vitamin D3) 1,000 UNIT tablet 5,000 unit PO DAILY RF: 0 (DME) syringe (disposable) 3 mL syringe 1 ea IM EVERY 5 DAYS 90 Days Qty: 18 RF: 3 levalbuterol tartrate 45 mcg/actuation HFA aerosol inhaler 2 inh IH Q4H PRN (Reason: shortness of breath or wheezing) Qty: 15 RF: 11 Adult 50 Plus Probiotic 4 billion cell capsule 4,000 mmu cells PO DAILY Qty: 60 RF: 0 ibuprofen 200 mg Tablet 400 mg PO Q6H PRNRF: 0 azelastine 0.05 % drops 1 drp OP BID PRNRF: 0 cyanocobalamin (vitamin B-12) 1,000 mcg/mL solution 1,000 mcg IM DIRECTED RF: 0 amlodipine 5 mg tablet 5 mg PO HS RF: 0 Discharge Instructions Instructions: Fever in Adults (ED) Additional Instructions: You are leaving against our recommendation I recommend you see your primary care physician in 24 to 48 hours Please return to the emergency room with persistent or worsening symptoms Take Tylenol as needed for fever control Discharge Data Discharge Date/Time-TO BE ENTERED AT DEPARTURE: 02/27/21 18:29 Medical Decision Making <RAISSA Forrest - Last Filed: 02/28/21 07:43> 60-year-old female, diagnosed with UTI yesterday, presents with fever, chills, left flank pain, dysuria, she is tachycardic, initial concern for pyelonephritis, sepsis, abscess secondary to recent surgery etc. Will initiate a septic work-up, give 2 L IV fluid, and given 750 IV Levaquin. Initial laboratory values reveal a white blood cell count of 16.25, lactate of 2.3 sodium 132, potassium 3.4, creatinine 1.1 with a GFR of 50.33, urinalysis is surprisingly unremarkable, will obtain microscopic. Will obtain CT imaging of abdomen pelvis with contrast Medical Records Medical records reviewed: Yes I reviewed the patient's medical records. Lab Data Lab results reviewed: Yes I reviewed the patient's lab results. Labs: 02/27/21 15:25 Blood Blood Culture - Pending 02/27/21 14:55 Blood Blood Culture - Pending Laboratory Tests Range/Units 02/27/21 02/27/21 02/27/21 14:55 14:55 14:55 WBC (4.4-10.8) 10^3/uL 16.25 H RBC (3.93-5.22) 10^6/uL 4.65 Hgb (11.2-15.7) g/dL 12.8 Hct (36.0-46.0) % 36.9 MCV (80-95) fL 79.4 L MCH (27.0-33.0) pg 27.5 MCHC (32.0-36.0) % 34.7 RDW (11.7-14.6) % 14.0 Plt Count (130-400) 10^3/uL 221 MPV (8.0-11.0) fL 8.5 Immature Gran % 0.6 Neutrophils % 91.9 Lymphocytes % 3.3 Monocytes % 2.8 Eosinophils % 1.2 Basophils % 0.2 Nucleated RBC % % 0 Absolute Neutrophils (1.2-6.7) 10^3/uL 14.93 H Absolute Lymphocytes (1.2-3.4) 10^3/uL 0.54 L Absolute Monocytes (0.1-0.8) 10^3/uL 0.46 Absolute Eosinophils (0.0-0.7) 10^3/uL 0.20 Absolute Basophils (0.0-0.2) 10^3/uL 0.03 VBG Lactate (0.6-1.4) mmol/L 2.3 H* Sodium (136-145) mmol/L 132 L Potassium (3.5-5.1) mmol/L 3.4 L Chloride (98-107) mmol/L 100 Carbon Dioxide (21.0-32.0) mmol/L 23.9 Anion Gap (3-11) mmol/L 8.1 BUN (7-18) mg/dL 13 Creatinine (0.55-1.02) mg/dL 1.1 H Estimated GFR/1.73 m2 (mL/min/1.73m2) 50.33 Glucose (74-106) mg/dL 146 H Calcium (8.5-10.1) mg/dL 9.0 Total Bilirubin (0.2-1.0) mg/dL 0.7 AST (15-37) U/L 12 L ALT (14-59) U/L 17 Alkaline Phosphatase (46-116) U/L 53 Total Protein (6.4-8.2) g/dL 6.7 Albumin (3.4-5.0) g/dL 3.7 Urine Color (Yellow) Urine Clarity (Clear) Urine pH (5-8) Ur Specific Hayden (1.005-1.025) Urine Protein (Negative) mg/dL Urine Ketones (Negative) mg/dL Urine Blood (Negative) Urine Nitrite (Negative) Urine Bilirubin (Negative) Urine Urobilinogen (Up TO 0.2) EU/dL Ur Leukocyte Esterase (Negative) Urine Glucose (Negative) mg/dL COVID-19 Source Range/Units 02/27/21 02/27/21 15:37 15:45 WBC (4.4-10.8) 10^3/uL RBC (3.93-5.22) 10^6/uL Hgb (11.2-15.7) g/dL Hct (36.0-46.0) % MCV (80-95) fL MCH (27.0-33.0) pg MCHC (32.0-36.0) % RDW (11.7-14.6) % Plt Count (130-400) 10^3/uL MPV (8.0-11.0) fL Immature Gran % Neutrophils % Lymphocytes % Monocytes % Eosinophils % Basophils % Nucleated RBC % % Absolute Neutrophils (1.2-6.7) 10^3/uL Absolute Lymphocytes (1.2-3.4) 10^3/uL Absolute Monocytes (0.1-0.8) 10^3/uL Absolute Eosinophils (0.0-0.7) 10^3/uL Absolute Basophils (0.0-0.2) 10^3/uL VBG Lactate (0.6-1.4) mmol/L Sodium (136-145) mmol/L Potassium (3.5-5.1) mmol/L Chloride (98-107) mmol/L Carbon Dioxide (21.0-32.0) mmol/L Anion Gap (3-11) mmol/L BUN (7-18) mg/dL Creatinine (0.55-1.02) mg/dL Estimated GFR/1.73 m2 (mL/min/1.73m2) Glucose (74-106) mg/dL Calcium (8.5-10.1) mg/dL Total Bilirubin (0.2-1.0) mg/dL AST (15-37) U/L ALT (14-59) U/L Alkaline Phosphatase (46-116) U/L Total Protein (6.4-8.2) g/dL Albumin (3.4-5.0) g/dL Urine Color (Yellow) Yellow Urine Clarity (Clear) Clear Urine pH (5-8) 7.5 Ur Specific Hayden (1.005-1.025) 1.020 Urine Protein (Negative) mg/dL Negative Urine Ketones (Negative) mg/dL Negative Urine Blood (Negative) Negative Urine Nitrite (Negative) Negative Urine Bilirubin (Negative) Negative Urine Urobilinogen (Up TO 0.2) EU/dL 0.2 Ur Leukocyte Esterase (Negative) Negative Urine Glucose (Negative) mg/dL Negative COVID-19 Source Nasal/Nares <RAISSA Haque - Last Filed: 02/27/21 20:57> Care accepted in transfer from Doug Howard PA-C CT abdomen and pelvis does not show acute abnormality per virtual radiology review Patient does have leukocytosis with a slight shift which is concerning, she may SIRS criteria although I don't have a source, she does have dysuria and is currently taking Macrobid although her urinalysis completely clear, I did send this for urine culture She is alert, oriented, of decisional capacity, her daughter is in the room throughout the entirety of the evaluation, my recommendation is to admit her for observation She adamantly refuses admission at this time She leaving the hospital AGAINST MEDICAL ADVICE and she is encouraged to return as soon as she is stable for additional evaluation Discharged home with stable vital in care of daughter Radiology ordered chest x-ray which also does not show acute pathology per radiology interpretation in my review Medical Records Medical records reviewed: Yes I reviewed the patient's medical records. HPI <RAISSA Forrest - Last Filed: 02/28/21 07:43> General Mode of arrival: ambulatory . Date/Time Provider Initiated Documentation: 02/27/21 14:18 . Limitations to Documentation: no limitations . Information obtained by: patient and family . HPI Narrative: This is a 60-year-old female, past medical history that includes anxiety, depression, hypertension, history of seizure disorder, left inguinal hernia repair about 1 month ago, diagnosed with a UTI yesterday at the urgent care, now presenting for left flank pain, fever and chills. T-max 102 today, nausea, rigors, diaphoresis, dysuria, and headache. Denies neck pain, chest pain, shortness of breath, abdominal pain, hematuria, diarrhea, constipation. Denies recent trauma. Denies recent sick contacts. Took a single dose of Tylenol this morning. Denies any vaginal bleeding. Patient downplays her symptoms, daughter is quite concerned about her Related Data Home Medications Medication Instructions Recorded Confirmed ascorbic acid (vitamin C) [Vitamin 500 mg PO BID 12/28/12 02/27/21 C] calcium citrate-vitamin D3 1 ea PO DAILY 09/20/13 02/27/21 cholecalciferol (vitamin D3) 5,000 unit PO DAILY 06/21/17 02/27/21 lorazepam 0.5 mg tablet 0.5 mg PO BID PRN for anxiety #60 04/22/20 02/27/21 tab-cap syringe (disposable) 3 mL #18 syringe 05/16/20 01/26/21 levalbuterol tartrate 45 2 inh IH Q4H PRN #15 gm 07/08/20 02/27/21 mcg/actuation aerosol inhaler cetirizine 10 mg tablet 10 mg PO DAILY #90 tab 10/02/20 02/27/21 hydrochlorothiazide 25 mg tablet 25 mg PO DAILY #90 tab 10/02/20 02/27/21 lisinopril 40 mg tablet 40 mg PO DAILY #90 tab 10/02/20 02/27/21 montelukast 10 mg tablet 10 mg PO QPM #90 tab 10/02/20 02/27/21 triamcinolone acetonide 0.1 % 1 applic TOPICAL DAILY PRN #80 g 10/02/20 02/27/21 topical cream lactobacillus combination no.9 4 4,000 mmu cells PO DAILY #60 cap 11/03/20 02/27/21 billion cell capsule trazodone 100 mg tablet 100 mg PO QHS PRN 11/24/20 02/27/21 azelastine 1 drp OP BID PRN 01/23/21 02/27/21 cyanocobalamin (vitamin B-12) 1,000 mcg IM DIRECTED 01/23/21 02/27/21 ibuprofen 400 mg PO Q6H PRN 01/23/21 02/27/21 amlodipine 5 mg PO HS 01/26/21 02/27/21 gabapentin 300 mg capsule See Rx Instructions PO BID #270 cap 01/26/21 02/27/21 nitrofurantoin 100 mg PO Q12H #14 cap 02/26/21 02/27/21 monohydrate/macrocrystals 100 mg capsule Previous Rx's Medication Instructions Recorded lorazepam 0.5 mg tablet 0.5 mg PO BID PRN for anxiety #60 04/22/20 tab-cap syringe (disposable) 3 mL #18 syringe 05/16/20 levalbuterol tartrate 45 2 inh IH Q4H PRN #15 gm 07/08/20 mcg/actuation aerosol inhaler cetirizine 10 mg tablet 10 mg PO DAILY #90 tab 10/02/20 hydrochlorothiazide 25 mg tablet 25 mg PO DAILY #90 tab 10/02/20 lisinopril 40 mg tablet 40 mg PO DAILY #90 tab 10/02/20 montelukast 10 mg tablet 10 mg PO QPM #90 tab 10/02/20 triamcinolone acetonide 0.1 % 1 applic TOPICAL DAILY PRN #80 g 10/02/20 topical cream lactobacillus combination no.9 4 4,000 mmu cells PO DAILY #60 cap 11/03/20 billion cell capsule gabapentin 300 mg capsule See Rx Instructions PO BID #270 cap 01/26/21 nitrofurantoin 100 mg PO Q12H #14 cap 02/26/21 monohydrate/macrocrystals 100 mg capsule Allergies Allergy/AdvReac Type Severity Reaction Status Date / Time doxycycline AdvReac Severe ABD Verified 02/27/21 14:16 CRAMPS/ CONSTIPATION propranolol AdvReac Intermediate DEPRESSION Verified 02/27/21 14:16 albuterol AdvReac Mild tremors Verified 02/27/21 14:16 meloxicam AdvReac Mild fluid Verified 02/27/21 14:16 retention erythromycin base AdvReac Unknown NAUSEA/VOMI Verified 02/27/21 14:16 TING General Stated Complaint: GenMedical JOLENE: 3 <RAISSA Haque - Last Filed: 02/27/21 20:57> General Mode of arrival: ambulatory . Limitations to Documentation: no limitations . Information obtained by: patient . Review of Systems <RAISSA Forrest - Last Filed: 02/28/21 07:43> Constitutional Constitutional: Reports chills, Denies fatigue, Reports fever(s) and Reports headache(s) ENT Ears, Nose, Mouth, and Throat: Reports headache(s) and Denies neck pain Cardiovascular Cardiovascular: Denies chest pain and Denies dyspnea Respiratory Respiratory: Denies dyspnea Gastrointestinal Gastrointestinal: Denies abdominal pain, Reports nausea and Denies vomiting Genitourinary Genitourinary: Reports dysuria Musculoskeletal Musculoskeletal: Reports back pain and Denies neck pain Integumentary/Breasts Skin/Breast: Denies rash Neurologic Neurologic: Reports headache(s) Endocrine Endocrine: Denies fatigue Hematologic/Lymphatic Hematologic/Lymphatic: Denies easy bleeding and Denies easy bruising PFS <RAISSA Forrest - Last Filed: 02/28/21 07:43> Medical History Anxiety (03/08/18) Depression (05/31/17) Essential hypertension (02/06/14) Fatigue Hernia, inguinal, left 08/22/20 US - 1.2cm, fat containing History of seizure Per pt. states this was a result of her b12 defiency and since adding b12 has not had a seixure in 6 years Hyperlipidemia Insomnia Low back pain (01/31/15) Mild intermittent asthma Osteoarthritis (01/03/14) mid back pain (DJD on chest CT) Rosacea, unspecified (07/15/15) Seasonal allergies Varicose veins of lower extremity left leg Vitamin B 12 deficiency (07/19/14) B12 injections q 5 days per pt report. Surgical History Ankle repair (left) Appendectomy age 13 Arthroplasty [facility] [place]11[place]17; RIGHT BASAL JOINT WITH PINNING Biopsy of breast (~2005) Frozen shoulder H/O left inguinal hernia repair (~01/27/21) Hand Surgery 11/01/16 Tonsillectomy Trigger Finger release (~07/2009) Thumb Family History Mother , 70 ALS (amyotrophic lateral sclerosis) Father Essential hypertension Prostate cancer Stroke Skin cancer Sister Diabetes Essential hypertension Depression Heart disease Brother Alcohol abuse Depression Essential hypertension Maternal Grandfather No problems noted. Paternal Grandfather , 89 Heart disease Stroke Maternal Grandmother , approx 60 Cancer Paternal Grandmother , 59 Vaginal cancer Heart disease Son Heart disease Daughter Asthma Social History Smoking/Tobacco Use Status: Current every day Tobacco Type: cigarettes Smoking packs per day: 0.5 Smoking cigarettes per day: 10.0 Tobacco: How many years used: 30 Quit status: considering quitting Second Hand Exposure: Yes Smoking risk assessment performed?: Yes Alcohol Intake: never Drug use: Never Substance use type: does not use Caregiver/Support person: No Household members: none Housing: house Number of Children: 2 Communication Needs: Hard of Hearing and Corrective Lenses Do you need help understanding health information?: Rarely Pets and animals: Yes Pets and animals: cat(s) Sexually active: No Do you think of yourself as: straight/heterosexual Current gender identity: female What is your relationship status?: How often do you talk on the phone with friends or family?: three or more times per week How often do you get together with friends or relatives?: three or more times per week How often do you attend lutheran or sikhism services?: decline to answer Do you belong to any clubs or organized social groups?: no Panel score (0-1 are the most socially isolated patients): 1 What type of physical activity do you participate in: decline to answer Duration: decline to answer Frequency: decline to answer Jessica/Oriental Orthodox: None Special jessica needs: No Seatbelt use: sometimes Drive intox or ride w/intox miniature train driver: No Do you feel safe at home: Yes Do you feel safe in your relationship?: Yes Female Reproductive History Menstrual Menopause type: natural History History 2 Para 2 Hx # Term Pregnancies Multiple births Hx # Pregnancies Ectopic pregnancies AB induced Hx Number of Living Children 2 AB spontaneous Exam <RAISSA Forrest - Last Filed: 02/28/21 07:43> Const General: cooperative and ill appearing Orientation: alert, awake and oriented x3 HENMT Head: normal to inspection, normocephalic and atraumatic General nose exam: external nose normal Face and sinus: normal facial exam Mouth: moist mucous membranes Eyes General: appearance normal, both eyes and all related structures Conjunctivae: conjunctivae normal Neck Neck: normal visual inspection, full ROM, trachea midline and supple Resp Effort & Inspection: normal respiratory effort and able to speak in complete sentences Auscultation: clear to auscultation bilaterally Cardio Rate: tachycardic Rhythm: regular rhythm GI Inspection: normal to inspection Palpation: soft, not firm, no guarding, no pulsatile masses and tender (Mild left flank) Auscultation: normal bowel sounds Other: Well-healing surgical incision left suprapubic region, no signs of infection Back/Spine/Pelvis Back: CVA tenderness (left) and No back tenderness Skin General skin exam: no rashes or lesions noted Neuro General: patient alert, patient awake, patient oriented x3, moves all extremities and no focal motor deficits Cognition: normal cognition Speech: speech normal Gait: normal gait Motor: muscle tone normal throughout Sensory Exam: no sensory deficits noted Psych Appearance: grossly normal Mental Status: mental status grossly normal Course <RAISSA Forrest - Last Filed: 02/28/21 07:43> Vital Signs Vital signs: Vital Signs Temperature 38.8 C H 02/27/21 14:12 Pulse 106 H 02/27/21 14:12 Respiratory Rate 20 02/27/21 14:12 Blood Pressure 150/83 H 02/27/21 14:12 Pulse Oximetry 97 02/27/21 14:12 Temperature 38.8 C H 02/27/21 14:12 Temperature Source Temporal Artery Scan 02/27/21 14:12 Pulse 106 H 02/27/21 14:12 Respiratory Rate 20 02/27/21 14:12 Respiratory Effort Non-Labored 02/27/21 14:17 Blood Pressure 150/83 H 02/27/21 14:12 Blood Pressure Position Sitting 02/27/21 14:12 Pulse Oximetry 97 02/27/21 14:12 Oxygen Delivery Method Room Air 02/27/21 14:12 Oxygen Flow Rate 0 02/27/21 14:12 Pain Level 5 02/27/21 14:12 Lab/Test Results Lab/Test Results: 02/27/21 14:55 Blood Blood Culture - Pending 02/27/21 14:20 Blood Blood Culture - Pending Laboratory Tests Range/Units 02/27/21 02/27/21 14:55 14:55 WBC (4.4-10.8) 10^3/uL 16.25 H RBC (3.93-5.22) 10^6/uL 4.65 Hgb (11.2-15.7) g/dL 12.8 Hct (36.0-46.0) % 36.9 MCV (80-95) fL 79.4 L MCH (27.0-33.0) pg 27.5 MCHC (32.0-36.0) % 34.7 RDW (11.7-14.6) % 14.0 Plt Count (130-400) 10^3/uL 221 MPV (8.0-11.0) fL 8.5 Immature Gran % 0.6 Neutrophils % 91.9 Lymphocytes % 3.3 Monocytes % 2.8 Eosinophils % 1.2 Basophils % 0.2 Nucleated RBC % % 0 Absolute Neutrophils (1.2-6.7) 10^3/uL 14.93 H Absolute Lymphocytes (1.2-3.4) 10^3/uL 0.54 L Absolute Monocytes (0.1-0.8) 10^3/uL 0.46 Absolute Eosinophils (0.0-0.7) 10^3/uL 0.20 Absolute Basophils (0.0-0.2) 10^3/uL 0.03 VBG Lactate (0.6-1.4) mmol/L 2.3 H* Critical Care Time <RAISSA Forrest - Last Filed: 02/28/21 07:43> Critical Care Time Critical Care Time: Yes Total Critical Care Time: 35 Attestation: Upon my evaluation, this patient had a high probability of cl inically significant, life-threatening deterioration due to their current medical conditions, which required my direct attention, intervention, and personal management. I have personally provided greater than 30 minutes of critical care time exclusive of the time spend on separately billable procedures. Time includes obtaining a history, examining the patient, pulse oximetry, review of laboratory data, radiology results, discussion with consultants, arranging urgent treatment with development of a management plan, evaluation of patient's response to treatment, and monitoring for potential deco mpensation. Interventions were performed as documented above. Sign Out <RAISSA Forrest - Last Filed: 02/28/21 07:43> Sign Out Data: Sign Out Comment: fever, chills, left flank pain, and dysuria. Diagnosed with UTI at urgent care yesterday, 2 doses of Macrobid taken thus far. Urine dip here in the ER negative, she is afebrile, leukocytosis, elevated lactate. Given 750 IV Levaquin for presumptive pyelonephritis given her initial presentation. Awaiting CT abdomen and pelvis with contrast Last updated by Doug Howard PA at 02/27/21 16:14
[2021-02-27 15:31] LABS: ALT 17 U/L (14-59); AST 12 U/L (15-37); Albumin 3.7 g/dL (3.4-5.0); Alkaline Phosphatase 53 U/L (46-116); Anion Gap 8.1 mmol/L (3-11); BUN 13 mg/dL (7-18); Bilirubin, Total 0.7 mg/dL (0.2-1.0); CO2 23.9 mmol/L (21.0-32.0); CREATININE 1.1 mg/dL (0.55-1.02); Chloride 100 mmol/L (98-107); Estimated GFR 50.33 (mL/min/1.73m2); Glucose 146 mg/dL (74-106); Potassium 3.4 mmol/L (3.5-5.1); Sodium 132 mmol/L (136-145); Total Protein 6.7 g/dL (6.4-8.2)
[2021-02-27] MEDS: levoFLOXacin 750 MG/150 ML BAG 100 MG IVPB (15:38)
[2021-02-27] MEDS: Acetaminophen 500 MG TAB 1000 MG PO (15:38)
[2021-02-27 15:51] LABS: Bilirubin Negative (Negative); Blood Negative (Negative); Clarity Clear (Clear); Glucose Negative (Negative); Ketones Negative (Negative); Leukocyte Esterase Negative (Negative); Nitrite Negative (Negative); Urobilinogen 0.2 EU/dL (Up TO 0.2); pH 7.5 (5-8)
[2021-02-27 15:55] LABS: Source Nasal/Nares
[2021-02-27] MEDS: Normal Saline - Diluent 50 ML VIAL IV (16:18)
[2021-02-27] MEDS: Omnipaque 350 MG/ML 100 ML BTL IJ (16:18)
[2021-02-27] MEDS: Normal Saline Flush 10 ML SYR IVP (16:19)
[2021-02-27 16:32] LABS: Bacteria Negative HPF (Negative); C & S Indicated? No; Casts Negative LPF (Negative); Crystals Negative HPF (Negative); Epithelial Cells Few HPF (Negative); Mucus Negative (Negative); RBC 0-2 HPF (0-2); WBC 0-2 HPF (0-5)
--- NOTE | 2021-02-27 17:08 | DI.VRAD_ITS ---
PROCEDURE INFORMATION: Exam: CT Abdomen And Pelvis With Contrast Exam date and time: 02/27/2021 3:24 PM Age: 60 years old Clinical indication: Other: UTI, flank pain, elevated wbc \T\ lactate. TECHNIQUE: Imaging protocol: Computed tomography of the abdomen and pelvis with contrast. Radiation optimization: All CT scans at this facility use at least one of these dose optimization techniques: automated exposure control; mA and/or kV adjustment per patient size (includes targeted exams where dose is matched to clinical indication); or iterative reconstruction. Contrast material: OMNIPAQUE 350; Contrast volume: 100 ml; Contrast route: INTRAVENOUS (IV); COMPARISON: CT ABD/PELVIS WO W CONTRAST 01/13/2018 10:53 AM FINDINGS: Liver: Normal. No mass. Gallbladder and bile ducts: Normal. No calcified stones. No ductal dilation. Pancreas: Normal. No ductal dilation. Spleen: Normal. No splenomegaly. Adrenal glands: Normal. No mass. Kidneys and ureters: Normal. No hydronephrosis. Stomach and bowel: Unremarkable. No obstruction. No mucosal thickening. Appendix: Unable to identify the appendix. Intraperitoneal space: Unremarkable. No free air. No significant fluid collection. Vasculature: Atherosclerosis. Bilateral pelvic varices. Lymph nodes: Unremarkable. No enlarged lymph nodes. Urinary bladder: Unremarkable as visualized. Reproductive: Unremarkable as visualized. Bones/joints: degenerative disc disease at L5-S1. Soft tissues: Unremarkable. IMPRESSION: No renal stones. No hydronephrosis. No bladder stones. Dictated and Authenticated by: Abundio Mao MD. Ordering:EFREN Camacho MD
--- NOTE | 2021-02-27 17:15 | DI.RAD_ITS ---
Exam(s) XR CHEST 2V PA LATERAL EXAM: XR CHEST 2V PA LATERAL CLINICAL HISTORY: fever. TECHNIQUE: 2D digital imaging was performed. COMPARISON: CR CHEST 2 VIEWS PA,LAT from 05/10/2017 FINDINGS: Heart size is normal. The mediastinum is not widened. Lungs are clear. No infiltrates nor pleural effusions. IMPRESSION: No acute pulmonary findings. DATA REPOSITORY: RADIATION DOSE DELIVERED:
[2021-02-27 17:46] LABS: COVID-19 PCR Negative (Negative)
--- NOTE | 2021-02-27 17:46 | DI.VRAD_ITS ---
PROCEDURE INFORMATION: Exam: XR Chest Exam date and time: 02/27/2021 5:27 PM Age: 60 years old Clinical indication: Fever TECHNIQUE: Imaging protocol: XR of the chest. Views: 2 views. COMPARISON: CR CHEST 2 VIEWS PA,LAT 05/10/2017 12:56 PM FINDINGS: Lungs: Unremarkable. No consolidation. Pleural spaces: Unremarkable. No pleural effusion. No pneumothorax. Heart/Mediastinum: Unremarkable. No cardiomegaly. Vasculature: Atherosclerosis in the aortic arch. Bones/joints: Unremarkable. IMPRESSION: No acute finding. Dictated and Authenticated by: Abundio Mao MD. Ordering:ALFREDO Knox MD
== END 2021-02-27 18:29 | disposition left against medical advice (07) ==
PROVIDERS: Physician Assistant; Emergency Provider Physician Assistant; PCP Nurse Practitioner Family
DX: R50.9 Fever, unspecified (principal); Z53.21 Procedure and treatment not carried out due to patient leaving prior to being seen by health care provider; Z20.822 Contact with and (suspected) exposure to COVID-19
CPT/HCPCS: 36415; 80053; 87040; 87635; 96361; 96365; 99285; 71046; 74177; 81003; 81015; 83605; 85025; 99284; J1956; J3490

== ENCOUNTER → 2021-04-21 12:40 | Outpatient (BNVA) | payer MEDICARE, SELFPAY | PROVIDERS: PCP Nurse Practitioner Family; Visit Provider Psychiatry & Neurology Neurology | DX: R25.1 Tremor, unspecified (principal); E53.8 Deficiency of other specified B group vitamins; G62.9 Polyneuropathy, unspecified | CPT/HCPCS: 99214 ==

== ENCOUNTER → 2021-07-21 10:13 | Outpatient (BNVA) | payer MEDICARE, SELFPAY | PROVIDERS: PCP Nurse Practitioner Family; Referring Provider Nurse Practitioner Family; Visit Provider Psychiatry & Neurology Neurology | DX: R25.1 Tremor, unspecified (principal); R26.89 Other abnormalities of gait and mobility; E53.8 Deficiency of other specified B group vitamins; G62.9 Polyneuropathy, unspecified; I10 Essential (primary) hypertension; J44.9 Chronic obstructive pulmonary disease, unspecified | CPT/HCPCS: 99213 ==

== ENCOUNTER 2021-08-10 16:38 | Outpatient (REF) | payer MEDICARE, SELFPAY | END 2021-08-10 16:39 | disposition home or self-care (01) | LOC: LBN 16:38 | PROVIDERS: PCP Nurse Practitioner Family; Visit Provider Nurse Practitioner Family | DX: N39.0 Urinary tract infection, site not specified (principal) | CPT/HCPCS: 87086 ==

== ENCOUNTER → 2021-09-01 09:45 | Outpatient (BNVA) | payer MEDICARE, SELFPAY | PROVIDERS: PCP Nurse Practitioner Family; Referring Provider Nurse Practitioner Family; Visit Provider Psychiatry & Neurology Neurology | DX: R25.1 Tremor, unspecified (principal); E53.8 Deficiency of other specified B group vitamins; G62.9 Polyneuropathy, unspecified; F41.8 Other specified anxiety disorders; R26.89 Other abnormalities of gait and mobility | CPT/HCPCS: 99214 ==

== ENCOUNTER → 2021-10-14 10:44 | Outpatient (BNVA) | payer MEDICARE, SELFPAY | PROVIDERS: PCP Nurse Practitioner Family; Visit Provider Psychiatry & Neurology Neurology | DX: F41.9 Anxiety disorder, unspecified (principal); F32.A Depression, unspecified; G47.00 Insomnia, unspecified; E53.9 Vitamin B deficiency, unspecified; G63 Polyneuropathy in diseases classified elsewhere; R25.1 Tremor, unspecified | CPT/HCPCS: 99213 ==

== ENCOUNTER → 2021-12-24 13:12 | Outpatient (BNVA) | payer MEDICARE, SELFPAY | PROVIDERS: PCP Nurse Practitioner Family; Referring Provider Nurse Practitioner Family; Visit Provider Psychiatry & Neurology Neurology | DX: G63 Polyneuropathy in diseases classified elsewhere (principal); F41.9 Anxiety disorder, unspecified; R25.1 Tremor, unspecified; E53.8 Deficiency of other specified B group vitamins | CPT/HCPCS: 99214 ==

== ENCOUNTER 2022-01-07 16:04 | Outpatient (REF) | payer MEDICARE, SELFPAY | END 2022-01-07 16:05 | disposition home or self-care (01) | LOC: LBN 16:04 | PROVIDERS: PCP Nurse Practitioner Family; Visit Provider Nurse Practitioner Family | DX: N39.0 Urinary tract infection, site not specified (principal) | CPT/HCPCS: 87077; 87086; 87186 ==

== ENCOUNTER → 2022-03-03 14:30 | Outpatient (BNVA) | payer MEDICARE, SELFPAY | PROVIDERS: PCP Nurse Practitioner Family; Referring Provider Nurse Practitioner Family; Visit Provider Psychiatry & Neurology Neurology | DX: G47.00 Insomnia, unspecified (principal); F41.9 Anxiety disorder, unspecified; F32.9 Major depressive disorder, single episode, unspecified; J44.9 Chronic obstructive pulmonary disease, unspecified; I10 Essential (primary) hypertension; R25.1 Tremor, unspecified; E53.8 Deficiency of other specified B group vitamins; G62.9 Polyneuropathy, unspecified | CPT/HCPCS: 99214 ==

== ENCOUNTER → 2022-05-05 10:43 | Outpatient (BNVA) | payer MEDICARE, SELFPAY | PROVIDERS: PCP Nurse Practitioner Family; Referring Provider Nurse Practitioner Family; Visit Provider Psychiatry & Neurology Neurology | DX: F32.A Depression, unspecified (principal); F41.9 Anxiety disorder, unspecified; R25.1 Tremor, unspecified; E53.8 Deficiency of other specified B group vitamins; G62.9 Polyneuropathy, unspecified | CPT/HCPCS: 99214 ==

== ENCOUNTER 2022-05-05 18:36 | Outpatient (REF) | payer MEDICARE, SELFPAY | END 2022-05-05 18:37 | disposition home or self-care (01) | LOC: LBN 18:36 | PROVIDERS: PCP Nurse Practitioner Family; Visit Provider Nurse Practitioner Family | DX: N39.0 Urinary tract infection, site not specified (principal) | CPT/HCPCS: 87086 ==

== ENCOUNTER 2022-06-09 14:40 | Emergency (ER) | payer MEDICARE, SELFPAY ==
[2022-06-09 14:45] VITALS: BP 131/85; PULSE 78; RESP 18; TEMP 36.4; O2SAT 98
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
[2022-06-09] MEDS: Ibuprofen 600 MG TAB PO (16:12)
[2022-06-09] MEDS: Acetaminophen 500 MG TAB 1000 MG PO (16:12)
[2022-06-09] MEDS: Amoxicillin 875/Clav. 125 TAB PO (16:12)
== END 2022-06-09 16:14 | disposition home or self-care (01) ==
PROVIDERS: Emergency Provider Physician Assistant; PCP Nurse Practitioner Family
DX: S61.451A Open bite of right hand, initial encounter (principal); S61.452A Open bite of left hand, initial encounter; S51.852A Open bite of left forearm, initial encounter; W54.0XXA Bitten by dog, initial encounter
CPT/HCPCS: 99283; 99284

== ENCOUNTER → 2022-08-26 12:59 | Outpatient (BNVA) | payer MEDICARE, SELFPAY | PROVIDERS: PCP Nurse Practitioner Family; Referring Provider Nurse Practitioner Family; Visit Provider Psychiatry & Neurology Neurology | DX: F32.A Depression, unspecified (principal); F41.9 Anxiety disorder, unspecified; G47.00 Insomnia, unspecified; R25.1 Tremor, unspecified; E53.8 Deficiency of other specified B group vitamins; G62.9 Polyneuropathy, unspecified | CPT/HCPCS: 99214 ==

== ENCOUNTER 2022-09-15 01:35 | Outpatient (CLI) | payer MEDICARE, SELFPAY ==
--- NOTE | 2022-09-15 08:00 | DI.RAD_ITS ---
Exam(s) XR THUMB RT EXAM: XR THUMB RT CLINICAL HISTORY: right IP pain, post dog bite 3mo ago,M79.644. TECHNIQUE: 2D digital imaging was performed. Three views. COMPARISON: No exams were available for comparison FINDINGS: BONES: No acute fracture is present. No bony destructive lesion is seen. Prior resection of the trap ezium. JOINTS: No dislocation present. Mild degenerative changes of the interphalangeal joints. SOFT TISSUE: Normal. No foreign body or gas collection. IMPRESSION: No acute abnormality. DATA REPOSITORY: RADIATION DOSE DELIVERED:
== END 2022-09-15 01:55 ==
PROVIDERS: PCP Nurse Practitioner Family; Visit Provider Nurse Practitioner Family
DX: M79.644 Pain in right finger(s) (principal); M25.841 Other specified joint disorders, right hand
CPT/HCPCS: 73140

== ENCOUNTER 2022-09-16 04:24 | Outpatient (CLI) | payer MEDICARE, SELFPAY ==
[2022-09-16 12:49] LABS: Abs Immature Grans 0.02 10^3/uL (0.0-0.06); Absolute Basophil Count 0.06 10^3/uL (0.0-0.2); Absolute Eosinophil Count 0.25 10^3/uL (0.0-0.7); Absolute Lymphocyte Count 1.52 10^3/uL (1.2-3.4); Absolute Monocyte Count 0.52 10^3/uL (0.1-0.8); Absolute Neutrophil Count 3.18 10^3/uL (1.2-6.7); Basophils % 1.1; Eosinophils % 4.5; HCT 41.5 % (36.0-46.0); HGB 14.2 g/dL (11.2-15.7); Immature Grans % 0.4; Lymphocytes % 27.4; MCH 27.3 pg (27.0-33.0); MCHC 34.2 % (32.0-36.0); MCV 80 fL (80-95); MPV 9.4 fL (8.0-11.0); Monocytes % 9.4; Neutrophils % 57.2; Platelet Count 235 10^3/uL (130-400); RBC 5.21 10^6/uL (3.93-5.22); RDW 14.5 % (11.7-14.6); RDW-SD 42.3 fL; WBC 5.55 10^3/uL (4.4-10.8)
[2022-09-16 13:11] LABS: Total Iron Binding Capacity 263 ug/dL (250-450)
[2022-09-16 13:14] LABS: ALT 17 U/L (14-59); AST 18 U/L (15-37); Albumin 3.6 g/dL (3.4-5.0); Alkaline Phosphatase 64 U/L (46-116); Anion Gap 6.3 mmol/L (3-11); BUN 9 mg/dL (7-18); Bilirubin, Total 0.3 mg/dL (0.2-1.0); CO2 29.7 mmol/L (21.0-32.0); Calcium 9.4 mg/dL (8.5-10.1); Calculated LDL 154 mg/dL (<100); Chloride 98 mmol/L (98-107); Cholesterol 224 mg/dL (<200); Estimated GFR 62.91 (mL/min/1.73m2); Ferritin 305 ng/mL (8-252); Glucose 104 mg/dL (74-106); HDL Cholesterol 56 mg/dL (40-60); Potassium 3.3 mmol/L (3.5-5.1); Sodium 134 mmol/L (136-145); TSH (W/Ref FT4) 1.78 uIU/mL (0.36-3.74); Total Protein 6.7 g/dL (6.4-8.2); Triglyceride 72 mg/dL (<150)
[2022-09-17 13:47] LABS: Intrinsic Factor Blocking Ab Negative (Negative)
[2022-09-20 08:01] LABS: Lab Add On Test DONE
[2022-09-20 18:09] LABS: Vitamin B12 1083 pg/mL (211-911)
== END 2022-09-16 04:25 | disposition home or self-care (01) ==
LOC: LOS 04:24
PROVIDERS: PCP Nurse Practitioner Family; Visit Provider Nurse Practitioner Family
DX: D50.9 Iron deficiency anemia, unspecified (principal); E53.8 Deficiency of other specified B group vitamins; I10 Essential (primary) hypertension
CPT/HCPCS: 36415; 80053; 80061; 82607; 82728; 83550; 84443; 85025; 86340

== ENCOUNTER 2022-09-29 01:14 | Outpatient (CLI) | payer MEDICARE, SELFPAY ==
--- NOTE | 2022-09-29 07:45 | DI.CT_ITS ---
Exam(s) CT SINUS WO EXAM: CT SINUS WO CLINICAL HISTORY: Recurrent sinusitis,chronic,j32.9. Evaluate for sinusitis. TECHNIQUE: Imaging Protocol: Axial computed tomography images with coronal and sagittal reformatted images were created and reviewed. COMPARISON: No exams were available for comparison FINDINGS: Brain: Unremarkable as visualized. Frontal sinuses: Normally aerated. Ethmoid air cells: Normally aerated. Bony density area in a left ethmoid sinus likely benign osteoma. Maxillary sinuses: Right normally aerated. Left minimal amount mucous retention medial posterior aspe ct Sphenoid sinus: Normally aerated. Ostiomeatal complexes: Patent. Osseous nasal septum: Midline. Visualized regional soft tissues: No acute findings. Orbits: Unremarkable. Bones: Unremarkable. Mastoid Air Cells: Normally aerated. IMPRESSION: Mild mucous retention left maxillary sinus RADIATION DOSE DELIVERED: 123.63mGy.cm Total DLP DATA REPOSITORY: All CT scans at this facility are submitted to the National Radiology Data Registry (NRDR) Dose Index Registry (DIR) with the [employer] (A[employer]). RADIATION OPTIMIZATION: All CT scans at this facility use at least one of these dose optimization te chniques: automated exposure control; mA and/or kV adjustment per patient size (includes targeted exa ms where dose is matched to clinical indication); or iterative reconstruction.
== END 2022-09-29 01:34 ==
LOC: DI 01:14
PROVIDERS: PCP Nurse Practitioner Family; Visit Provider Registered Nurse Maternal Newborn
DX: J32.9 Chronic sinusitis, unspecified (principal)
CPT/HCPCS: 70486

== ENCOUNTER 2022-10-22 02:08 | Outpatient (CLI) | payer MEDICARE, SELFPAY ==
[2022-10-22 14:36] LABS: Anion Gap 8.8 mmol/L (3-11); BUN 11 mg/dL (7-18); CO2 28.2 mmol/L (21.0-32.0); CREATININE 1.1 mg/dL (0.55-1.02); Calcium 9.4 mg/dL (8.5-10.1); Chloride 99 mmol/L (98-107); Estimated GFR 56.11 (mL/min/1.73m2); Ferritin 237 ng/mL (8-252); Glucose 93 mg/dL (74-106); Potassium 3.5 mmol/L (3.5-5.1); Sodium 136 mmol/L (136-145)
== END 2022-10-22 02:09 | disposition home or self-care (01) ==
LOC: LOS 02:09
PROVIDERS: PCP Nurse Practitioner Family; Visit Provider Nurse Practitioner Family
DX: D50.9 Iron deficiency anemia, unspecified (principal); E87.6 Hypokalemia
CPT/HCPCS: 36415; 80048; 82728

== ENCOUNTER → 2022-12-20 14:57 | Outpatient (BNVA) | payer OTHER, SELFPAY | PROVIDERS: PCP Nurse Practitioner Family; Referring Provider Nurse Practitioner Family; Visit Provider Psychiatry & Neurology Neurology | DX: R25.1 Tremor, unspecified (principal); G62.9 Polyneuropathy, unspecified; E53.8 Deficiency of other specified B group vitamins; R51.9 Headache, unspecified; G89.29 Other chronic pain; U09.9 Post COVID-19 condition, unspecified | CPT/HCPCS: 99214 ==

== ENCOUNTER 2023-01-12 01:40 | Outpatient (CLI) | payer OTHER, SELFPAY ==
--- NOTE | 2023-01-12 08:53 | DI.US_ITS ---
Exam(s) US HERNIA EXAM: US HERNIA CLINICAL HISTORY: hx of hernia repair, continued pain,z98.890,z87.19. TECHNIQUE: Ultrasound was performed using standard protocol. COMPARISON: CT CT ABDOMEN PELVIS W from 02/27/2021 FINDINGS: Sonographic assessment utilizing grayscale and color Doppler imaging was performed and targeted to th e area of clinical concern. Area of palpable abnormality corresponds to a normal appearing lymph node measuring 5 x 4 x 7 millime ters. There is no evidence of a hernia or fluid collection. IMPRESSION: Palpable abnormality corresponds to a 7 millimeter normal appearing lymph node. DATA REPOSITORY:
== END 2023-01-12 02:00 ==
LOC: DI 01:43
PROVIDERS: PCP Nurse Practitioner Family; Visit Provider Nurse Practitioner Family
DX: Z87.19 Personal history of other diseases of the digestive system (principal); Z98.890 Other specified postprocedural states; C77.2 Secondary and unspecified malignant neoplasm of intra-abdominal lymph nodes
CPT/HCPCS: 76857

== ENCOUNTER → 2023-03-30 10:30 | Outpatient (BNVA) | payer OTHER, SELFPAY | PROVIDERS: PCP Nurse Practitioner Family; Referring Provider Nurse Practitioner Family; Visit Provider Psychiatry & Neurology Neurology | DX: R25.1 Tremor, unspecified (principal); E53.8 Deficiency of other specified B group vitamins; G62.9 Polyneuropathy, unspecified; I10 Essential (primary) hypertension; J44.9 Chronic obstructive pulmonary disease, unspecified | CPT/HCPCS: 99214 ==

== ENCOUNTER → 2023-09-27 12:11 | Outpatient (BNVA) | payer MEDICARE, SELFPAY | PROVIDERS: PCP Nurse Practitioner Family; Referring Provider Nurse Practitioner Family; Visit Provider Psychiatry & Neurology Neurology | DX: R25.1 Tremor, unspecified (principal); E53.8 Deficiency of other specified B group vitamins; G62.9 Polyneuropathy, unspecified | CPT/HCPCS: 99214 ==

== ENCOUNTER → 2023-11-28 17:14 | Outpatient (CLI) | payer MEDICARE, SELFPAY ==
--- NOTE | 2023-11-28 15:57 | DI.RAD_ITS ---
Exam(s) XR CHEST 2V PA LATERAL EXAM: XR CHEST 2V PA LATERAL CLINICAL HISTORY: cough, hx of asthma R05.9 COUGH TECHNIQUE: 2D digital imaging was performed. Two views. COMPARISON: CR,XR XR CHEST 2V PA LATERAL from 02/27/2021 FINDINGS: HEART: Normal size. Aorta: Not dilated. PULMONARY VASCULATURE: Normal. LUNGS: Clear. Mild hyperinflation. PLEURAL SPACE: No pleural effusion or pneumothorax. BONE:Unremarkable for age. Soft tissues: Unremarkable. IMPRESSION: No acute abnormality. DATA REPOSITORY: RADIATION DOSE DELIVERED:
== END ==
PROVIDERS: PCP Nurse Practitioner Family; Visit Provider Nurse Practitioner Family
DX: R05.9 Cough, unspecified (principal)
CPT/HCPCS: 36415; 80048; 80076; 86803; 71046; 82607; 82728; 84443; 85025

== ENCOUNTER 2023-11-28 18:01 | Outpatient (CLI) | payer MEDICARE, SELFPAY ==
[2023-11-28 16:30] LABS: Abs Immature Grans 0.02 10^3/uL (0.0-0.06); Absolute Basophil Count 0.06 10^3/uL (0.0-0.2); Absolute Eosinophil Count 0.09 10^3/uL (0.0-0.7); Absolute Lymphocyte Count 2.18 10^3/uL (1.2-3.4); Absolute Monocyte Count 0.46 10^3/uL (0.1-0.8); Absolute Neutrophil Count 4.03 10^3/uL (1.2-6.7); Basophils % 0.9; Eosinophils % 1.3; HCT 36.9 % (36.0-46.0); HGB 12.9 g/dL (11.2-15.7); Immature Grans % 0.3; Lymphocytes % 31.9; MCH 27.9 pg (27.0-33.0); MCV 80 fL (80-95); MPV 8.9 fL (8.0-11.0); Monocytes % 6.7; Neutrophils % 58.9; Platelet Count 250 10^3/uL (130-400); RBC 4.63 10^6/uL (3.93-5.22); RDW 14.8 % (11.7-14.6); RDW-SD 42.9 fL; WBC 6.84 10^3/uL (4.4-10.8)
[2023-11-28 17:20] LABS: Anion Gap 8.3 mmol/L (3-11); BUN 19 mg/dL (7-18); CO2 27.7 mmol/L (21.0-32.0); CREATININE 1.1 mg/dL (0.55-1.02); Calcium 9.1 mg/dL (8.5-10.1); Chloride 103 mmol/L (98-107); Estimated GFR 55.76 (mL/min/1.73m2); Ferritin 311 ng/mL (8-252); Glucose 101 mg/dL (74-106); Potassium 3.7 mmol/L (3.5-5.1); Sodium 139 mmol/L (136-145); TSH (W/Ref FT4) 0.79 uIU/mL (0.36-3.74); Vitamin B12 1187 pg/mL (193-986)
[2023-11-28 22:47] LABS: Lab Add On Test DONE
[2023-11-28 23:05] LABS: ALT 19 U/L (14-59); AST 18 U/L (15-37); Albumin 3.7 g/dL (3.4-5.0); Alkaline Phosphatase 67 U/L (46-116); Bilirubin, Direct 0.1 mg/dL (0.0-0.2); Bilirubin, Total 0.5 mg/dL (0.2-1.0); Total Protein 6.5 g/dL (6.4-8.2)
[2023-11-29 18:36] LABS: Hepatitis C Ab w Rflx HCV PCR Negative (Negative)
== END 2023-11-28 18:02 | disposition home or self-care (01) ==
LOC: LBO 18:01
PROVIDERS: PCP Nurse Practitioner Family; Visit Provider Nurse Practitioner Family
DX: E53.8 Deficiency of other specified B group vitamins (principal); I10 Essential (primary) hypertension; E78.5 Hyperlipidemia, unspecified; Z11.59 Encounter for screening for other viral diseases
CPT/HCPCS: 36415; 80048; 80076; 86803; 82607; 82728; 84443; 85025

== ENCOUNTER → 2024-02-06 01:40 | Outpatient (CLI) | payer MEDICARE, SELFPAY ==
--- NOTE | 2024-02-06 07:00 | DI.RAD_ITS ---
Exam(s) XR HAND RT COMPLETE EXAM: XR HAND RT COMPLETE CLINICAL HISTORY: right 3rd and 4th mcp pain and swelling M79.641 PAIN RT HAND. TECHNIQUE: 2D digital imaging was performed of the right hand. Three images were obtained. AP, late ral and oblique views were obtained. COMPARISON: CR RIGHT WRIST COMPLETE from 10/19/2016 CR XR THUMB RT from 09/15/2022 FINDINGS: BONES: No acute fracture is present. No bony destructive lesion is seen. There is been resection of t he trapezium. There are few tiny well corticated osseous densities in the bed of the trapezium which appear chronic. JOINTS: No dislocation present. Mild degenerative changes are seen particularly at the interphalangea l joints of the fingers characterized by joint space narrowing and osteophytes. SOFT TISSUE: There is soft tissue swelling of the 3rd and 4th fingers. No radiopaque foreign bodies are seen. IMPRESSION: Soft tissue swelling of the 3rd and 4th fingers. No radiopaque foreign body, fracture or dislocation is present. DATA REPOSITORY: RADIATION DOSE DELIVERED:
== END ==
PROVIDERS: PCP Nurse Practitioner Family; Visit Provider Nurse Practitioner Family
DX: M79.641 Pain in right hand (principal)
CPT/HCPCS: 73130

== ENCOUNTER → 2024-03-27 12:57 | Outpatient (BNVA) | payer MEDICARE, SELFPAY | PROVIDERS: PCP Nurse Practitioner Family; Referring Provider Nurse Practitioner Family; Visit Provider Psychiatry & Neurology Neurology | DX: R25.1 Tremor, unspecified (principal); E53.8 Deficiency of other specified B group vitamins; G62.9 Polyneuropathy, unspecified | CPT/HCPCS: 99214 ==

== ENCOUNTER 2024-04-11 09:22 | Outpatient (CLI) | payer MEDICARE, SELFPAY ==
[2024-04-11 12:10] LABS: Abs Immature Grans 0.04 10^3/uL (0.0-0.06); Absolute Basophil Count 0.07 10^3/uL (0.0-0.2); Absolute Eosinophil Count 0.12 10^3/uL (0.0-0.7); Absolute Lymphocyte Count 1.98 10^3/uL (1.2-3.4); Absolute Monocyte Count 0.64 10^3/uL (0.1-0.8); Absolute Neutrophil Count 6.59 10^3/uL (1.2-6.7); Basophils % 0.7 %; Eosinophils % 1.3 %; HCT 41.5 % (36.0-46.0); HGB 13.8 g/dL (11.2-15.7); Immature Grans % 0.4 %; MCH 27.5 pg (27.0-33.0); MCHC 33.3 % (32.0-36.0); MCV 83 fL (80-95); MPV 9.5 fL (8.0-11.0); Monocytes % 6.8 %; Neutrophils % 69.8 %; Platelet Count 243 10^3/uL (130-400); RBC 5.01 10^6/uL (3.93-5.22); RDW 15.6 % (11.7-14.6); RDW-SD 46.5 fL; WBC 9.44 10^3/uL (4.4-10.8)
[2024-04-11 12:21] LABS: ALT 17 U/L (14-59); AST 17 U/L (15-37); Albumin 3.8 g/dL (3.4-5.0); Alkaline Phosphatase 61 U/L (46-116); Anion Gap 7.5 mmol/L (3-11); BUN 14 mg/dL (7-18); Bilirubin, Total 0.39 mg/dL (0.2-1.0); CO2 30.5 mmol/L (21.0-32.0); CREATININE 1.1 mg/dL (0.55-1.02); Calcium 9.8 mg/dL (8.5-10.1); Chloride 102 mmol/L (98-107); Estimated GFR 55.76 (mL/min/1.73m2); Glucose 99 mg/dL (74-106); Potassium 3.7 mmol/L (3.5-5.1); Sodium 140 mmol/L (136-145); Total Protein 6.7 g/dL (6.4-8.2)
[2024-04-11 12:23] LABS: C-Reactive Protein < 0.50 mg/dL (<or=0.5); ESR < 1 mm/hr (0-30)
[2024-04-12 15:51] LABS: Rheumatoid Factor <8.6 IU/mL (<12.0)
[2024-04-12 16:01] LABS: ANA Interpretation Negative (Negative)
== END 2024-04-11 09:23 | disposition home or self-care (01) ==
LOC: LOS 09:22
PROVIDERS: PCP Nurse Practitioner Family; Referring Provider Nurse Practitioner Family; Visit Provider Nurse Practitioner Family
DX: G62.9 Polyneuropathy, unspecified (principal); M19.049 Primary osteoarthritis, unspecified hand; R21 Rash and other nonspecific skin eruption; I10 Essential (primary) hypertension
CPT/HCPCS: 36415; 80053; 85652; 85025; 86038; 86140; 86431

== ENCOUNTER 2024-05-22 12:31 | Outpatient (CLI) | payer MEDICARE, SELFPAY ==
--- NOTE | 2024-05-22 12:38 | DI.RAD_ITS ---
Exam(s) XR HAND LT COMPLETE EXAM: XR HAND LT COMPLETE CLINICAL HISTORY: evaluate fx M79.642 PAIN LT HAND. TECHNIQUE: 2D digital imaging was performed. COMPARISON: CR XR HAND RT COMPLETE from 02/06/2024 FINDINGS: 3 views There are no fractures evident in the hand. Degenerative changes are noted the 1st carpometacarpal j oint. On the lateral view there is some degenerative changes in the DIP joints. There is also a gill cific density posteriorly at the level the wrist which possibly represents a fracture of the dorsal a spect probable triquetrum IMPRESSION: Probable dorsal triquetrum fracture at the level the wrist. Correlation with site of tenderness is r ecommended. DATA REPOSITORY: RADIATION DOSE DELIVERED:
--- NOTE | 2024-05-22 12:38 | DI.RAD_ITS ---
Exam(s) XR WRIST LT COMPLETE EXAM: XR WRIST LT COMPLETE CLINICAL HISTORY: evaluate fx M25.532 PAIN LT WRIST. TECHNIQUE: 2D digital imaging was performed. COMPARISON: No exams were available for comparison FINDINGS: 3 views On the lateral view there is a suggestion of the dorsally located fracture which is probably related to the triquetrum. There are no fractures distal radius and ulna nor significant ulnar variance. Sc aphoid and scapholunate distance unremarkable. Degenerative changes are noted at the 1st carpometaca rpal joint. No radiopaque foreign bodies. No gas in the soft tissues. IMPRESSION: Subtle fracture seen dorsally probably at the level of the triquetrum DATA REPOSITORY: RADIATION DOSE DELIVERED:
== END 2024-05-22 12:51 ==
PROVIDERS: PCP Nurse Practitioner Family; Visit Provider Nurse Practitioner Family
DX: M79.642 Pain in left hand (principal); M25.532 Pain in left wrist
CPT/HCPCS: 73110; 73130

== ENCOUNTER → 2024-06-04 09:24 | Outpatient (BNVA) | payer MEDICARE, SELFPAY | PROVIDERS: PCP Nurse Practitioner Family; Referring Provider Nurse Practitioner Family; Visit Provider Student in an Organized Health Care Education/Training Program | DX: M18.12 Unilateral primary osteoarthritis of first carpometacarpal joint, left hand (principal); V89.2XXA Person injured in unspecified motor-vehicle accident, traffic, initial encounter; S62.112A Displaced fracture of triquetrum [cuneiform] bone, left wrist, initial encounter for closed fracture | CPT/HCPCS: 99213 ==

== ENCOUNTER → 2024-08-02 11:02 | Outpatient (BNVA) | payer MEDICARE, SELFPAY | PROVIDERS: PCP Nurse Practitioner Family; Referring Provider Nurse Practitioner Family | DX: M18.12 Unilateral primary osteoarthritis of first carpometacarpal joint, left hand (principal); S62.112D Displaced fracture of triquetrum [cuneiform] bone, left wrist, subsequent encounter for fracture with routine healing; X58.XXXD Exposure to other specified factors, subsequent encounter | CPT/HCPCS: 99213 ==

== ENCOUNTER 2024-08-22 11:15 | Outpatient (CLI) | payer MEDICARE, SELFPAY ==
[2024-08-22 12:29] LABS: Abs Immature Grans 0.03 10^3/uL (0.0-0.06); Absolute Basophil Count 0.07 10^3/uL (0.0-0.2); Absolute Eosinophil Count 0.13 10^3/uL (0.0-0.7); Absolute Lymphocyte Count 1.64 10^3/uL (1.2-3.4); Absolute Monocyte Count 0.42 10^3/uL (0.1-0.8); Absolute Neutrophil Count 4.92 10^3/uL (1.2-6.7); Eosinophils % 1.8 %; HCT 41.1 % (36.0-46.0); HGB 13.7 g/dL (11.2-15.7); Immature Grans % 0.4 %; Lymphocytes % 22.7 %; MCH 27.6 pg (27.0-33.0); MCHC 33.3 % (32.0-36.0); MCV 83 fL (80-95); MPV 9.4 fL (8.0-11.0); Monocytes % 5.8 %; Neutrophils % 68.3 %; Platelet Count 223 10^3/uL (130-400); RBC 4.97 10^6/uL (3.93-5.22); RDW 14.4 % (11.7-14.6); RDW-SD 42.7 fL; WBC 7.21 10^3/uL (4.4-10.8)
[2024-08-22 12:33] LABS: ALT 22 U/L (14-59); AST 17 U/L (15-37); Alkaline Phosphatase 68 U/L (46-116); Anion Gap 6.9 mmol/L (3-11); BUN 11 mg/dL (7-18); Bilirubin, Total 0.45 mg/dL (0.2-1.0); C-Reactive Protein < 0.50 mg/dL (<or=0.5); CO2 32.1 mmol/L (21.0-32.0); Calcium 9.6 mg/dL (8.5-10.1); Chloride 101 mmol/L (98-107); Estimated GFR 62.13 (mL/min/1.73m2); Glucose 91 mg/dL (74-106); Potassium 3.6 mmol/L (3.5-5.1); Sodium 140 mmol/L (136-145); TSH (W/Ref FT4) 0.94 uIU/mL (0.36-3.74); Total Protein 6.9 g/dL (6.4-8.2)
[2024-08-22 12:35] LABS: ESR 2 mm/hr (0-30)
[2024-08-22 22:33] LABS: Rheumatoid Factor <8.6 IU/mL (<12.0)
[2024-08-23 08:26] LABS: Cyclic Citrullinated Peptide <2.5 U/mL (<5.0)
[2024-08-23 14:57] LABS: ANA Interpretation Negative (Negative)
== END 2024-08-22 11:16 | disposition home or self-care (01) ==
LOC: LOS 11:16
PROVIDERS: PCP Nurse Practitioner Family; Referring Provider Nurse Practitioner Family; Visit Provider Nurse Practitioner Family
DX: M19.049 Primary osteoarthritis, unspecified hand (principal); R53.82 Chronic fatigue, unspecified
CPT/HCPCS: 36415; 80053; 85652; 86200; 84443; 85025; 86038; 86140; 86431

== ENCOUNTER 2024-08-30 00:09 | Outpatient (CLI) | payer MEDICARE, SELFPAY ==
--- NOTE | 2024-08-30 07:52 | DI.US_ITS ---
Exam(s) US SOFT TISSUE HEAD OR NECK EXAM: US SOFT TISSUE HEAD OR NECK CLINICAL HISTORY: discolored nodular lesion of anteiror neck,L98.9. TECHNIQUE: Ultrasound was performed using standard protocol. COMPARISON: No exams were available for comparison FINDINGS: Sonographic assessment utilizing grayscale and color Doppler imaging was performed and targeted to th e area of clinical concern. No abnormality is identified in the skin or adjacent soft tissues. Nodules are noted in the right lo be of the thyroid, partially included on the exam. Thyroid ultrasound recommended. IMPRESSION: No sonographic abnormality is demonstrated in the area of clinical concern. Incidentally detected right thyroid nodules. Thyroid ultrasound recommended. DATA REPOSITORY:
== END 2024-08-30 00:29 ==
PROVIDERS: PCP Nurse Practitioner Family; Visit Provider Nurse Practitioner Family
DX: L98.9 Disorder of the skin and subcutaneous tissue, unspecified (principal)
CPT/HCPCS: 76536

== ENCOUNTER 2024-09-06 02:27 | Outpatient (CLI) | payer MEDICARE, SELFPAY ==
--- NOTE | 2024-09-06 12:30 | DI.US_ITS ---
APPROVED REPORT EXAM: Comprehensive 2D, Doppler, and color-flow Echocardiogram Patient Location: Out-Patient Networking Engineer: Stephanie Blue RDCS (AE) Indications: Fatigue, ? valve disease, ?sneaky heart failure, Systolic murmur Other Information Study Quality: Adequate Conclusion Normal left ventricular wall thickness and chamber size. Ejection fraction is 60%. Wall motion is n ormal Normal right ventricular size and function Both atria are normal in size Mild mitral annular calcification There is no additional structural or hemodynamically significant valvular disease Estimated right ventricular systolic pressure is 18 mmHg Wall motion Left Ventricle The left ventricle is normal size. The left ventricular systolic function is normal. The left ventric ular ejection fraction is within the normal range. There is normal left ventricular wall thickness. T here is normal LV segmental wall motion. There is no ventricular septal defect visualized. LVEF is 60 %. Right Ventricle The right ventricle is normal size. The right ventricular systolic function is normal. Atria The left atrium size is normal. The right atrium size is normal. The interatrial septum is intact wit h no evidence for an atrial septal defect. Aortic Valve The aortic valve is normal in structure. Aortic valve is trileaflet. There is no aortic valvular sten osis. No aortic regurgitation is present. Mitral Valve Mild mitral annular calcification. No evidence of mitral valve stenosis. Trace mitral regurgitation. Tricuspid Valve The tricuspid valve is normal in structure. There is no tricuspid valve stenosis. Trace tricuspid reg urgitation. The RVSP is 17.8_ mmHg. Pulmonic Valve The pulmonary valve is normal in structure. There is no pulmonic valvular stenosis. Mild pulmonic reg urgitation. Great Vessels The aortic root is normal in size. Ascending aorta is not well visualized. Aortic arch is not well vi sualized. IVC is normal in size and collapses >50% with inspiration. Pericardium There is no pericardial effusion. 2D Dimensions IVSD d PLAX 0.84 cm F: 0.6-1.0 Ao Root d 3.25 cm F: 2.7 - 3.3 LVPW d PLAX 0.84 cm F: 0.6 - 1.0 LVID d PLAX 4.30 cm F: 3.8 - 5.2 LVDs 2.91 cm F: 2.2 - 3.5 LV EF Teichholz 60.1 % FS 31.75 % LV EDV (Teich) 81.7 mL LV ESV (Teich) 32.6 mL M-Mode TAPSE 2.00 cm (M/F) >1.7 Auto EF LV EDV A4C 74.5 mL LV EDV A2C 91.1 mL LV EDV BP 82.7 mL LV ESV A4C 30.8 mL LV ESV A2C 37.9 mL LV ESV BP 34.6 mL LVEF(%) A4C 58.6 % LVEF(%) A2C 58.4 % LVEF(%) BP 58.2 % LV SV A4C 43.6 ml LV SV A2C 53.2 ml LV SV BP 48.1 ml LV CO A4C 2.8 L/min LV CO A2C 3.4 L/min LV CO BP 3.1 L/min HR A4C 64.99 BPM HR A2C 64.29 BPM LV EDV Index (BP) LA Volume LA Length A4C 4.7 cm LA Length A2C 4.8 cm LA Area A4C s 14.69 cm2 LA Area A2C s 15.88 cm2 LA Vol A4C A-L 39.29 mL LA Vol A2C A-L 44.88 mL LA Vol Biplane A-L 42.5 mL LA Vol/BSA A4C A-L LA Vol/BSA A2C A-L LA Vol/BSA BP A-L 27.9 mL/m2 LA Vol A4C MOD 37.6 mL LA Vol A2C MOD 41.9 mL LA Vol BP MOD 40.0 mL RA Volume RA Area A4C 8.1 cm2 RA ESV A4C (A-L) 16.8mL RA Vol/BSA A4C A-L RA Length A4C 3.3 cm RA ESV A4C (MOD) 16.6mL LV Diastology MV E' medial 0.092 (>0.07 m/s) MV E Vmax 0.99 (0.4-1.3 m/s) MV E/E' MED 10.74 (<14) MV A Vmax 0.85 (0.4-1.3 m/s) E/A Ratio 1.2 Aortic Valve AoV Vmax 1.09 m/s LVOT Vmax 0.97 m/s AoV Peak Grad 4.8 mmHg LVOT Peak Grad 3.7 mmHg AoV Area (Vmax) 2.69 cm2 LVOT VTI 0.210 m AoV VTI 0.241 m LVOT Mean Grad 1.8 mmHg AoV Mean Damian. 0.68 m/s LVOT SV 63.89 mL AoV Mean Grad 2.2 mmHg LVOT Diam s 1.95 cm AoV Area (VTI) 2.65 cm2 AV Regurg Peak Gr. 4.77 mmHg Velocity Ratio 0.89 Mitral Valve MV DT 160 (160-240 msec) MV Vmax TIPS 0.75 m/s MV Mean Grad 1.1 (<2mmHg) MV VTI 0.264 m Pulmonary Valve PV Vmax 0.78 (0.5-1.5 m/s) RVOT Vmax 0.81 m/s PV Peak Grad 2.4 mmHg RVOT Peak Gr. 2.6 mmHg PV Mean Damian 0.61 m/s RVOT VTI 0.205 m PV Mean Grad 1.6 mmHg RVOT Mean Gr. 1.3 mmHg Tricuspid Valve RA Pressure 3.00 mmHg TR Vmax 1.92 m/s TV S' 0.11 m/s TR Peak Grad 14.7 mmHg RVSP (TR) 17.8 mmHg
== END 2024-09-06 02:47 ==
PROVIDERS: PCP Nurse Practitioner Family; Visit Provider Internal Medicine Cardiovascular Disease
DX: R01.1 Cardiac murmur, unspecified (principal); R53.82 Chronic fatigue, unspecified
CPT/HCPCS: 93306; 94060; 94726; 94729

== ENCOUNTER 2024-09-06 04:10 | Outpatient (CLI) | payer MEDICARE, SELFPAY ==
[2024-09-06] MEDS: Inhaler, Assist Device 1 EACH MC (15:10)
[2024-09-06] MEDS: Levalbuterol HFA 15 GM INH 4 PUFF IH (15:11)
--- NOTE | 2024-09-25 12:53 | W.PFT ---
Date of service: 09/06/24 Time of Service: 13:43 Pulmonary Function Test Result Indications: Allergies Interpretation Spirometry: There is no airflow limitation. No bronchodilator response. Lung Volumes: Likely normal lung volumes Diffusion Capacity: Normal diffusion Airway Pressure: Normal airways resistance Impression Normal pulmonary function testing Clinical Correlation therefore is recommended.
== END 2024-09-06 04:11 | disposition home or self-care (01) ==
LOC: RT 04:10
PROVIDERS: PCP Nurse Practitioner Family; Visit Provider Student in an Organized Health Care Education/Training Program
DX: J45.909 Unspecified asthma, uncomplicated (principal); F17.210 Nicotine dependence, cigarettes, uncomplicated
CPT/HCPCS: 94060; 94726; 94729

== ENCOUNTER 2024-10-02 01:28 | Outpatient (CLI) | payer MEDICARE, SELFPAY ==
--- NOTE | 2024-10-02 07:33 | DI.US_ITS ---
Exam(s) US THYROID EXAM: US THYROID CLINICAL HISTORY: thyroid nodules seen on neck ultrasound,e04.1. TECHNIQUE: Ultrasound thyroid performed using standard protocol. COMPARISON: No exams were available for comparison FINDINGS: ISTHMUS: 1.5 mm RIGHT LOBE: Size: 5 x 1.7 x 1.5 cm Echogenicity: Normal. Vascularity: Normal. Nodules: There is a 1.6 x 0.8 x 1.0 cm solid isoechoic nodule in the mid to lower pole of the right t hyroid gland. There are punctate echogenic foci seen. This is consistent with a TI rads level 4 nod ule. Due to its size, FNA is recommended. There are 2 other discrete nodule seen in the right lobe. However, due to the characteristics and sizes, neither nodule warrants follow-up or FNA. LEFT LOBE: Size: 4.6 x 1.6 x 1.3 cm Echogenicity: Normal. Vascularity: Normal. Nodules: None. OTHER FINDINGS: None. IMPRESSION: 1.6 x 0.8 x 1.0 cm right thyroid nodule. Due to its size and TI rads level, FNA is recommended. DATA REPOSITORY:
== END 2024-10-02 01:48 ==
LOC: DI 01:28
PROVIDERS: PCP Nurse Practitioner Family; Visit Provider Nurse Practitioner Family
DX: E04.1 Nontoxic single thyroid nodule (principal)
CPT/HCPCS: 76536

== ENCOUNTER 2024-11-07 02:19 | Outpatient (CLI) | payer MEDICARE, SELFPAY ==
[2024-11-07 11:53] LABS: Abs Immature Grans 0.04 10^3/uL (0.0-0.06); Absolute Basophil Count 0.05 10^3/uL (0.0-0.2); Absolute Eosinophil Count 0.05 10^3/uL (0.0-0.7); Absolute Lymphocyte Count 1.29 10^3/uL (1.2-3.4); Absolute Monocyte Count 0.46 10^3/uL (0.1-0.8); Absolute Neutrophil Count 7.17 10^3/uL (1.2-6.7); Basophils % 0.6 %; Eosinophils % 0.6 %; HCT 39.5 % (36.0-46.0); HGB 13.1 g/dL (11.2-15.7); Immature Grans % 0.4 %; Lymphocytes % 14.2 %; MCH 27.7 pg (27.0-33.0); MCHC 33.2 % (32.0-36.0); MCV 84 fL (80-95); MPV 8.2 fL (8.0-11.0); Monocytes % 5.1 %; Neutrophils % 79.1 %; Platelet Count 231 10^3/uL (130-400); RBC 4.73 10^6/uL (3.93-5.22); RDW 17.2 % (11.7-14.6); RDW-SD 50.2 fL; WBC 9.06 10^3/uL (4.4-10.8)
[2024-11-07 12:05] LABS: ESR < 1 mm/hr (0-30)
[2024-11-07 12:25] LABS: ALT 26 U/L (14-59); AST 14 U/L (15-37); Albumin 3.8 g/dL (3.4-5.0); Alkaline Phosphatase 55 U/L (46-116); Anion Gap 5.7 mmol/L (3-11); BUN 16 mg/dL (7-18); Bilirubin, Total 0.8 mg/dL (0.2-1.0); CO2 31.3 mmol/L (21.0-32.0); CREATININE 1.1 mg/dL (0.55-1.02); Calcium 9.8 mg/dL (8.5-10.1); Chloride 101 mmol/L (98-107); Estimated GFR 55.42 (mL/min/1.73m2); Glucose 116 mg/dL (74-106); Sodium 138 mmol/L (136-145); Total Protein 6.5 g/dL (6.4-8.2)
[2024-11-07 12:33] LABS: C-Reactive Protein < 0.50 mg/dL (<or=0.5)
== END 2024-11-07 02:20 | disposition home or self-care (01) ==
LOC: LBO 02:20
PROVIDERS: PCP Nurse Practitioner Family; Visit Provider Student in an Organized Health Care Education/Training Program
DX: M06.00 Rheumatoid arthritis without rheumatoid factor, unspecified site (principal); R71.8 Other abnormality of red blood cells; Z79.899 Other long term (current) drug therapy; R05.3 Chronic cough; R91.8 Other nonspecific abnormal finding of lung field; R53.81 Other malaise; R53.83 Other fatigue
CPT/HCPCS: 36415; 80053; 85652; 85025; 86140

== ENCOUNTER 2024-11-13 00:33 | Outpatient (CLI) | payer MEDICARE, SELFPAY ==
--- NOTE | 2024-11-13 06:45 | DI.US_ITS ---
Exam(s) US NEEDLE LOCAL OTHER WO RAD EXAM: Thyroid nodule meeting criteria for biopsy,e04.1 COMPARISON: No exams were available for comparison TECHNIQUE: Ultrasound performed using standard protocol. FINDINGS: Sonography was provided for Dr. Redd during the performance of a thyroid nodule biopsy. Please re dave to the procedure report for complete details. DATA REPOSITORY:
--- NOTE | 2024-11-13 11:30 | PAPNONF_PTH ---
PATIENT: Mojgan Wilson LOC: [facility] U#:[id number] AGE/SX: 64/F ROOM: RE11/13/[address]: Cory Redd MD : [id number] BED: DIS: 11/13/2024 SPEC #: [id number] RECD: 11/13/24 12:48 STATUS: TIANA RETyron #: [id number] ARSENIO: 11/13/24 11:[address]: Cory Redd DEPT: [facility] Cytology RECD BY: Lisette Gonsalves ENTERED: 11/13/24 12:49 SP TYPE: MAEVE PORTER DR: Clarissa Maldonado, DEVORA Tissues: 1 - BODY FLUID CYTO-FINE NEEDLE ASPIRATE-[facility] Procedures: BODY FLUID CYTO-FINE NEEDLE ASPIRATE-[facility] Comments: [id number] (PATH FNA CONSULT) (REFRIGERATED)
--- NOTE | 2024-11-13 12:05 | W.PROCNOTE ---
Date of service: 11/13/24 Time of Service: 12:05 Procedure Note Date of procedure: 11/13/24 Procedure: Ultrasound-guided FNA, right thyroid nodule, pathology present Surgeon/Proceduralist/Physician: Cory Redd Procedure Diagnosis: Right sided TR four 1.8 cm thyroid nodule Procedure Indications: The patient has a above lesion. This meets criteria for biopsy. Options were explained to the patient regarding further management. She wished to proceed with FNA. Risks and benefits were discussed at length. Consent was obtained in written form. The below was then performed. Procedure Description: The patient was positioned in supine position and prepped and draped in appropriate fashion. Her neck was slightly extended. Ultrasound was used to localize the nodule on the right and then 1% lidocaine with 1/100,000 epinephrine injected in the skin and subcutaneous tissues overlying the thyroid nodule. A 25-gauge needle was then carefully introduced into the thyroid nodule, and passed repeatedly through the nodule to obtain a sample. A second pass was made to ensure adequate cellularity. After ensuring adequate cellularity by having pathology evaluate for adequate cellularity, 2 additional passes were made for potential Afirma testing. There is no significant bleeding. After ensuring adequate hemostasis, I offered to apply a Band-Aid but the patient refused. As such, the patient was allowed to sit, stand, and ambulate. Her vital signs remained stable throughout the procedure. She will call with any signs of infection. She will avoid any heavy lifting or straining for the next day. She may use ibuprofen or Tylenol for any discomfort. She will call if she does not hear from me within 1 week's time with regard to the pathology results. She had no further questions. She is comfortable with the plan.
== END 2024-11-13 00:53 ==
LOC: DI 00:34
PROVIDERS: PCP Nurse Practitioner Family; Visit Provider Otolaryngology
DX: E04.1 Nontoxic single thyroid nodule (principal)
CPT/HCPCS: 10005; 76942; 88104

== ENCOUNTER 2024-11-21 02:02 | Outpatient (CLI) | payer MEDICARE, SELFPAY ==
[2024-11-21 12:09] LABS: Abs Immature Grans 0.03 10^3/uL (0.0-0.06); Absolute Basophil Count 0.08 10^3/uL (0.0-0.2); Absolute Eosinophil Count 0.06 10^3/uL (0.0-0.7); Absolute Lymphocyte Count 1.52 10^3/uL (1.2-3.4); Absolute Monocyte Count 0.38 10^3/uL (0.1-0.8); Basophils % 0.9 %; Eosinophils % 0.7 %; Immature Grans % 0.4 %; Lymphocytes % 17.7 %; MCH 28.3 pg (27.0-33.0); MCHC 33.3 % (32.0-36.0); MCV 85 fL (80-95); MPV 8.9 fL (8.0-11.0); Monocytes % 4.4 %; Neutrophils % 75.9 %; Platelet Count 264 10^3/uL (130-400); RBC 4.95 10^6/uL (3.93-5.22); RDW 17.7 % (11.7-14.6); RDW-SD 52.7 fL; WBC 8.57 10^3/uL (4.4-10.8)
[2024-11-21 12:22] LABS: ALT 43 U/L (14-59); AST 27 U/L (15-37); Albumin 3.9 g/dL (3.4-5.0); Alkaline Phosphatase 57 U/L (46-116); Anion Gap 8.3 mmol/L (3-11); BUN 11 mg/dL (7-18); Bilirubin, Total 0.4 mg/dL (0.2-1.0); CO2 30.7 mmol/L (21.0-32.0); Calcium 9.7 mg/dL (8.5-10.1); Chloride 103 mmol/L (98-107); Estimated GFR 62.13 (mL/min/1.73m2); Glucose 103 mg/dL (74-106); Potassium 3.6 mmol/L (3.5-5.1); Sodium 142 mmol/L (136-145); Total Protein 6.7 g/dL (6.4-8.2)
== END 2024-11-21 02:03 | disposition home or self-care (01) ==
LOC: LOS 02:02
PROVIDERS: PCP Nurse Practitioner Family; Visit Provider Student in an Organized Health Care Education/Training Program
DX: M05.79 Rheumatoid arthritis with rheumatoid factor of multiple sites without organ or systems involvement (principal); N18.9 Chronic kidney disease, unspecified; M06.00 Rheumatoid arthritis without rheumatoid factor, unspecified site; E04.1 Nontoxic single thyroid nodule; J32.9 Chronic sinusitis, unspecified
CPT/HCPCS: 36415; 80053; 85025

== ENCOUNTER 2024-11-21 13:42 | Outpatient (REF) | payer MEDICARE, SELFPAY ==
[2024-11-21 12:11] LABS: Bilirubin Negative (Negative); Blood Negative (Negative); Clarity Clear (Clear); Glucose Negative (Negative); Ketones Negative (Negative); Leukocyte Esterase Negative (Negative); Nitrite Negative (Negative); Specific Gravity 1.015 (1.005-1.025); Urobilinogen 0.2 mg/dL (Up to 0.2)
[2024-11-21 12:42] LABS: COMMENT (LAB VIEW ONLY) 22.41 mg/dL; Microalb ug/mg Crea 6.7 ug/mg Cr
== END 2024-11-21 13:43 | disposition home or self-care (01) ==
LOC: LBN 13:42
PROVIDERS: PCP Nurse Practitioner Family; Visit Provider Nurse Practitioner Family
DX: N18.9 Chronic kidney disease, unspecified (principal)
CPT/HCPCS: 81003; 82043; 82570

== ENCOUNTER 2025-01-24 01:59 | Outpatient (CLI) | payer MEDICARE, SELFPAY ==
[2025-01-24 12:39] LABS: Abs Immature Grans 0.02 10^3/uL (0.0-0.06); Absolute Basophil Count 0.09 10^3/uL (0.0-0.2); Absolute Eosinophil Count 0.22 10^3/uL (0.0-0.7); Absolute Lymphocyte Count 1.91 10^3/uL (1.2-3.4); Absolute Monocyte Count 0.49 10^3/uL (0.1-0.8); Absolute Neutrophil Count 4.33 10^3/uL (1.2-6.7); Basophils % 1.3 %; Eosinophils % 3.1 %; HCT 38.1 % (36.0-46.0); HGB 13.1 g/dL (11.2-15.7); Immature Grans % 0.3 %; Lymphocytes % 27.1 %; MCH 29.5 pg (27.0-33.0); MCHC 34.4 % (32.0-36.0); MCV 86 fL (80-95); MPV 9.6 fL (8.0-11.0); Monocytes % 6.9 %; Neutrophils % 61.3 %; Platelet Count 245 10^3/uL (130-400); RBC 4.44 10^6/uL (3.93-5.22); RDW 16.2 % (11.7-14.6); RDW-SD 50.5 fL; WBC 7.06 10^3/uL (4.4-10.8)
[2025-01-24 12:56] LABS: ALT 34 U/L (14-59); AST 20 U/L (15-37); Albumin 3.8 g/dL (3.4-5.0); Alkaline Phosphatase 57 U/L (46-116); Anion Gap 5.7 mmol/L (3-11); BUN 12 mg/dL (7-18); Bilirubin, Total 0.5 mg/dL (0.2-1.0); CO2 30.3 mmol/L (21.0-32.0); Calcium 9.2 mg/dL (8.5-10.1); Chloride 104 mmol/L (98-107); Creatine Kinase 68 U/L (26-192); Estimated GFR 62.13 (mL/min/1.73m2); Glucose 100 mg/dL (74-106); Potassium 4.1 mmol/L (3.5-5.1); Sodium 140 mmol/L (136-145); TSH (W/Ref FT4) 1.22 uIU/mL (0.36-3.74); Total Protein 6.5 g/dL (6.4-8.2)
[2025-01-26 10:12] LABS: Aldolase 3.6 U/L (<7.7)
== END 2025-01-24 02:00 | disposition home or self-care (01) ==
LOC: LOS 01:59
PROVIDERS: PCP Nurse Practitioner Family; Visit Provider Student in an Organized Health Care Education/Training Program
DX: Z79.899 Other long term (current) drug therapy (principal); M06.00 Rheumatoid arthritis without rheumatoid factor, unspecified site; M79.641 Pain in right hand; M79.642 Pain in left hand; M79.671 Pain in right foot; M79.672 Pain in left foot; D84.821 Immunodeficiency due to drugs; M62.81 Muscle weakness (generalized)
CPT/HCPCS: 36415; 80053; 82550; 82085; 84443; 85025

== ENCOUNTER → 2025-03-27 09:42 | Outpatient (BNVA) | payer MEDICARE, SELFPAY | PROVIDERS: PCP Nurse Practitioner Family; Visit Provider Psychiatry & Neurology Neurology | DX: R25.1 Tremor, unspecified (principal); E53.8 Deficiency of other specified B group vitamins; G62.9 Polyneuropathy, unspecified; I10 Essential (primary) hypertension; J44.89 Other specified chronic obstructive pulmonary disease | CPT/HCPCS: 99214 ==

== ENCOUNTER 2025-03-29 00:51 | Outpatient (CLI) | payer MEDICARE, SELFPAY ==
[2025-03-29 12:40] LABS: Abs Immature Grans 0.01 10^3/uL (0.0-0.06); HCT 40.1 % (36.0-46.0); HGB 13.7 g/dL (11.2-15.7); Immature Grans % 0.2 %; MCH 29.1 pg (27.0-33.0); MCHC 34.2 % (32.0-36.0); MCV 85 fL (80-95); MPV 10.0 fL (8.0-11.0); Platelet Count 228 10^3/uL (130-400); RBC 4.71 10^6/uL (3.93-5.22); RDW 14.5 % (11.7-14.6); RDW-SD 44.2 fL; WBC 6.26 10^3/uL (4.4-10.8)
[2025-03-29 12:48] LABS: Lab Add On Test DONE
[2025-03-29 13:15] LABS: ALT 28 U/L (14-59); AST 18 U/L (15-37); Albumin 3.8 g/dL (3.4-5.0); Alkaline Phosphatase 52 U/L (46-116); Anion Gap 8.1 mmol/L (3-11); BUN 13 mg/dL (7-18); Bilirubin, Total 0.4 mg/dL (0.2-1.0); CO2 29.9 mmol/L (21.0-32.0); Calcium 9.3 mg/dL (8.5-10.1); Chloride 106 mmol/L (98-107); Estimated GFR 70.51 (mL/min/1.73m2); Glucose 102 mg/dL (74-106); Potassium 3.8 mmol/L (3.5-5.1); Sodium 144 mmol/L (136-145); Total Protein 6.5 g/dL (6.4-8.2)
[2025-03-29 13:16] LABS: Calculated LDL 88 mg/dL (<100); Cholesterol 161 mg/dL (<200); Ferritin 298 ng/mL (8-252); HDL Cholesterol 64 mg/dL (>or=50); Triglyceride 46 mg/dL (<150)
== END 2025-03-29 00:52 | disposition home or self-care (01) ==
PROVIDERS: PCP Nurse Practitioner Family; Visit Provider Student in an Organized Health Care Education/Training Program
DX: M06.00 Rheumatoid arthritis without rheumatoid factor, unspecified site (principal); E78.5 Hyperlipidemia, unspecified
CPT/HCPCS: 36415; 80053; 80061; 82728; 85025

== ENCOUNTER 2025-04-23 15:13 | Emergency (ER) | payer MEDICARE, SELFPAY ==
[2025-04-23 15:17] VITALS: BP 158/81; PULSE 73; RESP 20; TEMP 36.7; O2SAT 93
--- NOTE | 2025-04-23 15:24 | W.ED.GENAD ---
Discharge Plan Disposition Patient Disposition: Home Condition: Good Discharge Details Clinical Impression: Fracture of fourth metacarpal bone of left hand Primary Care Provider: Clarissa Maldonado ED Provider: Marcos Josue [place] Meds and New Rx's Prescriptions: Continued levocetirizine [Xyzal] 5 mg tablet 5 mg PO DAILY PRN (Reason: allergy symptoms) Qty: 90 3RF mometasone 50 mcg/actuation spray,non-aerosol 1 spray intranasal BID PRN (Reason: nasal congestion) Qty: 17 3RF Rx Instructions: administer into each nostril amoxicillin-pot clavulanate 875-125 mg tablet 1 tab PO Q12H Qty: 28 0RF Rx Instructions: Take 1 tablet twice a day for 14 days ipratropium-albuterol 0.5 mg-3 mg(2.5 mg base)/3 mL solution for nebulization 3 ml inhalation Q8H PRN (Reason: wheezing) Qty: 90 0RF triamcinolone acetonide 0.1 % cream 1 applic topical DAILY PRN (Reason: dermatitis) Qty: 80 0RF lorazepam 0.5 mg tablet 0.5 mg PO BID PRN for anxiety Qty: 60 0RF buspirone 15 mg tablet 15 mg PO BID Qty: 180 3RF cholecalciferol (vitamin D3) 125 mcg (5,000 unit) tablet 5,000 unit PO DAILY Qty: 90 3RF adalimumab 40 mg/0.4 mL pen injector kit 40 mg subcut Q2W Patient Comments: calcium carbonate 600 mg calcium (1,500 mg) tablet 600 mg PO BID Qty: 180 3RF amlodipine 5 mg tablet 5 mg PO DAILY Qty: 90 3RF clotrimazole 1 % cream 1 applic topical BID Qty: 45 0RF Rx Instructions: Apply to affected areas twice a day for 2wks or until resolution cyclosporine [Restasis] 0.05 % dropperette 1 drp ophthalmic (eye) Q12H leucovorin calcium 10 mg tablet 10 mg PO ONCE Rx Instructions: take one hour after taking methotrexate pregabalin 100 mg capsule 100 mg PO DAILY AM Qty: 90 1RF Rx Instructions: in addition to 150mg HS pregabalin 150 mg capsule 150 mg PO QHS Qty: 90 1RF Rx Instructions: along with 100mg in the am lidocaine 5 % cream 1 applic topical QID PRN (Reason: pain) Qty: 30 5RF Rx Instructions: Apply small amount to feet as needed for pain cyanocobalamin (vitamin B-12) 1,000 mcg/mL solution 1,000 mcg IM .[id number] Qty: 10 3RF folic acid 1 mg tablet 3 mg PO DAILY methotrexate sodium 2.5 mg tablet 12.5 mg PO QWEEK loratadine 10 mg tablet 10 mg PO DAILY levalbuterol tartrate 45 mcg/actuation HFA aerosol inhaler 2 inh IH Q4H PRN (Reason: shortness of breath or wheezing) Qty: 15 3RF trazodone 50 mg tablet 50 - 100 mg PO QHS PRN (Reason: sleep) Qty: 90 2RF potassium chloride 20 mEq tablet extended release 20 meq PO DAILY Qty: 90 3RF rosuvastatin 10 mg tablet 10 mg PO DAILY Qty: 90 3RF hydrochlorothiazide 25 mg tablet 25 mg PO DAILY Qty: 90 3RF (DME) TDX Luer Lock Syr-needle 3 mL 25 gauge x 1 syringe See Rx Instructions .Route Qty: 100 3RF Rx Instructions: For Vitamin B12 injections Q 2 weeks ferrous sulfate 325 mg (65 mg iron) tablet 325 mg PO Q OTHER DAY Qty: 50 3RF leucovorin calcium 5 mg tablet 5 mg PO .weekly Patient Comments: TAKE ONE TABLET BY MOUTH ONCE WEEKLY 12 HOURS AFTER METHOTREXATE DOSE TO COUNTERACT METHOTREXATE SIDE EFFECTS Discharge Instructions Instructions: Hand Fracture ED, Splint Care ED Additional Instructions: You have a fracture of one of the bones in your hand which should heal with time and require no procedures. Leave the splint on until follow-up with orthopedics. Keep your hand elevated. If any evidence of swelling involving your ring finger you need to return to the ED at once. Should also return if you develop any type of hand weakness, discoloration, worsening numbness. You may use acetaminophen for pain. Ice on and off over the first couple of days will also help with pain and swelling. Referrals: [facility] [Provider Group] Discharge Data Discharge Date/Time-TO BE ENTERED AT DEPARTURE: 04/23/25 17:19 HPI General Mode of arrival: ambulatory. Date/Time Provider Initiated Documentation: 04/23/25 15:24. Limitations to Documentation: no limitations. Information obtained by: patient and RN notes reviewed. HPI Narrative: Patient presents to ED with left hand injury. Patient was walking her dog with the leash wrapped around her left hand. Dog pulled quickly causing immediate pain as well as a snapping sensation in her hand. Pain has increased some since the injury. She has neuropathy involving her hands but does not feel that the numbness and tingling is any worse than baseline. She is able to extend her fingers and make a fist. She is ambidextrous but feels she is more [id number]. No other injury or complaint. Related Data Home Medications ?Medication ?Instructions ?Recorded ?Confirmed ipratropium 0.5 mg-albuterol 3 mg 3 ml inhalation Q8H PRN wheezing 05/09/23 04/23/25 (2.5 mg base)/3 mL nebulization #90 mL soln triamcinolone acetonide 0.1 % 1 applic topical DAILY PRN 06/06/23 04/23/25 topical cream dermatitis #80 grams loratadine 10 mg tablet 10 mg PO DAILY 11/30/23 04/23/25 levocetirizine 5 mg tablet (Xyzal) 5 mg PO DAILY PRN allergy symptoms 02/03/24 04/23/25 #90 tabs mometasone 50 mcg/actuation nasal 1 spray intranasal BID PRN nasal 02/20/24 04/23/25 spray congestion #17 grams clotrimazole 1 % topical cream 1 applic topical BID #45 grams 03/28/24 04/23/25 lorazepam 0.5 mg tablet 0.5 mg PO BID PRN for anxiety #60 05/03/24 04/23/25 tab-caps levalbuterol tartrate 45 2 inh inhalation Q4H PRN shortness 06/26/24 04/23/25 mcg/actuation aerosol inhaler of breath or wheezing #15 grams cyanocobalamin (vitamin B-12) 1,000 mcg IM .[id number] #10 mL 07/23/24 04/23/25 1,000 mcg/mL injection solution trazodone 50 mg tablet 50 - 100 mg (1 - 2 x 50 mg) PO QHS 10/15/24 04/23/25 PRN sleep #90 tabs potassium chloride 20 mEq 20 meq PO DAILY #90 tabs 10/17/24 04/23/25 tablet,extended release rosuvastatin 10 mg tablet 10 mg PO DAILY #90 tabs 10/29/24 04/23/25 hydrochlorothiazide 25 mg tablet 25 mg PO DAILY #90 tabs 11/21/24 04/23/25 syringe with needle 3 mL 25 gauge #100 ea 12/18/24 04/23/25 x 1 (TDX Luer Lock Syringe with needle) cyclosporine 0.05 % eye drops in a 1 drp ophthalmic (eye) Q12H 03/27/25 04/23/25 dropperette (Restasis) folic acid 1 mg tablet 3 mg PO DAILY 03/27/25 04/23/25 leucovorin calcium 10 mg tablet 10 mg PO ONCE 03/27/25 04/23/25 lidocaine 5 % topical cream 1 applic topical QID PRN pain #30 03/27/25 04/23/25 grams methotrexate sodium 2.5 mg tablet 12.5 mg PO QWEEK 03/27/25 04/23/25 pregabalin 100 mg capsule 100 mg PO DAILY AM #90 caps 03/27/25 04/23/25 pregabalin 150 mg capsule 150 mg PO QHS #90 caps 03/27/25 04/23/25 adalimumab 40 mg/0.4 mL 40 mg subcut Q2W 03/29/25 04/23/25 subcutaneous pen kit amlodipine 5 mg tablet 5 mg PO DAILY #90 tabs 03/29/25 04/23/25 buspirone 15 mg tablet 15 mg PO BID #180 tabs 03/29/25 04/23/25 calcium carbonate 600 mg PO BID #180 tabs 03/29/25 04/23/25 cholecalciferol (vitamin D3) 125 5,000 unit PO DAILY #90 tabs 03/29/25 04/23/25 mcg (5,000 unit) tablet ferrous sulfate 325 mg (65 mg 325 mg PO Q OTHER DAY #50 tabs 04/01/25 04/23/25 iron) tablet amoxicillin 875 mg-potassium 1 tab PO Q12H #28 tabs 04/16/25 04/23/25 clavulanate 125 mg tablet leucovorin calcium 5 mg tablet 5 mg PO .weekly 04/23/25 04/23/25 Previous Rx's ?Medication ?Instructions ?Recorded ipratropium 0.5 mg-albuterol 3 mg 3 ml inhalation Q8H PRN wheezing 05/09/23 (2.5 mg base)/3 mL nebulization #90 mL soln triamcinolone acetonide 0.1 % 1 applic topical DAILY PRN 06/06/23 topical cream dermatitis #80 grams levocetirizine 5 mg tablet (Xyzal) 5 mg PO DAILY PRN allergy symptoms 02/03/24 #90 tabs mometasone 50 mcg/actuation nasal 1 spray intranasal BID PRN nasal 02/20/24 spray congestion #17 grams clotrimazole 1 % topical cream 1 applic topical BID #45 grams 03/28/24 lorazepam 0.5 mg tablet 0.5 mg PO BID PRN for anxiety #60 05/03/24 tab-caps levalbuterol tartrate 45 2 inh inhalation Q4H PRN shortness 06/26/24 mcg/actuation aerosol inhaler of breath or wheezing #15 grams cyanocobalamin (vitamin B-12) 1,000 mcg IM .[id number] #10 mL 07/23/24 1,000 mcg/mL injection solution trazodone 50 mg tablet 50 - 100 mg (1 - 2 x 50 mg) PO QHS 10/15/24 PRN sleep #90 tabs potassium chloride 20 mEq 20 meq PO DAILY #90 tabs 10/17/24 tablet,extended release rosuvastatin 10 mg tablet 10 mg PO DAILY #90 tabs 10/29/24 hydrochlorothiazide 25 mg tablet 25 mg PO DAILY #90 tabs 11/21/24 syringe with needle 3 mL 25 gauge #100 ea 12/18/24 x 1 (DivXpoint Luer Lock Syringe with needle) lidocaine 5 % topical cream 1 applic topical QID PRN pain #30 03/27/25 grams pregabalin 100 mg capsule 100 mg PO DAILY AM #90 caps 03/27/25 pregabalin 150 mg capsule 150 mg PO QHS #90 caps 03/27/25 amlodipine 5 mg tablet 5 mg PO DAILY #90 tabs 03/29/25 buspirone 15 mg tablet 15 mg PO BID #180 tabs 03/29/25 calcium carbonate 600 mg PO BID #180 tabs 03/29/25 cholecalciferol (vitamin D3) 125 5,000 unit PO DAILY #90 tabs 03/29/25 mcg (5,000 unit) tablet ferrous sulfate 325 mg (65 mg 325 mg PO Q OTHER DAY #50 tabs 04/01/25 iron) tablet amoxicillin 875 mg-potassium 1 tab PO Q12H #28 tabs 04/16/25 clavulanate 125 mg tablet Allergies Allergy/AdvReac Type Severity Reaction Status Date / Time doxycycline AdvReac Severe ABD Verified 04/23/25 15:20 CRAMPS/ CONSTIPATION nitrofurantoin (From AdvReac Intermediate Dizziness/L Verified 04/23/25 15:20 Macrobid) ighthead propranolol AdvReac Intermediate DEPRESSION Verified 04/23/25 15:20 albuterol AdvReac Mild tremors Verified 04/23/25 15:20 azithromycin AdvReac Mild Palpitation Verified 04/23/25 15:20 s meloxicam AdvReac Mild fluid Verified 04/23/25 15:20 retention erythromycin base AdvReac Unknown NAUSEA/VOMI Verified 04/23/25 15:20 TING General Stated Complaint: Orthopedic JOLENE: 4 Exam Narrative Exam Narrative: Const: Thin female in NAD. VS per triage. HEENT: NC/AT. Normal facial exam. Neck: Supple. Trachea midline. Lungs: Normal respiratory effort. Cor: RRR. Good radial pulses. Neuro: A+O x 3. Normal speech, mentation, gait. Cranial nerves II - XII grossly intact. No gross motor or sensory deficit. Ext: No C/C/E. Left hand with tenderness over the 4th and 5th metacarpal heads. Minimal swelling appreciated. No obvious deformity. Able to fully extend though with pain. Also able to close and make fist though with pain. Good capillary refill. Radial pulse intact. Course Vital Signs Vital signs: Vital Signs Temperature 98.1 F 04/23/25 15:17 Pulse 73 04/23/25 15:17 Respiratory Rate 04/23/25 15:17 Blood Pressure 158/81 H 04/23/25 15:17 Pulse Oximetry 93 04/23/25 15:17 Temperature 98.1 F 04/23/25 15:17 Temperature Source Oral 04/23/25 15:17 Pulse 73 04/23/25 15:17 Respiratory Rate 20 04/23/25 15:17 Blood Pressure 158/81 H 04/23/25 15:17 Blood Pressure Position Sitting 04/23/25 15:17 Pulse Oximetry 93 04/23/25 15:17 Oxygen Delivery Method Room Air 04/23/25 15:17 Oxygen Flow Rate 0 04/23/25 15:17 Pain Level 7 04/23/25 15:17 Procedure Orthopedic Splinting/Casting Date of Procedure: 04/23/25 Time of procedure: 17:00 Provider that performed the procedure: Marcos Josue Patient Consented: Verbally Side: left Upper Extremity Injury Location: forearm Upper Extremity Immobilizer: volar splint Medical Decision Making Patient presenting with left hand injury. Tenderness and mild swelling over the 4th and 5th metacarpal head area dorsally. Rings are present on the left ring finger but will need to be cut off due to RA involving PIP joint of that finger. There is no significant swelling involving the finger currently and she would really like to avoid removing the rings if possible. Will obtain x-ray first to identify any potential injuries before deciding whether rings should be removed prophylactically or not. Patient's x-ray of left hand reveals an oblique fracture of the fourth metacarpal bone. This was reviewed and discussed with Dr. Singleton. Recommend volar splinting and follow-up as outpatient. We did discuss the rings and elected to allow patient to continue to wear them as long as she was able to spin the rings on her finger. If the finger begins to swell and she is unable to splint on the ring she is to return to ED immediately for ring removal. She was splinted by me. The rings were left on and bandaging done in such a way to allow patient access to the rings both visually and physically. She is to keep her hand elevated is much as possible. Ice on and off and acetaminophen to help with pain. Return precautions provided. Imaging Data Radiologic Study: Attestation: I personally reviewed and interpreted this imaging study as follows: Imaging: X-Ray My impression: see [facility] All Active Problems (Updated 04/23/25 @ 17:03 by Marcos Josue MD) Fracture of fourth metacarpal bone of left hand (Acute) Hemoptysis (Acute) Seronegative rheumatoid arthritis (Chronic) [facility] Rheumatology Asthma (Chronic) Essential hypertension (Chronic) Hyperlipidemia (Chronic) Major depressive disorder, recurrent (Chronic) Generalized anxiety disorder (Chronic) Insomnia (Chronic) Vitamin B12 deficiency (Chronic) Peripheral neuropathy (Chronic) Tremor (Chronic) Myoclonic jerking (Chronic) Thyroid nodule (Chronic) Chronic sinusitis (Chronic) Allergic rhinitis (Chronic) Osteoarthritis of carpometacarpal joint of left thumb (Chronic) Osteoarthritis (Chronic) 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) Cigarette smoker (Chronic) Rosacea (Chronic) Medical History Triquetral chip fracture (05/12/24) Iron deficiency anemia Herpes zoster Surgical History Status post phlebectomy (03/17/23) Left GSV ablation and stab phlebectomies Hx of varicose vein ligation and stripping LLE S/P left breast biopsy S/P arthroscopy of shoulder Hx of thumb surgery right trigger finger release, Trapezial resection arthroplasty History of ankle surgery H/O left inguinal hernia repair (~01/27/21) Status post appendectomy Status post tonsillectomy Family History Mother , 70 ALS (amyotrophic lateral sclerosis) Father , 86 from metastatic cancer Prostate cancer Stroke Skin cancer Hypertension Sister Diabetes Depression Heart disease Hypertension Brother Alcohol abuse Depression Hypertension Maternal Grandfather No problems noted. Paternal Grandfather , 89 Heart disease Stroke Maternal Grandmother , approx 60 Cancer Paternal Grandmother , 59 Vaginal cancer Heart disease Son Heart disease Daughter Asthma Hypertension Social History Smoking/Tobacco Use Status: Current every day Tobacco Type: cigarettes Smoking packs per day: 0.5 Smoking cigarettes per day: 10.0 Years smoked: 30 Smoking pack-years: 15.00 Tobacco: How many years used: 30 Quit status: has quit before Second Hand Exposure: Yes Smoking risk assessment performed?: Yes Alcohol Intake: never Drug use: Never Substance use type: does not use Counseling provided: provider counseling Caregiver/Support person: No Household members: none Housing: house Number of Children: 2 Communication Needs: None Do you need help understanding health information?: Rarely Pets and animals: Yes Pets and animals: cat(s) and dog(s) Sexually active: No Do you think of yourself as: straight/heterosexual Current gender identity: female What is your relationship status?: How often do you talk on the phone with friends or family?: three or more times per week How often do you get together with friends or relatives?: three or more times per week Panel score (0-1 are the most socially isolated patients): 1 Helmet use: No Do you feel safe at home: Yes Do you feel safe in your relationship?: Yes Female Reproductive History Menstrual Menopause type: natural History History 2 Para 2 Hx # Term Pregnancies Multiple births Hx # Pregnancies Ectopic pregnancies AB induced Hx Number of Living Children 2 AB spontaneous
--- NOTE | 2025-04-23 15:30 | DI.RAD_ITS ---
Exam(s) XR HAND LT COMPLETE EXAM: XR HAND LT COMPLETE CLINICAL HISTORY: trauma. TECHNIQUE: 2D digital imaging was performed. Three views. COMPARISON: No exams were available for comparison FINDINGS: BONES: Non displaced oblique fracture of the 4th metacarpal. Questionable nondisplaced fracture of the 5th metacarpal. No bony destructive lesion is seen. JOINTS: No dislocation present. Severe degenerative changes of the first cmc joint. SOFT TISSUE: Normal. IMPRESSION: Non displaced oblique fracture of the 4th metacarpal. Questionable nondisplaced fracture of the 5th metacarpal. DATA REPOSITORY: RADIATION DOSE DELIVERED:
[2025-04-23] MEDS: Acetaminophen 500 MG TAB 1000 MG PO (16:35)
== END 2025-04-23 17:19 | disposition home or self-care (01) ==
PROVIDERS: Emergency Provider Emergency Medicine; PCP Nurse Practitioner Family
DX: S62.605A Fracture of unspecified phalanx of left ring finger, initial encounter for closed fracture (principal); X58.XXXA Exposure to other specified factors, initial encounter
CPT/HCPCS: 99283 ×2; 29130; 73130

== ENCOUNTER 2025-04-27 09:01 | Emergency (ER) | payer MEDICARE, SELFPAY ==
[2025-04-27 09:05] VITALS: BP 133/78; PULSE 69; RESP 18; TEMP 36.6; O2SAT 95
--- NOTE | 2025-04-27 09:19 | W.ED.GENAD ---
Discharge Plan Disposition Patient Disposition: Home Condition: Stable Discharge Details Clinical Impression: Finger swelling, Cast discomfort Primary Care Provider: Clarissa Maldonado ED Provider: Seth Cesepdes Home Meds and New Rx's Prescriptions: Continued levocetirizine [Xyzal] 5 mg tablet 5 mg PO DAILY PRN (Reason: allergy symptoms) Qty: 90 3RF mometasone 50 mcg/actuation spray,non-aerosol 1 spray intranasal BID PRN (Reason: nasal congestion) Qty: 17 3RF Rx Instructions: administer into each nostril amoxicillin-pot clavulanate 875-125 mg tablet 1 tab PO Q12H Qty: 28 0RF Rx Instructions: Take 1 tablet twice a day for 14 days ipratropium-albuterol 0.5 mg-3 mg(2.5 mg base)/3 mL solution for nebulization 3 ml inhalation Q8H PRN (Reason: wheezing) Qty: 90 0RF triamcinolone acetonide 0.1 % cream 1 applic topical DAILY PRN (Reason: dermatitis) Qty: 80 0RF lorazepam 0.5 mg tablet 0.5 mg PO BID PRN for anxiety Qty: 60 0RF buspirone 15 mg tablet 15 mg PO BID Qty: 180 3RF cholecalciferol (vitamin D3) 125 mcg (5,000 unit) tablet 5,000 unit PO DAILY Qty: 90 3RF adalimumab 40 mg/0.4 mL pen injector kit 40 mg subcut Q2W Patient Comments: calcium carbonate 600 mg calcium (1,500 mg) tablet 600 mg PO BID Qty: 180 3RF amlodipine 5 mg tablet 5 mg PO DAILY Qty: 90 3RF clotrimazole 1 % cream 1 applic topical BID Qty: 45 0RF Rx Instructions: Apply to affected areas twice a day for 2wks or until resolution cyclosporine [Restasis] 0.05 % dropperette 1 drp ophthalmic (eye) Q12H leucovorin calcium 10 mg tablet 10 mg PO ONCE Rx Instructions: take one hour after taking methotrexate pregabalin 100 mg capsule 100 mg PO DAILY AM Qty: 90 1RF Rx Instructions: in addition to 150mg HS pregabalin 150 mg capsule 150 mg PO QHS Qty: 90 1RF Rx Instructions: along with 100mg in the am lidocaine 5 % cream 1 applic topical QID PRN (Reason: pain) Qty: 30 5RF Rx Instructions: Apply small amount to feet as needed for pain cyanocobalamin (vitamin B-12) 1,000 mcg/mL solution 1,000 mcg IM .[id number] Qty: 10 3RF folic acid 1 mg tablet 3 mg PO DAILY methotrexate sodium 2.5 mg tablet 12.5 mg PO QWEEK loratadine 10 mg tablet 10 mg PO DAILY levalbuterol tartrate 45 mcg/actuation HFA aerosol inhaler 2 inh IH Q4H PRN (Reason: shortness of breath or wheezing) Qty: 15 3RF trazodone 50 mg tablet 50 - 100 mg PO QHS PRN (Reason: sleep) Qty: 90 2RF potassium chloride 20 mEq tablet extended release 20 meq PO DAILY Qty: 90 3RF rosuvastatin 10 mg tablet 10 mg PO DAILY Qty: 90 3RF hydrochlorothiazide 25 mg tablet 25 mg PO DAILY Qty: 90 3RF (DME) Any.DO Luer Lock Syr-needle 3 mL 25 gauge x 1 syringe See Rx Instructions .Route Qty: 100 3RF Rx Instructions: For Vitamin B12 injections Q 2 weeks ferrous sulfate 325 mg (65 mg iron) tablet 325 mg PO Q OTHER DAY Qty: 50 3RF leucovorin calcium 5 mg tablet 5 mg PO .weekly Patient Comments: TAKE ONE TABLET BY MOUTH ONCE WEEKLY 12 HOURS AFTER METHOTREXATE DOSE TO COUNTERACT METHOTREXATE SIDE EFFECTS HPI General Mode of arrival: ambulatory. Date/Time Provider Initiated Documentation: 04/27/25 09:08. Limitations to Documentation: no limitations. Information obtained by: patient. HPI Narrative: HISTORY OF PRESENT ILLNESS 64-year-old female with a left hand injury presenting with finger swelling. Diagnosed with a fracture of the fourth metacarpal bone on 04/23/2025 in the ED. Splint applied, instructed to follow up with orthopedics. Injury occurred when her dog moved in one direction while she held onto a shopping cart moving in the opposite direction, causing her finger to bend unnaturally. Patient here today with concern that finger swelling and pain increasing due to rings. Patient refused to allow team to remove rings on initial visit. Patient also noting significant discomfort due to splint fiberglass rubbing her fingers and due to position of splint. Patient notes second digit not currently splinted and any movement of second digit causes discomfort of fractured finger. Patient requesting splinting of the second digit as well. Related Data Home Medications ?Medication ?Instructions ?Recorded ?Confirmed ipratropium 0.5 mg-albuterol 3 mg 3 ml inhalation Q8H PRN wheezing 05/09/23 04/27/25 (2.5 mg base)/3 mL nebulization #90 mL soln triamcinolone acetonide 0.1 % 1 applic topical DAILY PRN 06/06/23 04/27/25 topical cream dermatitis #80 grams loratadine 10 mg tablet 10 mg PO DAILY 11/30/23 04/27/25 levocetirizine 5 mg tablet (Xyzal) 5 mg PO DAILY PRN allergy symptoms 02/03/24 04/27/25 #90 tabs mometasone 50 mcg/actuation nasal 1 spray intranasal BID PRN nasal 02/20/24 04/27/25 spray congestion #17 grams clotrimazole 1 % topical cream 1 applic topical BID #45 grams 03/28/24 04/27/25 lorazepam 0.5 mg tablet 0.5 mg PO BID PRN for anxiety #60 05/03/24 04/27/25 tab-caps levalbuterol tartrate 45 2 inh inhalation Q4H PRN shortness 06/26/24 04/27/25 mcg/actuation aerosol inhaler of breath or wheezing #15 grams cyanocobalamin (vitamin B-12) 1,000 mcg IM .[id number] #10 mL 07/23/24 04/27/25 1,000 mcg/mL injection solution trazodone 50 mg tablet 50 - 100 mg (1 - 2 x 50 mg) PO QHS 10/15/24 04/27/25 PRN sleep #90 tabs potassium chloride 20 mEq 20 meq PO DAILY #90 tabs 10/17/24 04/27/25 tablet,extended release rosuvastatin 10 mg tablet 10 mg PO DAILY #90 tabs 10/29/24 04/27/25 hydrochlorothiazide 25 mg tablet 25 mg PO DAILY #90 tabs 11/21/24 04/27/25 syringe with needle 3 mL 25 gauge #100 ea 12/18/24 04/27/25 x 1 (Any.DO Luer Lock Syringe with needle) cyclosporine 0.05 % eye drops in a 1 drp ophthalmic (eye) Q12H 03/27/25 04/27/25 dropperette (Restasis) folic acid 1 mg tablet 3 mg PO DAILY 03/27/25 04/27/25 leucovorin calcium 10 mg tablet 10 mg PO ONCE 03/27/25 04/27/25 lidocaine 5 % topical cream 1 applic topical QID PRN pain #30 03/27/25 04/27/25 grams methotrexate sodium 2.5 mg tablet 12.5 mg PO QWEEK 03/27/25 04/27/25 pregabalin 100 mg capsule 100 mg PO DAILY AM #90 caps 03/27/25 04/27/25 pregabalin 150 mg capsule 150 mg PO QHS #90 caps 03/27/25 04/27/25 adalimumab 40 mg/0.4 mL 40 mg subcut Q2W 03/29/25 04/27/25 subcutaneous pen kit amlodipine 5 mg tablet 5 mg PO DAILY #90 tabs 03/29/25 04/27/25 buspirone 15 mg tablet 15 mg PO BID #180 tabs 03/29/25 04/27/25 calcium carbonate 600 mg PO BID #180 tabs 03/29/25 04/27/25 cholecalciferol (vitamin D3) 125 5,000 unit PO DAILY #90 tabs 03/29/25 04/27/25 mcg (5,000 unit) tablet ferrous sulfate 325 mg (65 mg 325 mg PO Q OTHER DAY #50 tabs 04/01/25 04/27/25 iron) tablet amoxicillin 875 mg-potassium 1 tab PO Q12H #28 tabs 04/16/25 04/27/25 clavulanate 125 mg tablet leucovorin calcium 5 mg tablet 5 mg PO .weekly 04/23/25 04/27/25 Previous Rx's ?Medication ?Instructions ?Recorded ipratropium 0.5 mg-albuterol 3 mg 3 ml inhalation Q8H PRN wheezing 05/09/23 (2.5 mg base)/3 mL nebulization #90 mL soln triamcinolone acetonide 0.1 % 1 applic topical DAILY PRN 06/06/23 topical cream dermatitis #80 grams levocetirizine 5 mg tablet (Xyzal) 5 mg PO DAILY PRN allergy symptoms 02/03/24 #90 tabs mometasone 50 mcg/actuation nasal 1 spray intranasal BID PRN nasal 02/20/24 spray congestion #17 grams clotrimazole 1 % topical cream 1 applic topical BID #45 grams 03/28/24 lorazepam 0.5 mg tablet 0.5 mg PO BID PRN for anxiety #60 05/03/24 tab-caps levalbuterol tartrate 45 2 inh inhalation Q4H PRN shortness 06/26/24 mcg/actuation aerosol inhaler of breath or wheezing #15 grams cyanocobalamin (vitamin B-12) 1,000 mcg IM .[id number] #10 mL 07/23/24 1,000 mcg/mL injection solution trazodone 50 mg tablet 50 - 100 mg (1 - 2 x 50 mg) PO QHS 10/15/24 PRN sleep #90 tabs potassium chloride 20 mEq 20 meq PO DAILY #90 tabs 10/17/24 tablet,extended release rosuvastatin 10 mg tablet 10 mg PO DAILY #90 tabs 10/29/24 hydrochlorothiazide 25 mg tablet 25 mg PO DAILY #90 tabs 11/21/24 syringe with needle 3 mL 25 gauge #100 ea 12/18/24 x 1 (Any.DO Luer Lock Syringe with needle) lidocaine 5 % topical cream 1 applic topical QID PRN pain #30 03/27/25 grams pregabalin 100 mg capsule 100 mg PO DAILY AM #90 caps 03/27/25 pregabalin 150 mg capsule 150 mg PO QHS #90 caps 03/27/25 amlodipine 5 mg tablet 5 mg PO DAILY #90 tabs 03/29/25 buspirone 15 mg tablet 15 mg PO BID #180 tabs 03/29/25 calcium carbonate 600 mg PO BID #180 tabs 03/29/25 cholecalciferol (vitamin D3) 125 5,000 unit PO DAILY #90 tabs 03/29/25 mcg (5,000 unit) tablet ferrous sulfate 325 mg (65 mg 325 mg PO Q OTHER DAY #50 tabs 04/01/25 iron) tablet amoxicillin 875 mg-potassium 1 tab PO Q12H #28 tabs 04/16/25 clavulanate 125 mg tablet Allergies Allergy/AdvReac Type Severity Reaction Status Date / Time doxycycline AdvReac Severe ABD Verified 04/27/25 09:07 CRAMPS/ CONSTIPATION nitrofurantoin (From AdvReac Intermediate Dizziness/L Verified 04/27/25 09:07 Macrobid) ighthead propranolol AdvReac Intermediate DEPRESSION Verified 04/27/25 09:07 albuterol AdvReac Mild tremors Verified 04/27/25 09:07 azithromycin AdvReac Mild Palpitation Verified 04/27/25 09:07 s meloxicam AdvReac Mild fluid Verified 04/27/25 09:07 retention erythromycin base AdvReac Unknown NAUSEA/VOMI Verified 04/27/25 09:07 TING General Stated Complaint: Recheck JOLENE: 4 Review of Systems Musculoskeletal Musculoskeletal: Reports as per HPI Exam Extrem Other: Left fourth digit swollen distal to ring, no skin discoloration Splint removed and some mild skin irritation where had been rubbing fiberglass Course Vital Signs Vital signs: Vital Signs Temperature 36.6 C 04/27/25 09:05 Pulse 69 04/27/25 09:05 Respiratory Rate 18 04/27/25 09:05 Blood Pressure 133/78 04/27/25 09:05 Pulse Oximetry 95 04/27/25 09:05 Temperature 36.6 C 04/27/25 09:05 Pulse 69 04/27/25 09:05 Respiratory Rate 18 04/27/25 09:05 Blood Pressure 133/78 04/27/25 09:05 Pulse Oximetry 95 04/27/25 09:05 Medical Decision Making 64-year-old female seen here in the emergency department on 04/23/2025 and diagnosed with fracture of her fourth metacarpal. Patient had refused ring removal at that time. Splint was applied. Patient returns today with swelling of her fourth digit requesting ring removal. Patient also noting significant discomfort and splint in current position and requesting second digit also be splinted due to discomfort. Ring was cut off without complication. Splint removed. New ulnar gutter splint applied in slight flexion and a more comfortable position. Patient neurovascular intact post blunt application. Plan for discharge with outpatient follow-up with orthopedics. Quality:SDOH Health Related Social Needs: Health related social needs details . PFSH All Active Problems (Updated 04/27/25 @ 09:52 by Seth Cespedes MD) Cast discomfort (Acute) Finger swelling (Acute) Fracture of fourth metacarpal bone of left hand (Acute) Hemoptysis (Acute) Seronegative rheumatoid arthritis (Chronic) [facility] [place] [facility] [place]hma (Chronic) Essential hypertension (Chronic) Hyperlipidemia (Chronic) Major depressive disorder, recurrent (Chronic) Generalized anxiety disorder (Chronic) Insomnia (Chronic) Vitamin B12 deficiency (Chronic) Peripheral neuropathy (Chronic) Tremor (Chronic) Myoclonic jerking (Chronic) Thyroid nodule (Chronic) Chronic sinusitis (Chronic) Allergic rhinitis (Chronic) Osteoarthritis of carpometacarpal joint of left thumb (Chronic) Osteoarthritis (Chronic) 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) Cigarette smoker (Chronic) Rosacea (Chronic) Medical History Triquetral chip fracture (05/12/24) Iron deficiency anemia Herpes zoster Surgical History Status post phlebectomy (03/17/23) Left GSV ablation and stab phlebectomies Hx of varicose vein ligation and stripping LLE S/P left breast biopsy S/P arthroscopy of shoulder Hx of thumb surgery right trigger finger release, Trapezial resection arthroplasty History of ankle surgery H/O left inguinal hernia repair (~01/27/21) Status post appendectomy Status post tonsillectomy Family History Mother , 70 ALS (amyotrophic lateral sclerosis) Father , 86 from metastatic cancer Prostate cancer Stroke Skin cancer Hypertension Sister Diabetes Depression Heart disease Hypertension Brother Alcohol abuse Depression Hypertension Maternal Grandfather No problems noted. Paternal Grandfather , 89 Heart disease Stroke Maternal Grandmother , approx 60 Cancer Paternal Grandmother , 59 Vaginal cancer Heart disease Son Heart disease Daughter Asthma Hypertension Social History Smoking/Tobacco Use Status: Current every day Tobacco Type: cigarettes Smoking packs per day: 0.5 Smoking cigarettes per day: 10.0 Years smoked: 30 Smoking pack-years: 15.00 Tobacco: How many years used: 30 Quit status: has quit before Second Hand Exposure: Yes Smoking risk assessment performed?: Yes Alcohol Intake: never Drug use: Never Substance use type: does not use Counseling provided: provider counseling Caregiver/Support person: No Household members: none Housing: house Number of Children: 2 Communication Needs: None Do you need help understanding health information?: Rarely Pets and animals: Yes Pets and animals: cat(s) and dog(s) Sexually active: No Do you think of yourself as: straight/heterosexual Current gender identity: female What is your relationship status?: How often do you talk on the phone with friends or family?: three or more times per week How often do you get together with friends or relatives?: three or more times per week Panel score (0-1 are the most socially isolated patients): 1 Helmet use: No Do you feel safe at home: Yes Do you feel safe in your relationship?: Yes Female Reproductive History Menstrual Menopause type: natural History History 2 Para 2 Hx # Term Pregnancies Multiple births Hx # Pregnancies Ectopic pregnancies AB induced Hx Number of Living Children 2 AB spontaneous
[2025-04-27 10:03] VITALS: BP 119/77; PULSE 69; RESP 18; O2SAT 97
== END 2025-04-27 10:06 | disposition home or self-care (01) ==
PROVIDERS: Emergency Provider Student in an Organized Health Care Education/Training Program; PCP Nurse Practitioner Family
DX: S62.305D Unspecified fracture of fourth metacarpal bone, left hand, subsequent encounter for fracture with routine healing (principal); M79.89 Other specified soft tissue disorders; X58.XXXD Exposure to other specified factors, subsequent encounter
CPT/HCPCS: 99283 ×2; 29125

== ENCOUNTER 2025-05-10 11:32 | Outpatient (CLI) | payer MEDICARE, SELFPAY ==
--- NOTE | 2025-05-10 10:30 | DI.RAD_ITS ---
Exam(s) XR HAND LT COMPLETE EXAM: XR HAND LT COMPLETE CLINICAL HISTORY: left hand fracture. TECHNIQUE: 2D digital imaging was performed. Three views. COMPARISON: CR XR HAND LT COMPLETE from 04/23/2025 FINDINGS: BONES: Stable alignment of 4th metacarpal fracture. No fractures visible involving the 5th metacarpal. no bony destructive lesion is seen. JOINTS: No dislocation present. Severe degenerative changes are again noted at the 1st carpal metacarpal joint. SOFT TISSUE: Normal. IMPRESSION: Stable alignment of 4th metacarpal fracture. DATA REPOSITORY: RADIATION DOSE DELIVERED:
== END 2025-05-10 11:33 | disposition home or self-care (01) ==
LOC: DIORS 11:35
PROVIDERS: PCP Nurse Practitioner Family; Referring Provider Nurse Practitioner Family; Visit Provider Student in an Organized Health Care Education/Training Program
DX: S62.305A Unspecified fracture of fourth metacarpal bone, left hand, initial encounter for closed fracture (principal); X58.XXXA Exposure to other specified factors, initial encounter
CPT/HCPCS: 99213; 73130

== ENCOUNTER → 2025-05-16 08:11 | Outpatient (BNVA) | payer MEDICARE, SELFPAY | PROVIDERS: PCP Nurse Practitioner Family; Referring Provider Nurse Practitioner Family; Visit Provider Student in an Organized Health Care Education/Training Program | DX: S62.305A Unspecified fracture of fourth metacarpal bone, left hand, initial encounter for closed fracture (principal); X58.XXXA Exposure to other specified factors, initial encounter | CPT/HCPCS: 99213 ==

== ENCOUNTER 2025-05-27 03:29 | Outpatient (CLI) | payer MEDICARE, SELFPAY ==
[2025-05-27 14:16] LABS: Abs Immature Grans 0.01 10^3/uL (0.0-0.06); HCT 38.3 % (36.0-46.0); HGB 12.8 g/dL (11.2-15.7); Immature Grans % 0.2 %; MCH 27.9 pg (27.0-33.0); MCHC 33.4 % (32.0-36.0); MCV 83 fL (80-95); MPV 9.3 fL (8.0-11.0); Platelet Count 242 10^3/uL (130-400); RBC 4.59 10^6/uL (3.93-5.22); RDW 16.1 % (11.7-14.6); RDW-SD 47.8 fL; WBC 6.05 10^3/uL (4.4-10.8)
[2025-05-27 14:26] LABS: ALT 31 U/L (14-59); AST 14 U/L (15-37); Albumin 3.9 g/dL (3.4-5.0); Alkaline Phosphatase 64 U/L (46-116); Anion Gap 8.9 mmol/L (3-11); BUN 11 mg/dL (7-18); Bilirubin, Total 0.6 mg/dL (0.2-1.0); CO2 30.1 mmol/L (21.0-32.0); Calcium 9.2 mg/dL (8.5-10.1); Chloride 101 mmol/L (98-107); Estimated GFR 70.51 (mL/min/1.73m2); Glucose 90 mg/dL (74-106); Potassium 3.3 mmol/L (3.5-5.1); Sodium 140 mmol/L (136-145); Total Protein 6.7 g/dL (6.4-8.2)
== END 2025-05-27 03:30 | disposition home or self-care (01) ==
LOC: LOS 03:29
PROVIDERS: PCP Nurse Practitioner Family; Visit Provider Student in an Organized Health Care Education/Training Program
DX: M06.00 Rheumatoid arthritis without rheumatoid factor, unspecified site (principal)
CPT/HCPCS: 36415; 80053; 85025

== ENCOUNTER 2025-06-07 11:46 | Outpatient (CLI) | payer MEDICARE, SELFPAY ==
--- NOTE | 2025-06-07 09:45 | DI.RAD_ITS ---
Exam(s) XR HAND LT COMPLETE EXAM: XR HAND LT COMPLETE CLINICAL HISTORY: F/U L HAND FX. TECHNIQUE: 2D digital imaging was performed. Three views. COMPARISON: No exams were available for comparison FINDINGS: BONES: Stable alignment of 4th metacarpal fracture. Increased callus formation. No bony destructive lesion is seen. JOINTS: No dislocation present. Severe degenerative changes again noted, greatest at the 1st carpal metacarpal joint. SOFT TISSUE: Normal. IMPRESSION: Healing fracture of the 4th metacarpal. DATA REPOSITORY: RADIATION DOSE DELIVERED:
== END 2025-06-07 11:47 | disposition home or self-care (01) ==
LOC: DIORS 11:48
PROVIDERS: PCP Nurse Practitioner Family; Referring Provider Nurse Practitioner Family; Visit Provider Physician Assistant
DX: M18.12 Unilateral primary osteoarthritis of first carpometacarpal joint, left hand (principal); S62.112D Displaced fracture of triquetrum [cuneiform] bone, left wrist, subsequent encounter for fracture with routine healing; X58.XXXD Exposure to other specified factors, subsequent encounter
CPT/HCPCS: 99213; 73130

== ENCOUNTER 2025-06-19 09:50 | Emergency (ER) | payer MEDICARE, SELFPAY ==
[2025-06-19 09:52] VITALS: BP 143/85; PULSE 73; RESP 18; TEMP 36.1; O2SAT 98
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
--- NOTE | 2025-06-19 10:26 | DI.RAD_ITS ---
Exam(s) XR HAND LT COMPLETE EXAM: XR HAND LT COMPLETE CLINICAL HISTORY: Left hand trauma left little finger pain. TECHNIQUE: 2D digital imaging was performed. COMPARISON: CR XR HAND LT COMPLETE from 06/07/2025 FINDINGS: 3 views Again noted is a previously described oblique fracture at the midshaft of the 4th metacarpal. Appearance of the fracture site exhibits no significant change compared to 06/07/2025. Fracture line still visible. There is some callus formation again noted. No further displacement. No additional fractures evident. Advanced degenerative changes at the 1st carpometacarpal joint incidentally noted. IMPRESSION: Unchanged appearance of the fracture site in the 4th metacarpal when compared to 06/07/2025. DATA REPOSITORY: RADIATION DOSE DELIVERED:
== END 2025-06-19 11:38 | disposition home or self-care (01) ==
PROVIDERS: Emergency Provider Emergency Medicine; PCP Nurse Practitioner Family
DX: S60.052A Contusion of left little finger without damage to nail, initial encounter (principal); X58.XXXA Exposure to other specified factors, initial encounter
CPT/HCPCS: 99283 ×2; 73130

== ENCOUNTER 2025-06-21 10:31 | Outpatient (REF) | payer MEDICARE, SELFPAY ==
[2025-06-21 16:11] LABS: Glucose Negative (Negative)
[2025-06-21 16:27] LABS: RBC 0-2 HPF (0-2); WBC 20-50 HPF (0-5)
== END 2025-06-21 10:32 | disposition home or self-care (01) ==
LOC: LBN 10:31
PROVIDERS: PCP Nurse Practitioner Family; Visit Provider Nurse Practitioner Family
DX: N30.90 Cystitis, unspecified without hematuria (principal)
CPT/HCPCS: 87077; 81003; 81015; 87086; 87186

== ENCOUNTER → 2025-07-04 09:46 | Outpatient (BNVA) | payer MEDICARE, SELFPAY | PROVIDERS: PCP Nurse Practitioner Family; Referring Provider Nurse Practitioner Family; Visit Provider Student in an Organized Health Care Education/Training Program | DX: S62.305A Unspecified fracture of fourth metacarpal bone, left hand, initial encounter for closed fracture (principal); S60.052A Contusion of left little finger without damage to nail, initial encounter; W54.1XXA Struck by dog, initial encounter; Y93.K1 Activity, walking an animal | CPT/HCPCS: 99213 ==

== ENCOUNTER 2025-07-30 01:28 | Outpatient (CLI) | payer MEDICARE, SELFPAY ==
[2025-07-30 13:30] LABS: Abs Immature Grans 0.03 10^3/uL (0.0-0.06); HCT 36.4 % (36.0-46.0); HGB 12.4 g/dL (11.2-15.7); Immature Grans % 0.4 %; MCH 28.2 pg (27.0-33.0); MCHC 34.1 % (32.0-36.0); MCV 83 fL (80-95); MPV 8.8 fL (8.0-11.0); Platelet Count 329 10^3/uL (130-400); RBC 4.39 10^6/uL (3.93-5.22); RDW 14.7 % (11.7-14.6); RDW-SD 44.1 fL; WBC 7.79 10^3/uL (4.4-10.8)
[2025-07-30 13:42] LABS: ALT 14 U/L (10-49); AST 17 U/L (<34); Albumin 4.0 g/dL (3.2-5.0); Alkaline Phosphatase 60 U/L (46-116); Anion Gap 3.3 mmol/L (3-11); BUN 11 mg/dL (9-23); Bilirubin, Total 0.3 mg/dL (0.2-1.2); CO2 28.7 mmol/L (20.0-31.0); Calcium 9.1 mg/dL (8.3-10.6); Chloride 104 mmol/L (98-107); Glucose 93 mg/dL (74-106); Potassium 4.0 mmol/L (3.5-5.1); Sodium 136 mmol/L (136-145); Total Protein 6.4 g/dL (5.7-8.2)
== END 2025-07-30 01:29 | disposition home or self-care (01) ==
LOC: LOS 01:28
PROVIDERS: PCP Nurse Practitioner Family; Visit Provider Student in an Organized Health Care Education/Training Program
DX: M06.00 Rheumatoid arthritis without rheumatoid factor, unspecified site (principal); M79.641 Pain in right hand; M79.642 Pain in left hand; M79.671 Pain in right foot; M79.672 Pain in left foot; M06.4 Inflammatory polyarthropathy
CPT/HCPCS: 36415; 80053; 85025